=== PATIENT | female | born 1950 | race Caucasian/White ===

== ENCOUNTER → 2016-06-19 | Outpatient (CLI) | payer BC ==
[~2016-06-19] MED LIST: ERGO500037 PO; EYE DROPS OPB; IPRASOL4 INH; LDDP5 TD; MOME100A INH; MULT-506 PO; PARO1TAB27 PO; POLY335019 PO; PRED20TA PO; PRLSR20 PO; SUCR1TAB29 PO; TRAV0.00 OPB; ULT50X PO
[2016-06-19 12:51] LABS: BASO % 0.8 %; BASO ABS # 0.04 K/uL (0-0.2); COMPLETE YES; EOS % 1.9 %; HEMATOCRIT 41.7 % (37-47); IG% 0.2 %; LYMPH % 36.3 %; LYMPH ABS # 1.75 K/uL (1.2-3.4); MEAN CELL VOLUME 90.8 fL (80-100); MEAN CORPUSCULAR HEMOGLOBIN 30.7 pg (25-34); MEAN CORPUSCULAR HGB CONC 33.8 g/dl (32-36); MEAN PLATELET VOLUME 10.4 fL (7.4-10.4); MONO % 7.3 %; NEUT % 53.5 %; PLATELET COUNT 263 K/uL (130-400); RED BLOOD COUNT 4.59 M/uL (4.2-5.4); WHITE BLOOD COUNT 4.82 K/uL (4.8-10.8)
[2016-06-19 12:52] LABS: URINE APPEARANCE CLEAR (CLEAR); URINE BILIRUBIN NEG (NEG); URINE COLOR DK YELLOW; URINE EPITHELIAL CELL AUTO >30 /lpf (0-5); URINE NITRITE NEG (NEG); URINE SPECIFIC GRAVITY 1.027 (1.000-1.030); UROBILINOGEN NEG (NEG); ZZUR CULT IF INDIC CLEAN CATCH NO
[2016-06-19 12:55] LABS: MANUAL MICROSCOPIC REQUIRED? NO; REVIEW REQ? NO
[2016-06-19 13:18] LABS: ALT/SGPT 22 U/L (12-78); AST/SGOT 26 U/L (15-37); BLOOD UREA NITROGEN 19 mg/dl (7-18); BUN/CREATININE RATIO 27.9 (10-20); CALCIUM 9.1 mg/dl (8.5-10.1); CARBON DIOXIDE 26 mmol/L (21-32); CHLORIDE 106 mmol/L (98-107); CHOLESTEROL 226 mg/dl (0-200); CREATININE 0.69 mg/dl (0.60-1.20); GLUCOSE 88 mg/dl (70-99); POTASSIUM 4.2 mmol/L (3.5-5.1); SODIUM 140 mmol/L (136-145)
[2016-06-19 13:20] LABS: ALB/GLOB RATIO 1.3 (0.9-2); ALKALINE PHOSPHATASE 68 U/L (45-117); CHOLESTEROL/HDL RATIO 2.8; HDL CHOLESTEROL 80 mg/dl; LDL CHOLESTEROL CALCULATED 130 mg/dl; TRIGLYCERIDES 79 mg/dl (0-150); VERY LOW DENSITY LIPOPROT CALC 16 mg/dl
[2016-06-19 13:33] LABS: ESTIMATED AVERAGE GLUCOSE 111 mg/dl; HA1C FLAG Normal (Normal)
== END | disposition home or self-care (01) ==
LOC: C.LABBFT 09:39
PROVIDERS: ATTEND Internal Medicine
DX: R10.13 Epigastric pain (principal); E55.9 Vitamin D deficiency, unspecified; R73.01 Impaired fasting glucose; E53.8 Deficiency of other specified B group vitamins

== ENCOUNTER → 2016-07-23 | Day surgery (SDC) | payer BC ==
[2016-07-20 09:29] VITALS: Ht 160 cm; Wt 49.5 kg
[~2016-07-23] VITALS: Ht 160 cm; Wt 49.5 kg
[~2016-07-23] MED LIST changes: +ALBUTEROL HFA INHALER 8.5 GM INH ONE; +DEXAMETHASONE SOD INJ 4 MG/ML VIAL ONE; -EYE DROPS OPB; +HYDROCORTISONE SOD SUCCINATE 100 MG/2 ML VIAL ONE; +LIDOCAINE HCL 2% 2 ML VIAL (20MG/ML) ONE; +MIDAZOLAM HCL 1 MG/ML 2ML VIAL ONE; +ONDANSETRON INJ 2 MG/ML 2 ML VIAL ONE; -PRED20TA PO; +PROPOFOL IV EMULSION 10 MG/ML 20 ML VIAL IV ONE; +SODIUM CHLORIDE 0.9% 500ML 500 ML IV ONE; -TRAV0.00 OPB
[2016-07-23 10:31] VITALS: TEMP 36.5
--- NOTE | 2016-07-23 11:42 | Endo History and Physical ---
History & Physical Date of Service: Jul 23, 2016. Chief Complaint: EPIGASTRIC ABDOMINAL PAIN Referring Physician: DR. WAYNE History of Present Illness 65 yo CF who presents for EGD secondary to epigastric abdominal pain. Past Medical History Arthritis, Asthma, Pulmonary Emboli, Glaucoma, Cancer, Thrombophlebitis, COPD, Thyroid Disease, Liver Disease, Depression Past Surgical History Hx Cardiac Surgery: No Hx Internal Defibrillator: No Hx Pacemaker: No Hx Abdominal Surgery: Yes (BOWEL OBSTRUCTION) Hx of Implantable Prosthesis: No Hx Post-Op Nausea and Vomiting: No Hx Cancer Surgery: Yes (STOMACH REMOVAL, PORT-A-CATH INSERTION, FEEDING TUBE INSERTION AND REMOVAL) Hx Thoracic Surgery: No Hx Orthopedic: Yes (RT SHOULDER SURGERY X2, LT SHOULDER X1, LT KNEE SURGERY) Hx Urinary Tract Surgery: No Family History None Social History Smoking Status: Former Smoker Hx Substance Use: No Hx Alcohol Use: No Allergies Coded Allergies: Diltiazem (Verified Allergy, Mild, RASH, 07/23/16) Current Medications Reported Home Medications Medications Dose Route/Sig Max Daily Dose Days Date Category Vitamin D 66441 Unit (Ergocalciferol) 50,000 Unit Cap 50,000 Unit PO WK 07/20/16 Reported Paxil (Paroxetine HCl) 20 Mg Tab 20 Mg PO QAM 07/20/16 Reported Prilosec (Omeprazole) 20 Mg Capcr 20 Mg PO QAM 09/14/15 Reported Duoneb (Ipratropium-Albuterol) 3 Ml Nebu 1 Treatment INH Q4H PRN 08/31/15 Reported Miralax (Polyethylene Glycol 3350) 1 Pow Pow 17 Gm PO HS 08/31/15 Reported Multivitamin (Multivitamins) Tab 1 Tab PO HS 08/31/15 Reported Dulera 100/5 Mcg (Mometasone Furoate-Formoterol) 1 Aer Aer 2 Puffs INH BID 08/28/13 Reported Vital Signs Weight (Kilograms): 49.55 Height (Feet): 5 Height (Inches): 3 Date Time Temp Pulse Resp B/P Pulse Ox O2 Delivery O2 Flow Rate FiO2 07/23/16 10:31 36.5 78 24 159/81 95 Room Air Physical Exam General Appearance: WD/WN, no apparent distress Respiratory/Chest: Auscultation: breath sounds normal Cardiovascular: Heart Auscultation: RRR Abdomen: Bowel Sounds: normal Inspection & Palpation: soft, non-distended, no tenderness, guarding & rebound Assessment and Plan Assessment: 65 yo CF who presents for EGD secondary to epigastric abdominal pain. Plan: Proceed with EGD.
--- NOTE | 2016-07-23 12:02 | Discharge Instructions ---
Endoscopy Patient Instructions Date / Procedure(s) Performed Jul 23, 2016. EGD Allergy Information Coded Allergies: Diltiazem (Verified Allergy, Mild, RASH, 07/23/16) Discharge Date / Findings Jul 23, 2016. Inflammation and smith at site of prior anastomosis in stomach s/p biopsies Medication Instructions OK to resume all medications today as prescribed. Reported Home Medications Medications Dose Route/Sig Max Daily Dose Days Date Category Vitamin D 55341 Unit (Ergocalciferol) 50,000 Unit Cap 50,000 Unit PO WK 07/20/16 Reported Paxil (Paroxetine HCl) 20 Mg Tab 20 Mg PO QAM 07/20/16 Reported Prilosec (Omeprazole) 20 Mg Capcr 20 Mg PO QAM 09/14/15 Reported Duoneb (Ipratropium-Albuterol) 3 Ml Nebu 1 Treatment INH Q4H PRN 08/31/15 Reported Miralax (Polyethylene Glycol 3350) 1 Pow Pow 17 Gm PO HS 08/31/15 Reported Multivitamin (Multivitamins) Tab 1 Tab PO HS 08/31/15 Reported Dulera 100/5 Mcg (Mometasone Furoate-Formoterol) 1 Aer Aer 2 Puffs INH BID 08/28/13 Reported Provider Instructions Activity Restrictions - No exercising or heavy lifting for 24 hours. - Do not drink alcohol the day of the procedure. - Do not drive a car or operate machinery until the day after the procedure. - Do not make any important decisions or sign important papers in 24 hours after the procedure. Following Day: - Return to full activity which may include returning to work/school. Diet Start your diet with liquids and light foods (jello, soup, juice, toast). Then eat your usual diet if not nauseated. Treatment For Common After Affects For mild abdominal pain, bloating, or excessive gas: - Rest - Eat lightly - Lie on right side Follow-Up Information Follow-up with DR. WAYNE as scheduled Anesthesia Information What You Should Know You have had a procedure that required some medicine to reduce anxiety and discomfort. This treatment is called moderate sedation. After receiving the treatment, you may be sleepy, but you will be able to breathe on your own. The effects of the treatment may last for several hours. Follow these instructions along with Activity/Diet recommendations noted above: * Do NOT do anything where dizziness or clumsiness would be dangerous. * Rest quietly at home today, then you can be up and about tomorrow. * Have a responsible person stay with you the rest of today. * You may have had an I.V. today. If so, you may take the dressing off later today. Recommendations Call your doctor if: * Trouble breathing * Continuous vomiting for more than 24 hours * Temperature above 101 degrees * Severe abdominal pain or bloating * Pain not relieved by pain medicine ordered * There is increased drainage or redness from any incision * A large amount of rectal bleeding greater than 2-3 tablespoons. (If you had a polyp/s removed or have hemorrhoids, a small amount of blood - from the rectum is to be expected.) * You have any unanswered questions or concerns. IN THE EVENT OF A SERIOUS EMERGENCY, GO TO THE NEAREST EMERGENCY ROOM Your discharge instructions were prepared by provider Arash Kee. Patient Instructions Signature Page Odalis Castellanos Patient (or Guardian) Signature/Date: I have read and understand the instructions given to me by my caregivers. Caregiver/RN/Doctor Signature/Date: The above-named patient and/or guardian has received patient instructions on this date. + Original Patient Signature Page (only) stays with chart. Please make copy for patient.
--- NOTE | 2016-07-23 12:13 | GI REPORT ---
Procedure Date: 07/23/2016 11:35 AM Procedure: Upper GI endoscopy Indications: Epigastric abdominal pain Medicines: Monitored Anesthesia Care Complications: No immediate complications. Estimated Blood Loss: Estimated blood loss: none. Procedure: Pre-Anesthesia Assessment: - Prior to the procedure, a History and Physical was performed, and patient medications and allergies were reviewed. The patient's tolerance of previous anesthesia was also reviewed. The risks and benefits of the procedure and the sedation options and risks were discussed with the patient. All questions were answered, and informed consent was obtained. Prior Anticoagulants: The patient has taken no previous anticoagulant or antiplatelet agents. ASA Grade Assessment: III - A patient with severe systemic disease. After reviewing the risks and benefits, the patient was deemed in satisfactory condition to undergo the procedure. After obtaining informed consent, the endoscope was passed under direct vision. Throughout the procedure, the patient's blood pressure, pulse, and oxygen saturations were monitored continuously. The scope was introduced through the mouth, and advanced to the jejunum. The upper GI endoscopy was accomplished without difficulty. The patient tolerated the procedure well. Findings: The esophagus was normal. 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 The gastrojejunal anastomosis was characterized by an intact staple line. This was traversed. The ulzjt-mt-jmzphar limb was characterized by healthy appearing mucosa. The oomhuhvh-of-axxmxhw limb was not examined as it could not be found. Biopsies were taken with a cold forceps for histology with removal of 2 smith. The examined jejunum was normal. Impression: - Normal esophagus. - Joann-en-Y gastrojejunostomy with gastrojejunal anastomosis characterized by an intact staple line. Biopsied. - Normal examined jejunum. Recommendation: - Resume previous diet. - Continue present medications. - Await pathology results. - Return to primary care physician as previously scheduled. Arash Kee DO 07/23/2016 12:13:04 PM This report has been signed electronically. Note Initiated On: 07/23/2016 11:35 AM I attest to the content of the Intraoperative Record and orders documented therein, exceptions below
--- NOTE | 2016-07-23 12:15 | Anesthesiology Progress Note ---
Anesthesia Post Op Note Date & Time Jul 23, 2016 at 12:15 Vital Signs Vital Signs Past 12 Hours Date Time Temp Pulse Resp B/P Pulse Ox O2 Delivery O2 Flow Rate FiO2 07/23/16 12:02 74 18 93/50 97 Room Air 07/23/16 10:31 36.5 78 24 159/81 95 Room Air Notes Mental Status: alert / awake / arousable, participated in evaluation Pt Amnestic to Procedure: Yes Nausea / Vomiting: adequately controlled Pain: adequately controlled Airway Patency, RR, SpO2: stable & adequate BP & HR: stable & adequate Hydration State: stable & adequate Anesthetic Complications: no major complications apparent
[2016-07-23 12:38] VITALS: BP 129/66; PULSE 75; O2SAT 94
== END | disposition home or self-care (01) ==
LOC: C.GI 10:03
PROVIDERS: ATTEND Internal Medicine
DX: K29.50 Unspecified chronic gastritis without bleeding (principal); R10.13 Epigastric pain; Z85.028 Personal history of other malignant neoplasm of stomach; J44.9 Chronic obstructive pulmonary disease, unspecified; Z86.711 Personal history of pulmonary embolism; Z87.891 Personal history of nicotine dependence; E07.9 Disorder of thyroid, unspecified

== ENCOUNTER 2016-07-27 18:23 | Observation (INO) | payer BC ==
[~2016-07-27] VITALS: Ht 157.5 cm; Wt 51.6 kg
[~2016-07-27 18:23] MED LIST changes: -ALBUTEROL HFA INHALER 8.5 GM INH ONE; -DEXAMETHASONE SOD INJ 4 MG/ML VIAL ONE; -HYDROCORTISONE SOD SUCCINATE 100 MG/2 ML VIAL ONE; -LDDP5 TD; -LIDOCAINE HCL 2% 2 ML VIAL (20MG/ML) ONE; -MIDAZOLAM HCL 1 MG/ML 2ML VIAL ONE; -ONDANSETRON INJ 2 MG/ML 2 ML VIAL ONE; -PROPOFOL IV EMULSION 10 MG/ML 20 ML VIAL IV ONE; -SODIUM CHLORIDE 0.9% 500ML 500 ML IV ONE; -SUCR1TAB29 PO; -ULT50X PO
[2016-07-27] MEDS ORDERED: SODIUM CHLORIDE 0.9% 1000ML 1,000 ML IV STA (18:28)
[2016-07-27] MEDS ORDERED: ONDANSETRON INJ 2 MG/ML 2 ML VIAL IV STA (18:36)
[2016-07-27 18:48] LABS: BASO % 0.6 %; BASO ABS # 0.04 K/uL (0-0.2); COMPLETE YES; EOS % 2.5 %; HEMATOCRIT 43.3 % (37-47); IG% 0.1 %; LYMPH % 41.8 %; LYMPH ABS # 2.82 K/uL (1.2-3.4); MEAN CELL VOLUME 91.4 fL (80-100); MEAN CORPUSCULAR HEMOGLOBIN 30.6 pg (25-34); MEAN CORPUSCULAR HGB CONC 33.5 g/dl (32-36); MEAN PLATELET VOLUME 10.1 fL (7.4-10.4); MONO % 6.8 %; NEUT % 48.2 %; PLATELET COUNT 292 K/uL (130-400); RED BLOOD COUNT 4.74 M/uL (4.2-5.4); WHITE BLOOD COUNT 6.75 K/uL (4.8-10.8)
--- NOTE | 2016-07-27 18:58 | DIAGNOSTIC IMAGING REPORT ---
CHEST ONE VIEW PORTABLE CLINICAL HISTORY: EVALUATE WEAKNESS dyspnea COMPARISON STUDY: 01/30/2016 FINDINGS: Emphysematous change. No acute infiltrate. Central catheters. Vena cava. IMPRESSION: Emphysematous change. No acute process. Electronically signed by: Jose E Draper M.D. 07/27/2016 6:56 PM Dictated Date/Time: 07/27/2016 6:56 PM
[2016-07-27 18:59] LABS: INR 0.9 (0.9-1.1); PARTIAL THROMBOPLASTIN RATIO 0.9; PROTHROMBIN TIME (PATIENT) 9.8 SECONDS (9.0-12.0)
[2016-07-27] MEDS: FENTANYL CITRATE INJ 50 MCG/1 ML 2 ML VIAL IV PRN ×3 (19:04→23:06)
[2016-07-27 19:11] LABS: ALT/SGPT 31 U/L (12-78); BLOOD UREA NITROGEN 21 mg/dl (7-18); CARBON DIOXIDE 26 mmol/L (21-32); CHLORIDE 103 mmol/L (98-107); GLUCOSE 137 mg/dl (70-99); POTASSIUM 3.9 mmol/L (3.5-5.1); SODIUM 139 mmol/L (136-145)
[2016-07-27 19:21] LABS: URINE APPEARANCE CLEAR (CLEAR); URINE BILIRUBIN NEG (NEG); URINE COLOR DK YELLOW; URINE NITRITE NEG (NEG); URINE PH 5.5 (4.5-7.5); URINE SPECIFIC GRAVITY 1.029 (1.000-1.030); UROBILINOGEN NEG (NEG)
[2016-07-27 19:21] LABS: ALKALINE PHOSPHATASE 94 U/L (45-117); AST/SGOT 35 U/L (15-37)
[2016-07-27 19:22] LABS: MANUAL MICROSCOPIC REQUIRED? NO; REVIEW REQ? NO
[2016-07-27] MEDS ORDERED: OPTIRAY 320 IV PRN (20:15)
--- NOTE | 2016-07-27 20:32 | DIAGNOSTIC IMAGING REPORT ---
CHEST CTA for PULMONARY ARTERIES CT DOSE: 215.13 mGy.cm HISTORY: Chest pain dyspnea TECHNIQUE: Multiaxial CT images of the chest were performed following the intravenous administration of contrast to evaluate the pulmonary arteries. Maximal intensity projection images were also obtained. COMPARISON STUDY: None. FINDINGS: There is a normal caliber thoracic aorta with no evidence for dissection. There is no evidence for pulmonary embolus. No pleural effusions. No pneumothorax. The liver and spleen are unremarkable. No mediastinal or hilar lymphadenopathy. The central airways are patent. The lungs are clear. Moderate emphysematous change IMPRESSION: No evidence for pulmonary embolus. The lungs are clear. Moderate emphysematous change. Electronically signed by: Jose E Draper M.D. 07/27/2016 8:31 PM Dictated Date/Time: 07/27/2016 8:29 PM
--- NOTE | 2016-07-27 22:13 | History and Physical ---
History & Physical Date & Time of Service: Jul 27, 2016 at 22:12 Chief Complaint: Chest Pain Primary Care Physician: Haseeb Stout M.D. History of Present Illness Source: patient, spouse The patient is a 65-year-old female with a past medical history of gastric cancer, status post gastrectomy, with recent EGD by Dr. Kee with removal of smith. She has had persistent symptoms of epigastric area burning before and after the EGD, but during the afternoon today she developed the sudden sensation of an elephant sitting on her chest, which prompted her to come to the emergency department for assessment. She has not had this type of symptom before, and the symptoms occurred at rest. She does have baseline intermittent nausea, but no vomiting. Past Medical/Surgical History Medical Problems: (1) Asthma Status: Chronic (2) blood clot (knee, chest) Status: Resolved (3) Bronchitis Status: Resolved (4) emphysema Status: Chronic (5) History of gastrectomy Status: Resolved (6) Pneumonia Status: Resolved (7) Skin problems Status: Chronic (8) Stomach cancer Status: Resolved (9) Stomach problems Status: Chronic Surgical Problems: (1) Hx of hysterectomy Status: Resolved Family History FHx: cancer FHx: lung disease Social History Smoking Status: Former Smoker Smokeless Tobacco Use: No Alcohol Use: none Drug Use: none Marital Status: Housing status: lives with family Occupational Status: employed Immunizations History of Influenza Vaccine: Yes Influenza Vaccine Date: Jul 23, 2009 History of Tetanus Vaccine?: Yes History of Pneumococcal: Yes Pneumococcal Date: Jul 23, 2009 History of Hepatitis B Vaccine: No Multi-Drug Resistant Organisms History of MDRO: Yes Allergies Coded Allergies: Diltiazem (Verified Allergy, Mild, RASH, 07/27/16) Home Medications Scheduled Ergocalciferol (Vitamin D 33154 Unit), 50,000 UNIT PO WK Mometasone Furoate-Formoterol (Dulera 100/5 Mcg), 2 PUFFS INH BID Omeprazole (Prilosec), 20 MG PO QAM Paroxetine (Paxil), 20 MG PO QAM Polyethylene Glycol 3350 (Miralax), 17 GM PO HS Scheduled PRN Ipratropium-Albuterol (Duoneb), 1 TREATMENT INH Q4H PRN for SOB/Wheezing Review of Systems The patient denies palpitations, lower extremity swelling, vision change, hearing change, sore throat, fevers, chills, sweats, weight change, fatigue, vomiting, pelvic pain, blood in urine or stool, dysuria, urinary frequency or urgency, lightheadedness, dizziness, headache, memory loss, rash, abnormal bruising or bleeding, imbalance, focal or generalized weakness, numbness or tingling in arms or legs, arthralgias or myalgias, back or neck pain, night sweats, or allergy symptoms. The review of systems is otherwise negative other than for that already noted above, and at least 10 systems have been reviewed. Physical Exam Vital Signs Date Time Temp Pulse Resp B/P Pulse Ox O2 Delivery O2 Flow Rate FiO2 07/27/16 20:20 73 16 127/72 96 Room Air 07/27/16 19:35 70 07/27/16 18:23 98 Room Air 07/27/16 18:23 98 Room Air 07/27/16 18:23 36.6 86 17 124/91 98 Room Air 07/27/16 18:23 98 Room Air The patient is awake, well-developed and adequately nourished, alert and oriented 3, normocephalic and atraumatic, lying in bed and in no acute distress. HEENT--PERRL, EOMI, mucous membranes and oropharynx mildly dry. Neck--supple, no JVD or bruits, thyroid normal, trachea midline, no adenopathy. Heart--normal S1 and S2, no extra beats, no murmurs, rubs or gallops. Lungs--clear bilaterally, no respiratory distress, no accessory muscle use. Abdomen--normal bowel sounds and soft, mild reproducible epigastric pain, nondistended, no hernias or masses, no organomegaly. Extremities--no cyanosis, clubbing or edema. There are good distal pulses b/l. Dermatologic--normal skin turgor, normal color, warm and dry, no abnormal lymph nodes, no rash. Neurologic--cranial nerves II through XII grossly intact, motor and sensory examination normal. Rheumatologic--normal range of motion, nontender, muscles and joints. Psychiatric--normal affect. Diagnostics Laboratory Results Results Past 24 Hours Test 07/27/16 18:15 07/27/16 19:05 Range/Units White Blood Count 6.75 4.8-10.8 K/uL Red Blood Count 4.74 4.2-5.4 M/uL Hemoglobin 14.5 12.0-16.0 g/dL Hematocrit 43.3 37-47 % Mean Corpuscular Volume 91.4 80-100 fL Mean Corpuscular Hemoglobin 30.6 25-34 pg Mean Corpuscular Hemoglobin Concent 33.5 32-36 g/dl Platelet Count 292 130-400 K/uL Mean Platelet Volume 10.1 7.4-10.4 fL Neutrophils (%) (Auto) 48.2 % Lymphocytes (%) (Auto) 41.8 % Monocytes (%) (Auto) 6.8 % Eosinophils (%) (Auto) 2.5 % Basophils (%) (Auto) 0.6 % Neutrophils # (Auto) 3.25 1.4-6.5 K/uL Lymphocytes # (Auto) 2.82 1.2-3.4 K/uL Monocytes # (Auto) 0.46 0.11-0.59 K/uL Eosinophils # (Auto) 0.17 0-0.5 K/uL Basophils # (Auto) 0.04 0-0.2 K/uL RDW Standard Deviation 45.8 36.4-46.3 fL RDW Coefficient of Variation 13.6 11.5-14.5 % Immature Granulocyte % (Auto) 0.1 % Immature Granulocyte # (Auto) 0.01 0.00-0.02 K/uL Prothrombin Time 9.8 9.0-12.0 SECONDS Prothromb Time International Ratio 0.9 0.9-1.1 Activated Partial Thromboplast Time 23.3 21.0-31.0 SECONDS Partial Thromboplastin Ratio 0.9 Sodium Level 139 136-145 mmol/L Potassium Level 3.9 3.5-5.1 mmol/L Chloride Level 103 98-107 mmol/L Carbon Dioxide Level 26 21-32 mmol/L Anion Gap 10.0 3-11 mmol/L Blood Urea Nitrogen 21 7-18 mg/dl Creatinine 0.80 0.60-1.20 mg/dl Est Creatinine Clear Calc Drug Dose 56.9 ml/min Estimated GFR () 90.9 Estimated GFR (Non- 78.5 BUN/Creatinine Ratio 26.0 10-20 Random Glucose 137 70-99 mg/dl Calcium Level 9.0 8.5-10.1 mg/dl Magnesium Level 2.0 1.8-2.4 mg/dl Total Bilirubin 0.3 0.2-1 mg/dl Direct Bilirubin < 0.1 0-0.2 mg/dl Aspartate Amino Transf (AST/SGOT) 35 15-37 U/L Alanine Aminotransferase (ALT/SGPT) 31 12-78 U/L Alkaline Phosphatase 94 45-117 U/L Total Creatine Kinase 100 26-192 U/L Creatine Kinase MB < 0.5 0.5-3.6 ng/ml Creatine Kinase MB Ratio 0-3.0 Troponin I < 0.015 0-0.045 ng/ml Total Protein 7.5 6.4-8.2 gm/dl Albumin 4.1 3.4-5.0 gm/dl Thyroid Stimulating Hormone (TSH) 1.110 0.300-4.500 uIu/ml Urine Color DK YELLOW Urine Appearance CLEAR CLEAR Urine pH 5.5 4.5-7.5 Urine Specific [place] 1.029 1.000-1.030 Urine Protein NEG NEG Urine Glucose (UA) NEG NEG Urine Ketones NEG NEG Urine Occult Blood NEG NEG Urine Nitrite NEG NEG Urine Bilirubin NEG NEG Urine Urobilinogen NEG NEG Urine Leukocyte Esterase NEG NEG Diagnostic Radiology Patient Name: MO SHEETS Unit Number: [id number] Dictated: 07/27/161855 Transcribed: 07/27/161855 MS Printed Date/Time: [~ rep prt dt]/[~ rep prt tm] [~ rep ct labl] - [~ rep ct ivnm] [facility] Radiology Department [place] [id number] Dictated: 07/27/161855 Transcribed: 07/27/161855 MS Printed Date/Time: [~ rep prt dt]/[~ rep prt tm] [~ rep ct labl] - [~ rep ct ivnm] [~ rep ct add3]] CHEST ONE VIEW PORTABLE CLINICAL HISTORY: EVALUATE WEAKNESS dyspnea COMPARISON STUDY: 01/30/2016 FINDINGS: Emphysematous change. No acute infiltrate. Central catheters. Vena cava. IMPRESSION: Emphysematous change. No acute process. Electronically signed by: Jose E Draper M.D. 07/27/2016 6:56 PM Dictated Date/Time: 07/27/2016 6:56 PM The status of this report is Signed. Draft = Not yet reviewed or approved by Radiologist. Signed = Reviewed and approved by Radiologist. <AttendingPhy></AttendingPhy> <FamilyPhy>Haseeb Stout M.D.</FamilyPhy > <PrimaryPhy>Haseeb Stout M.D.</PrimaryPhy> <UnitNumber>[id number]</ UnitNumber> <VisitNumber>[id number]</VisitNumber> <PatientName>MO SHEETS</PatientName> <DateOfBirth>1950</DateOfBirth> <Location>[facility]</Location > <ServiceDate>07/27/16</ServiceDate> <MNE>ESINDI</MNE> <OrderingPhy>Christopher Fay MD</OrderingPhy> <OrderingPhyMNE>f rep ord dr wright</OrderingPhyMNE> < DictatingPhyMNE>f rep dict dr wright</DictatingPhyMNE> <CCListMNE>f rep ct mne</ CCListMNE> <AdmittingPhyMNE>f pt admit dr wright</AdmittingPhyMNE> <AttendingPhyMNE >f pt attend dr wright</AttendingPhyMNE> <ConsultingPhyMNE>f pt consult dr wright</ConsultingPhyMNE> <FamilyPhyMNE>f pt fam dr wright</FamilyPhyMNE> <OtherPhyMNE>f pt other dr wright</OtherPhyMNE> < PrimaryPhyMNE>f pt prim care dr wright</PrimaryPhyMNE> <ReferringPhyMNE>f pt referring dr wright</ReferringPhyMNE> Patient Name: MO SHEETS Unit Number: [id number] Dictated: 07/27/162028 Transcribed: 07/27/162028 MS Printed Date/Time: [~ rep prt dt]/[~ rep prt tm] [~ rep ct labl] - [~ rep ct ivnm] [facility] Radiology Department [place] [id number] Dictated: 07/27/162028 Transcribed: 07/27/162028 MS Printed Date/Time: [~ rep prt dt]/[~ rep prt tm] [~ rep ct labl] - [~ rep ct ivnm] [~ rep ct add3]] CHEST CTA for PULMONARY ARTERIES CT DOSE: 215.13 mGy.cm HISTORY: Chest pain dyspnea TECHNIQUE: Multiaxial CT images of the chest were performed following the intravenous administration of contrast to evaluate the pulmonary arteries. Maximal intensity projection images were also obtained. COMPARISON STUDY: None. FINDINGS: There is a normal caliber thoracic aorta with no evidence for dissection. There is no evidence for pulmonary embolus. No pleural effusions. No pneumothorax. The liver and spleen are unremarkable. No mediastinal or hilar lymphadenopathy. The central airways are patent. The lungs are clear. Moderate emphysematous change IMPRESSION: No evidence for pulmonary embolus. The lungs are clear. Moderate emphysematous change. Electronically signed by: Jose E Draper M.D. 07/27/2016 8:31 PM Dictated Date/Time: 07/27/2016 8:29 PM The status of this report is Signed. Draft = Not yet reviewed or approved by Radiologist. Signed = Reviewed and approved by Radiologist. <AttendingPhy></AttendingPhy> <FamilyPhy>Haseeb Stout M.D.</FamilyPhy > <PrimaryPhy>Haseeb Stout M.D.</PrimaryPhy> <UnitNumber>[id number]</ UnitNumber> <VisitNumber>[id number]</VisitNumber> <PatientName>MO SHEETS</PatientName> <DateOfBirth>1950</DateOfBirth> <Location>[facility]</Location > <ServiceDate>07/27/16</ServiceDate> <MNE>RIPI</MNE> <OrderingPhy>Christopher Fay MD</OrderingPhy> <OrderingPhyMNE>f rep ord dr wright</OrderingPhyMNE> < DictatingPhyMNE>f rep dict dr wright</DictatingPhyMNE> <CCListMNE>f rep ct mne</ CCListMNE> <AdmittingPhyMNE>f pt admit dr wright</AdmittingPhyMNE> <AttendingPhyMNE >f pt attend dr wright</AttendingPhyMNE> <ConsultingPhyMNE>f pt consult dr wright</ConsultingPhyMNE> <FamilyPhyMNE>f pt fam dr wright</FamilyPhyMNE> <OtherPhyMNE>f pt other dr wright</OtherPhyMNE> < PrimaryPhyMNE>f pt prim care dr wright</PrimaryPhyMNE> <ReferringPhyMNE>f pt referring dr wright</ReferringPhyMNE> EKG EKG shows normal sinus rhythm at 78 bpm, there are no acute ST-T changes. Impression Assessment and Plan Chest pressure/heaviness--the patient will be admitted to the telemetry unit for serial cardiac enzymes, cardiac rhythm monitoring and a 2-D echocardiogram with Dopplers. Stomach cancer/status post partial gastrectomy/status post recent EGD with staple removal--in the differential for the patient's symptoms includes that of esophageal spasm. We will change omeprazole 20 mg by mouth daily to pantoprazole 40 mg by mouth every morning. Add famotidine 20 mg by mouth at bedtime and Carafate 1 g by mouth before meals and at bedtime. Depression--continue fluoxetine 20 mg by mouth daily. COPD--[employer] for formulary interchange. Level of Care Telemetry Advanced Directives Existing Advance Directive: No Existing Living Will: No Existing Power of Projection Camera Operator: No Resuscitation Status FULL RESUSCITATION VTE Prophylaxis Risk Level: Low Given or contraindicated: SCD's Social Service Consult None Apply
[2016-07-27] MEDS ORDERED: NITROGLYCERIN 0.4 MG SL PER TAB CHARGE SL PRN (23:15)
[2016-07-27] MEDS ORDERED: ALBUT/IPRATROP 3MG/0.5MG NEB 3 ML VIAL INH PRN (23:15)
[2016-07-27] MEDS ORDERED: ACETAMINOPHEN 325 MG TAB PO PRN (23:15)
[2016-07-27] MEDS ORDERED: ZOLPIDEM TARTRATE 5 MG TAB PO PRN (23:15)
[2016-07-27] MEDS ORDERED: FAMOTIDINE 20 MG TAB PO STA (23:41)
[2016-07-27] MEDS ORDERED: POLYETHYLENE (MIRALAX) 17 GM PACK PO STA (23:42)
[2016-07-28] VITALS (10 sets, daily range): BP systolic 105–154; BP diastolic 67–87; PULSE 63–72; TEMP 36.5–36.9; O2SAT 90–96; Ht 157.5 cm; Wt 51.6 kg
--- NOTE | 2016-07-28 01:52 | EMERGENCY ROOM VISIT NOTE ---
History Report prepared by Sixto: Angy Jara Under the Supervision of: Dr. Christopher Fay M.D. 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 She had just eaten some shrimp for dinner and went into the other room to watch a movie with her . She was sitting in her recliner when she suddenly developed sharp chest pain and heaviness in her chest. She states, "It feels like an elephant is sitting on my chest." Her pain radiates into her left shoulder blade. Taking a deep breath exacerbates her pain. The patient rates her pain as a 10/10 in severity. She has never experienced pain like this before. The patient was brought to the ED by ambulance. She was given 5 baby aspirin and nitroglycerin en route, which she states has not helped to alleviate any of her pain. She is still experiencing chest heaviness. The patient has a history of stomach cancer and gastrectomy. She has chronic epigastric abdominal pain as a result. She states that recently she has been having increased epigastric pain. Dr. Kee performed an EGD 4 days ago. She states that he found some inflammation, removed a couple of smith, and performed a biopsy. Her abdominal pain seems to be worsening since then. Pt denies LOC, headache, fevers, chills, diaphoresis , visual changes, neck pain, personal history or family history of aneurysm or pulmonary embolism, uncontrolled hypertension, breathing difficulties, leg swelling, coagulation abnormalities, prolonged travel, recent surgery or immobilization, nausea, vomiting, melena, hematochezia, urinary symptoms, numbness, weakness, lymphadenopathy, rash, or other complaints. Source of History: patient Onset: 1 hour ASSESSMENT COUNSELOR Position: chest Symptom Intensity: 10/10 Quality: sharp Timing: constant Modifying Factors (Worsening): breathing Associated Symptoms: + abdominal pain Note: Her pain radiates into her shoulder. Review of Systems See HPI for pertinent positives and negatives. A total of ten systems were reviewed and were otherwise negative. Past Medical & Surgical Medical Problems: (1) Asthma (2) blood clot (knee, chest) (3) Bronchitis (4) Chest pressure (5) emphysema (6) Epigastric pain (7) History of gastrectomy (8) Pneumonia (9) Skin problems (10) Stomach cancer (11) Stomach problems Surgical Problems: (1) Hx of hysterectomy Family History FHx: cancer FHx: lung disease Social History Smoking Status: Former Smoker Alcohol Use: none Drug Use: none Marital Status: Housing Status: lives with significant other Occupation Status: employed Current/Historical Medications Scheduled Ergocalciferol (Vitamin D 43127 Unit), 50,000 UNIT PO WK Mometasone Furoate-Formoterol (Dulera 100/5 Mcg), 2 PUFFS INH BID Omeprazole (Prilosec), 20 MG PO QAM Paroxetine (Paxil), 20 MG PO QAM Polyethylene Glycol 3350 (Miralax), 17 GM PO HS Scheduled PRN Ipratropium-Albuterol (Duoneb), 1 TREATMENT INH Q4H PRN for SOB/Wheezing Allergies Coded Allergies: Diltiazem (Verified Allergy, Mild, RASH, 07/27/16) Physical Exam Vital Signs Date Time Temp Pulse Resp B/P Pulse Ox O2 Delivery O2 Flow Rate FiO2 07/27/16 23:16 67 07/27/16 22:27 80 16 133/80 97 Room Air 07/27/16 20:20 73 16 127/72 96 Room Air 07/27/16 19:35 70 07/27/16 18:23 98 Room Air 07/27/16 18:23 98 Room Air 07/27/16 18:23 36.6 86 17 124/91 98 Room Air 07/27/16 18:23 98 Room Air Physical Exam GENERAL: Awake, alert, uncomfortable-appearing, in no distress HENT: Normocephalic, atraumatic. Oropharynx unremarkable. EYES: Normal conjunctiva. Sclera non-icteric. NECK: Supple. No nuchal rigidity. FROM. No JVD. RESPIRATORY: Clear to auscultation. CARDIAC: Regular rate, normal rhythm. Extremities warm and well perfused. Pulses equal. ABDOMEN: Soft, non-distended. No tenderness to palpation. No rebound or guarding. No masses. RECTAL: Deferred. MUSCULOSKELETAL: Chest examination reveals no tenderness. The back is symmetrical on inspection without obvious abnormality. There is no CVA tenderness to palpation. No joint edema. LOWER EXTREMITIES: Calves are equal size bilaterally and non-tender. No edema. No discoloration. NEURO: Normal sensorium. No sensory or motor deficits noted. SKIN: No rash or jaundice noted. Medical Decision & Procedures ER Provider Diagnostic Interpretation: Radiology results as stated below per my review and radiologist interpretation: CHEST ONE VIEW PORTABLE CLINICAL HISTORY: EVALUATE WEAKNESS dyspnea COMPARISON STUDY: 01/30/2016 FINDINGS: Emphysematous change. No acute infiltrate. Central catheters. Vena cava. IMPRESSION: Emphysematous change. No acute process. Electronically signed by: Jose E Draper M.D. 07/27/2016 6:56 PM Dictated Date/Time: 07/27/2016 6:56 PM CHEST CTA for PULMONARY ARTERIES CT DOSE: 215.13 mGy.cm HISTORY: Chest pain dyspnea TECHNIQUE: Multiaxial CT images of the chest were performed following the intravenous administration of contrast to evaluate the pulmonary arteries. Maximal intensity projection images were also obtained. COMPARISON STUDY: None. FINDINGS: There is a normal caliber thoracic aorta with no evidence for dissection. There is no evidence for pulmonary embolus. No pleural effusions. No pneumothorax. The liver and spleen are unremarkable. No mediastinal or hilar lymphadenopathy. The central airways are patent. The lungs are clear. Moderate emphysematous change IMPRESSION: No evidence for pulmonary embolus. The lungs are clear. Moderate emphysematous change. Electronically signed by: Jose E Draper M.D. 07/27/2016 8:31 PM Dictated Date/Time: 07/27/2016 8:29 PM Laboratory Results 07/27/16 18:15 Red Blood Count 4.74, Mean Corpuscular Volume 91.4, Mean Corpuscular Hemoglobin 30.6, Mean Corpuscular Hemoglobin Concent 33.5, Mean Platelet Volume 10.1, Neutrophils (%) (Auto) 48.2, Lymphocytes (%) (Auto) 41.8, Monocytes (%) (Auto) 6.8, Eosinophils (%) (Auto) 2.5, Basophils (%) (Auto) 0.6, Neutrophils # (Auto) 3.25, Lymphocytes # (Auto) 2.82, Monocytes # (Auto) 0.46, Eosinophils # (Auto) 0.17, Basophils # (Auto) 0.04 07/27/16 18:15 Test 07/27/16 18:15 07/27/16 19:05 07/27/16 23:12 White Blood Count 6.75 K/uL (4.8-10.8) Red Blood Count 4.74 M/uL (4.2-5.4) Hemoglobin 14.5 g/dL (12.0-16.0) Hematocrit 43.3 % (37-47) Mean Corpuscular Volume 91.4 fL (80-100) Mean Corpuscular Hemoglobin 30.6 pg (25-34) Mean Corpuscular Hemoglobin Concent 33.5 g/dl (32-36) Platelet Count 292 K/uL (130-400) Mean Platelet Volume 10.1 fL (7.4-10.4) Neutrophils (%) (Auto) 48.2 % Lymphocytes (%) (Auto) 41.8 % Monocytes (%) (Auto) 6.8 % Eosinophils (%) (Auto) 2.5 % Basophils (%) (Auto) 0.6 % Neutrophils # (Auto) 3.25 K/uL (1.4-6.5) Lymphocytes # (Auto) 2.82 K/uL (1.2-3.4) Monocytes # (Auto) 0.46 K/uL (0.11-0.59) Eosinophils # (Auto) 0.17 K/uL (0-0.5) Basophils # (Auto) 0.04 K/uL (0-0.2) RDW Standard Deviation 45.8 fL (36.4-46.3) RDW Coefficient of Variation 13.6 % (11.5-14.5) Immature Granulocyte % (Auto) 0.1 % Immature Granulocyte # (Auto) 0.01 K/uL (0.00-0.02) Prothrombin Time 9.8 SECONDS (9.0-12.0) Prothromb Time International Ratio 0.9 (0.9-1.1) Activated Partial Thromboplast Time 23.3 SECONDS (21.0-31.0) Partial Thromboplastin Ratio 0.9 Anion Gap 10.0 mmol/L (3-11) Est Creatinine Clear Calc Drug Dose 56.9 ml/min Estimated GFR () 90.9 Estimated GFR (Non- 78.5 BUN/Creatinine Ratio 26.0 (10-20) Calcium Level 9.0 mg/dl (8.5-10.1) Magnesium Level 2.0 mg/dl (1.8-2.4) Total Bilirubin 0.3 mg/dl (0.2-1) Direct Bilirubin < 0.1 mg/dl (0-0.2) Aspartate Amino Transf (AST/SGOT) 35 U/L (15-37) Alanine Aminotransferase (ALT/SGPT) 31 U/L (12-78) Alkaline Phosphatase 94 U/L (45-117) Total Creatine Kinase 100 U/L (26-192) Creatine Kinase MB < 0.5 ng/ml (0.5-3.6) Troponin I < 0.015 ng/ml (0-0.045) Total Protein 7.5 gm/dl (6.4-8.2) Albumin 4.1 gm/dl (3.4-5.0) Thyroid Stimulating Hormone (TSH) 1.110 uIu/ml (0.300-4.500) Urine Color DK YELLOW Urine Appearance CLEAR (CLEAR) Urine pH 5.5 (4.5-7.5) Urine Specific [place] 1.029 (1.000-1.030) Urine Protein NEG (NEG) Urine Glucose (UA) NEG (NEG) Urine Ketones NEG (NEG) Urine Occult Blood NEG (NEG) Urine Nitrite NEG (NEG) Urine Bilirubin NEG (NEG) Urine Urobilinogen NEG (NEG) Urine Leukocyte Esterase NEG (NEG) Creatine Kinase MB Ratio (0-3.0) Laboratory results reviewed by me Medications Administered Medications (Trade) Dose Ordered Sig/Brandi Route Start Time Stop Time Status Last Admin Dose Admin Sodium Chloride (Nss 1000ml) 1,000 ml @ 125 mls/hr Q8H STAT IV 07/27/16 18:28 07/28/16 01:41 DC 07/27/16 19:03 125 MLS/HR Fentanyl Citrate (Fentanyl Inj) 50 mcg Q15M PRN IV 07/27/16 18:45 07/28/16 01:29 DC 07/27/16 23:06 50 MCG Ondansetron HCl (Zofran Inj) 4 mg NOW STAT IV 07/27/16 18:36 07/27/16 18:37 DC 07/27/16 19:01 4 MG ECG Indication: chest pain Rate (beats per minute): 70 Rhythm: normal sinus Findings: no acute ischemic change, no ectopy Comparison ECG Date: prehospital ECG 07/27/16 Change: no significant change ED Course 1826: The patient was evaluated in room B10. A complete history and physical exam was performed. 1827: NSS 1000 ml @ 125 mls/hr IV 193: Zofran 4 mg IV 1844: Fentanyl Citrate 50 mcg IV - PRN 2006: I reassessed the patient at this time. She is feeling a little better. 2207: I spoke with Dr. Plunkett. We discussed the patients case. The patient will be evaluated by the [facility] for further management. 2209: I reassessed the patient at this time. She is resting comfortably. I discussed the results and treatment plan with the patient. I answered all pertaining questions that she had. She expressed understanding and verbalized agreement. Medical Decision Triage Nursing notes reviewed. The patient's presentation and history were concerning for chest pain. Etiologies such as gastrointestinal, cardiac ischemia, aortic dissection, pulmonary embolism, pneumonia, pneumothorax, musculoskeletal, infections, as well as others were entertained. The patient has had no relief with nitro and ASA by EMS. The patient was given Zofran and fentanyl. Chest x-ray was unremarkable. ECG was nonischemic. Prehospital ECG was nonischemic. The patient had a normal CBC, chemistry panel , LFTs and lipase. Troponin was negative. D-dimer was performed. D-dimer was mildly elevated. The patient had any chest CT performed and this was negative. She was feeling better but the pain started to recur. She was given a second dose of IV fentanyl. Consultation was made with internal medicine for further evaluation and management of her substernal chest pain. The chart was completed utilizing [employer] Speech voice recognition software. Grammatical errors, random word insertions, pronoun errors, and incomplete sentences are an occasional consequence of this system due to software limitations, ambient noise, and hardware issues. Any formal questions or concerns about the content, text, or information contained within the body of this dictation should be directly addressed to the physician for clarification. Consults Time Called: 2203 Consulting Physician: Dr. Plunkett Returned Call: [address] Plunkett. We discussed the patients case. The patient will be evaluated by the [facility] for further management. Impression Primary Impression: Substernal chest pain Scribe Attestation The scribe's documentation has been prepared under my direction and personally reviewed by me in its entirety. I confirm that the note above accurately reflects all work, treatment, procedures, and medical decision making performed by me. Departure Information Dispostion Being Evaluated By Hospitalist Referrals Haseeb Stout M.D. (PCP)
[2016-07-28] MEDS ORDERED: IV FLUIDS COMPLETED PRN (02:15)
[2016-07-28] MEDS: MoRPHine SULFATE 2 MG/ML CARP IV PRN ×6 (02:17→21:58)
[2016-07-28] MEDS: NSS + 20MEQ KCL 1000ML 1,000 ML IV SCH ×2 (02:17→14:25)
[2016-07-28 07:42] LABS: BASO % 0.6 %; BASO ABS # 0.03 K/uL (0-0.2); COMPLETE YES; EOS % 2.9 %; HEMATOCRIT 37.6 % (37-47); IG% 0.2 %; LYMPH % 47.9 %; MEAN CELL VOLUME 91.9 fL (80-100); MEAN CORPUSCULAR HEMOGLOBIN 30.1 pg (25-34); MEAN CORPUSCULAR HGB CONC 32.7 g/dl (32-36); MEAN PLATELET VOLUME 9.9 fL (7.4-10.4); MONO % 7.2 %; NEUT % 41.2 %; PLATELET COUNT 228 K/uL (130-400); RED BLOOD COUNT 4.09 M/uL (4.2-5.4); WHITE BLOOD COUNT 5.43 K/uL (4.8-10.8)
[2016-07-28] MEDS: DULERA~ORDER AWAITING ACTION SCH ×2 (08:00→16:00)
[2016-07-28] MEDS: PAROXETINE 20 MG TAB PO SCH (08:07)
[2016-07-28] MEDS: PANTOprazole SOD 40 MG TAB PO SCH (08:07)
[2016-07-28] MEDS: SUCRALFATE 1 GM/10 ML UDC PO SCH ×4 (08:07→21:17)
[2016-07-28] MEDS: POLYETHYLENE (MIRALAX) 17 GM PACK PO SCH (08:12)
[2016-07-28 08:39] LABS: BLOOD UREA NITROGEN 12 mg/dl (7-18); BUN/CREATININE RATIO 18.3 (10-20); CALCIUM 8.6 mg/dl (8.5-10.1); CARBON DIOXIDE 30 mmol/L (21-32); CHLORIDE 109 mmol/L (98-107); CKMB/CK RATIO 0.6 (0-3.0); CREATININE 0.64 mg/dl (0.60-1.20); GLUCOSE 80 mg/dl (70-99); MAGNESIUM 2.1 mg/dl (1.8-2.4); POTASSIUM 4.5 mmol/L (3.5-5.1); SODIUM 143 mmol/L (136-145)
[2016-07-28] MEDS: MoRPHine SULFATE 4 MG/ML 1 ML CARP\\VIAL IV PRN ×2 (14:29→16:56)
--- NOTE | 2016-07-28 15:30 | ECHOCARDIOGRAM REPORT ---
*NOTICE TO RECEIVING [employer] This information is strictly Confidential and protected under [place] law. [place] law prohibits you from making any further disclosure of this information unless further disclosure is expressly permitted by the written consent of the person to whom it pertains or is authorized by law. A general authorization for the release of medical or other information is not sufficient for this purpose. Hospital accepts no responsibility if the information is made available to any other person, INCLUDING THE PATIENT. Interpretation Summary * Name: MO SHEETS Study Date: 07/28/2016 01:53 PM BP: 105/67 mmHg * Patient Location: [facility]\S\[id number]\1 HR: 66 * : 1950 (M/d/yyyy) Gender: Female Height: 62 in * Age: 65 yrs Ethnicity: CA Weight: 114 lb * Ordering Physician: Kaushik Plunkett * Performed By: Gauri Rosario RDCS * * Reason For Study: Chest pain * BSA: 1.5 m2 * -- Conclusions -- * The left ventricle is normal in size. * There is normal left ventricular wall thickness. * Ejection Fraction = 60-65%. * Left ventricular systolic function is normal. * The right ventricle is normal in size and function. * The right ventricular systolic function is normal as assessed by tricuspid annular plane systolic excursion (TAPSE) (normal >1.5 cm). * Normal size IVC with abnormal collapse * Grade I diastolic dysfunction, (abnormal relaxation pattern). Procedure Details * A complete two-dimensional transthoracic echocardiogram was performed (2D, M-mode, Doppler and color flow Doppler). Left Ventricle * The left ventricle is normal in size. * There is normal left ventricular wall thickness. * Ejection Fraction = 60-65%. * Left ventricular systolic function is normal. * The left ventricular wall motion is normal. Right Ventricle * The right ventricle is normal in size and function. * The right ventricular systolic function is normal as assessed by tricuspid annular plane systolic excursion (TAPSE) (normal >1.5 cm). Atria * The left atrial size is normal. * Right atrial size is normal. Mitral Valve * The mitral valve is grossly normal. * There is trace mitral regurgitation. Tricuspid Valve * The tricuspid valve is not well visualized, but is grossly normal. * There is trace tricuspid regurgitation. Aortic Valve * The aortic valve is trileaflet. Pulmonic Valve * The pulmonic valve is not well seen, but is grossly normal. * Trace pulmonic valvular regurgitation. Great Vessels * The aortic root is normal size. Pericardium/Pleural * There is no pericardial effusion. Great Vessels * Normal size IVC with abnormal collapse Left Ventricular Diastolic Function * Grade I diastolic dysfunction, (abnormal relaxation pattern). * Normal E to e' ratio MMode 2D Measurements and Calculations IVSd 1.0 cm LVIDd 4.1 cm LVIDs 2.7 cm LVPWd 0.80 cm IVS/LVPW 1.3 FS 33.4 % EDV(Teich) 74.7 ml ESV(Teich) 28.0 ml EF(Teich) 62.6 % EDV(cubed) 69.5 ml ESV(cubed) 20.5 ml EF(cubed) 70.5 % LV mass(C)d 114.3 grams LV mass(C)dI 75.9 grams/m\S\2 CO(Teich) 2.9 l/min CI(Teich) 1.9 l/min/m\S\2 SV(Teich) 46.8 ml SI(Teich) 31.1 ml/m\S\2 CO(cubed) 3.0 l/min CI(cubed) 2.0 l/min/m\S\2 SV(cubed) 49.0 ml SI(cubed) 32.5 ml/m\S\2 Ao root diam 3.3 cm Ao root area 8.3 cm\S\2 ACS 2.1 cm LA dimension 3.1 cm LA/Ao 0.95 LVOT diam 2.0 cm LVOT area 3.0 cm\S\2 LVAd ap4 20.7 cm\S\2 LVLd ap4 7.2 cm EDV(MOD-sp4) 52.1 ml LVAs ap4 10.9 cm\S\2 LVLs ap4 5.7 cm ESV(MOD-sp4) 18.3 ml EF(MOD-sp4) 64.9 % LVAd ap2 21.4 cm\S\2 LVLd ap2 7.3 cm EDV(MOD-sp2) 52.4 ml LVAs ap2 11.3 cm\S\2 LVLs ap2 5.8 cm ESV(MOD-sp2) 18.7 ml EF(MOD-sp2) 64.3 % CO(MOD-sp4) 2.1 l/min CI(MOD-sp4) 1.4 l/min/m\S\2 SV(MOD-sp4) 33.8 ml SI(MOD-sp4) 22.5 ml/m\S\2 CO(MOD-sp2) 2.1 l/min CI(MOD-sp2) 1.4 l/min/m\S\2 SV(MOD-sp2) 33.7 ml SI(MOD-sp2) 22.4 ml/m\S\2 Doppler Measurements and Calculations MV E max catarino 62.1 cm/sec MV A max catarino 76.2 cm/sec MV E/A 0.82 MV dec time 0.24 sec Ao V2 max 91.5 cm/sec Ao max PG 3.4 mmHg Ao max PG (full) 1.4 mmHg SRAVANTHI(V,A) 2.3 cm\S\2 SRAVANTHI(V,D) 2.3 cm\S\2 LV V1 max PG 1.9 mmHg LV V1 max 69.4 cm/sec PA V2 max 86.9 cm/sec PA max PG 3.0 mmHg PA acc slope 1209.2 cm/sec\S\2 PA acc time 0.06 sec PI max catarino 205.0 cm/sec PI max PG 16.8 mmHg PI dec slope 120.3 cm/sec\S\2 PI P1/2t 499.1 msec TR max catarino 286.4 cm/sec PA pr(Accel) 50.5 mmHg
[2016-07-28 15:58] LABS: CKMB/CK RATIO 0.9 (0-3.0)
--- NOTE | 2016-07-28 17:12 | CARDIOLOGY CONSULTATION ---
DATE OF CONSULTATION: 07/28/2016 REQUESTING: Dr. Plunkett. BUSINESS INTELLIGENCE DEVELOPER: Efrain Mata D.O, [facility] Cardiology. REASON FOR CONSULTATION: Chest discomfort. Dear Dr. Plunkett: Thank you for requesting cardiology consultation on Odalis with regards to her chest discomfort. As you know, she is a pleasant 65-year-old female with a history of gastric cancer status post gastrectomy. She underwent EGD by Dr. Kee on Saturday of this week with removal of smith. She notes she has chronic epigastric discomfort and burning. It has been worse over the last couple of weeks and seems to be worse after the EGD. Yesterday afternoon, she had sudden onset of chest pressure, it was worse with a deep breath. She was not diaphoretic. It did radiate to her left shoulder, not down her arm. She had no palpitations with it. It improved but did not completely resolve and because of the pressure, she called 911. She was given nitroglycerin with improvement in her symptoms. She again notes last night while in the hospital, she had some recurrence of this discomfort, again relieved by nitroglycerin. This morning she still has significant epigastric discomfort. She has significant belching. The chest pressure has gone and resolved. All of her EKGs were reviewed with them. She appears to be in sinus rhythm with a normal EKG. Her troponins are negative at this point. She notes even with the epigastric discomfort as an outpatient, she is able to walk a block and a half to the mailbox without any issues. She denies any chest pain or chest pressure with activity before this episode. She denies any PND, orthopnea, although she sleeps in a recliner due to her COPD, noting she just cannot lay flat with her emphysema. She denies any bleeding, bruising, dark stools, black stools, cough, productive sputum. She has some joint aches. The rest of complete review of systems is otherwise negative. PAST MEDICAL HISTORY: 1. Stomach cancer, status post gastrectomy. 2. Recent EGD, status post removal of smith. 3. Emphysema. 4. History of pneumonia. 5. History of tobacco abuse, abstaining since 2006. FAMILY HISTORY: Positive for cancer and lung disease. SOCIAL HISTORY: She stopped smoking in 2006. She denies any alcohol. She is . She lives with her family. ALLERGIES: DILTIAZEM. OUTPATIENT MEDICATIONS: Reviewed in detail. PHYSICAL EXAMINATION: GENERAL: She is awake, alert, oriented x3. She does have epigastric discomfort, but she seems comfortable. She has no further chest discomfort. VITAL SIGNS: Heart rate is 66, respirations 18, blood pressure 134/77, sats 92% on room air. HEENT: 2+ carotid upstrokes, no evidence of carotid bruits. Jugular venous pressure appeared normal. Sclera is anicteric. Her hearing is normal. LUNGS: Markedly decreased breath sounds bilaterally. No rales, rhonchi or wheezing. HEART: Regular rate and rhythm. No appreciable murmurs, rubs or gallops. ABDOMEN: Soft. She has epigastric tenderness which is rather significant. She has increased bowel sounds and she has significant amount of belching, just pressing on her belly. LOWER EXTREMITIES. No clubbing, cyanosis or edema. PSYCHIATRIC: Affect appeared appropriate. DIAGNOSTIC STUDIES: EKG is as discussed above. CT of her chest, no evidence of pulmonary embolism. Her lungs are clear, moderate emphysematous changes, no evidence of acute air in her chest. LABORATORY STUDIES: Hemoglobin 12.3, platelet count of 228. BMP is normal. Her troponins are negative. TSH is normal. IMPRESSION: Likely noncardiac chest pain, possibly related to esophageal spasm, given her significant epigastric discomfort, acid reflux and significant belching. As I discussed with her, her EKG is normal. Her troponins are negative, which would suggest she has not had an event within the last 10-14 days. Her troponin drawn this morning is more than 6 hours from her initial episode yesterday afternoon. At this point, I would recommend aggressively treating her GI symptoms. Her CAT scan does not reveal pulmonary embolism or any thoracic abnormality. We will see her on an as needed basis. LAINA
[2016-07-28] MEDS: ONDANSETRON INJ 2 MG/ML 2 ML VIAL IV PRN ×2 (17:47→21:59)
--- NOTE | 2016-07-28 18:37 | Hospitalist Progress Note ---
Hospitalist Progress Note Date of Service Jul 28, 2016. Subjective patient with atypical chest pain with epigastic pain Medications Medications (Trade) Dose Ordered Sig/Brandi Route Start Time Stop Time Status Last Admin Dose Admin Fentanyl Citrate (Fentanyl Inj) 50 mcg Q15M PRN IV 07/27/16 18:45 07/28/16 01:29 DC 07/27/16 23:06 50 MCG Ondansetron HCl 4 mg 4 mg NOW STAT IV 07/27/16 18:36 07/27/16 18:37 DC 07/27/16 19:01 4 MG Potassium Chloride/Sodium Chloride (Nss + 20meq KCl 1000ml) 1,000 ml @ 75 mls/hr [id number] IV 07/28/16 01:45 08/27/16 01:44 07/28/16 14:25 75 MLS/HR Nitroglycerin (Nitrostat Tab) 0.4 mg UD PRN SL 07/27/16 23:15 08/26/16 23:14 07/28/16 03:09 0.4 MG Ondansetron HCl (Zofran Inj) 4 mg Q6H PRN IV 07/27/16 23:15 08/26/16 23:14 07/28/16 17:47 4 MG Pantoprazole Sodium (Protonix Tab) 40 mg QAM PO 07/28/16 09:00 08/27/16 08:59 07/28/16 08:07 40 MG Sucralfate (Carafate Susp) 1 gm QID PO 07/28/16 09:00 08/27/16 08:59 07/28/16 17:03 1 GM Famotidine (Pepcid Tab) 20 mg NOW STAT PO 07/27/16 23:41 07/27/16 23:42 DC 07/27/16 23:41 20 MG Polyethylene (Miralax Powder Packet) 17 gm NOW STAT PO 07/27/16 23:42 07/27/16 23:43 DC 07/27/16 23:42 17 GM Paroxetine HCl (pAXil TAB) 20 mg QAM PO 07/28/16 09:00 08/27/16 08:59 07/28/16 08:07 20 MG Morphine Sulfate (MoRPHine SULFATE INJ) 2 mg Q2H PRN IV 07/27/16 23:30 08/10/16 23:29 07/28/16 12:18 2 MG Morphine Sulfate (MoRPHine SULFATE INJ) 4 mg Q2H PRN IV 07/27/16 23:30 08/10/16 23:29 07/28/16 16:56 4 MG Objective Vital Signs Date Time Temp Pulse Resp B/P Pulse Ox O2 Delivery O2 Flow Rate FiO2 07/28/16 16:00 96 Room Air 07/28/16 15:10 36.8 72 18 154/87 95 Room Air 07/28/16 12:00 96 Room Air 07/28/16 11:44 36.5 66 18 134/77 92 Room Air 07/28/16 08:00 96 Room Air 07/28/16 07:56 36.5 63 16 126/78 96 Room Air 07/28/16 03:43 36.7 66 18 105/67 91 Room Air 07/28/16 00:25 69 16 121/76 99 Room Air 07/28/16 00:10 36.7 18 105/67 Room Air 07/27/16 23:16 67 07/27/16 22:27 80 16 133/80 97 Room Air 07/27/16 20:20 73 16 127/72 96 Room Air 07/27/16 19:35 70 Physical Exam General Appearance: no apparent distress ENT: hearing grossly normal Neck: supple, trachea midline Respiratory/Chest: lungs clear Cardiovascular: regular rate, rhythm, no edema Abdomen: normal bowel sounds, soft Extremities: non-tender, no pedal edema Neurologic/Psychiatric: alert Laboratory Results Last 24 Hours Test 07/27/16 19:05 07/27/16 23:12 07/28/16 07:18 07/28/16 15:27 Urine Color DK YELLOW Urine Appearance CLEAR Urine pH 5.5 Urine Specific [place] 1.029 Urine Protein NEG Urine Glucose (UA) NEG Urine Ketones NEG Urine Occult Blood NEG Urine Nitrite NEG Urine Bilirubin NEG Urine Urobilinogen NEG Urine Leukocyte Esterase NEG Creatine Kinase MB Ratio 0.6 0.9 White Blood Count 5.43 K/uL Red Blood Count 4.09 M/uL Hemoglobin 12.3 g/dL Hematocrit 37.6 % Mean Corpuscular Volume 91.9 fL Mean Corpuscular Hemoglobin 30.1 pg Mean Corpuscular Hemoglobin Concent 32.7 g/dl Platelet Count 228 K/uL Mean Platelet Volume 9.9 fL Neutrophils (%) (Auto) 41.2 % Lymphocytes (%) (Auto) 47.9 % Monocytes (%) (Auto) 7.2 % Eosinophils (%) (Auto) 2.9 % Basophils (%) (Auto) 0.6 % Neutrophils # (Auto) 2.24 K/uL Lymphocytes # (Auto) 2.60 K/uL Monocytes # (Auto) 0.39 K/uL Eosinophils # (Auto) 0.16 K/uL Basophils # (Auto) 0.03 K/uL RDW Standard Deviation 46.6 fL RDW Coefficient of Variation 13.8 % Immature Granulocyte % (Auto) 0.2 % Immature Granulocyte # (Auto) 0.01 K/uL Sodium Level 143 mmol/L Potassium Level 4.5 mmol/L Chloride Level 109 mmol/L Carbon Dioxide Level 30 mmol/L Anion Gap 4.0 mmol/L Blood Urea Nitrogen 12 mg/dl Creatinine 0.64 mg/dl Est Creatinine Clear Calc Drug Dose 71.2 ml/min Estimated GFR () 110.1 Estimated GFR (Non- 95.0 BUN/Creatinine Ratio 18.3 Random Glucose 80 mg/dl Calcium Level 8.6 mg/dl Magnesium Level 2.1 mg/dl Total Creatine Kinase 95 U/L 111 U/L Creatine Kinase MB 0.6 ng/ml 1.0 ng/ml Troponin I < 0.015 ng/ml < 0.015 ng/ml Chemistry Specimen Hemolysis Assessment and Plan (1) Substernal chest pain Assessment & Plan: Will ask Cardiolgy to see because of risk factors of age, prior smoking. (2) History of gastrectomy Assessment & Plan: patient's symptoms are mostly epigastic, will use symptomatic meds. S/p edg last week.
[2016-07-28] MEDS ORDERED: FAMOTIDINE 20 MG TAB PO SCH (21:00)
[2016-07-29] MEDS: MoRPHine SULFATE 2 MG/ML CARP IV PRN ×5 (01:04→11:47)
[2016-07-29 04:00] VITALS: BP 107/69; PULSE 69; TEMP 36.9; O2SAT 93
[2016-07-29] MEDS: NSS + 20MEQ KCL 1000ML 1,000 ML IV SCH ×2 (04:05→18:23)
[2016-07-29 07:04] LABS: BASO % 0.6 %; BASO ABS # 0.03 K/uL (0-0.2); COMPLETE YES; EOS % 4.2 %; HEMATOCRIT 36.1 % (37-47); IG% 0.2 %; LYMPH % 35.5 %; LYMPH ABS # 1.87 K/uL (1.2-3.4); MEAN CELL VOLUME 92.1 fL (80-100); MEAN CORPUSCULAR HEMOGLOBIN 29.6 pg (25-34); MEAN CORPUSCULAR HGB CONC 32.1 g/dl (32-36); MEAN PLATELET VOLUME 9.5 fL (7.4-10.4); MONO % 6.6 %; NEUT % 52.9 %; PLATELET COUNT 217 K/uL (130-400); RED BLOOD COUNT 3.92 M/uL (4.2-5.4); WHITE BLOOD COUNT 5.27 K/uL (4.8-10.8)
[2016-07-29 07:23] VITALS: BP 99/53; PULSE 72; TEMP 36.6; O2SAT 94
[2016-07-29 07:43] LABS: BUN/CREATININE RATIO 9.8 (10-20); CALCIUM 8.5 mg/dl (8.5-10.1); CREATININE 0.65 mg/dl (0.60-1.20); MAGNESIUM 1.9 mg/dl (1.8-2.4); POTASSIUM 4.1 mmol/L (3.5-5.1)
[2016-07-29 08:00] VITALS: O2SAT 96
[2016-07-29] MEDS: DULERA~ORDER AWAITING ACTION SCH ×3 (08:00→16:00)
[2016-07-29] MEDS: SUCRALFATE 1 GM/10 ML UDC PO SCH ×2 (09:00→12:24)
[2016-07-29] MEDS: POLYETHYLENE (MIRALAX) 17 GM PACK PO SCH (09:01)
[2016-07-29] MEDS: PANTOprazole SOD 40 MG TAB PO SCH (09:01)
[2016-07-29] MEDS: PAROXETINE 20 MG TAB PO SCH (09:02)
[2016-07-29 11:50] VITALS: BP 108/64; PULSE 80; TEMP 36.8; O2SAT 91
[2016-07-29] MEDS ORDERED: ALUM HYDROX/MAG TRISILICATE CHEW PO PRN (14:45)
[2016-07-29 15:29] VITALS: BP 112/70; PULSE 71; TEMP 36.9; O2SAT 90
--- NOTE | 2016-07-29 16:44 | Gastrointestinal Consultation ---
Gastrointestinal Consultation Date of Consultation: Jul 29, 2016 Attending Physician: Bhavna Consulting Physician: mariza Reason for Consultation: epigastric pain History of Present Illness Patient is a 65 year old female who presented with a chest pressure + pain. This pain has been worked out from a cardiac stand point. In addition she has an epigastric pain that is chronic and now constant ache in the epigastrium. Unrelated eating or drinking. No burning character. Patient has little to no stomach, s/p surgery for gastric cancer per patient. I do not have the operative report. No effect with PPI therapy or carafate. Patient is on small multiple meals and still experiences reflux. All prior workup is negative including multiple EGD. Last one showed some smith that were removed. No ulcers described. Prior esoph swallow normal. Recent LFTs normal. Past Medical/Surgical History Medical Problems: (1) Substernal chest pain Status: Acute (1) Asthma Status: Chronic (2) blood clot (knee, chest) Status: Resolved (3) Bronchitis Status: Resolved (4) emphysema Status: Chronic (5) History of gastrectomy Status: Resolved (6) Pneumonia Status: Resolved (7) Skin problems Status: Chronic (8) Stomach cancer Status: Resolved (9) Stomach problems Status: Chronic Surgical Problems: (1) Hx of hysterectomy Status: Resolved Family History FHx: cancer FHx: lung disease Social History Smoking Status: Former Smoker Alcohol Use: none Drug Use: none Marital Status: Housing Status: lives with significant other Occupation Status: employed Allergies Coded Allergies: Diltiazem (Verified Allergy, Mild, RASH, 07/27/16) Current Medications Home Meds and Scripts Medications Dose Route/Sig Max Daily Dose Days Date Category Vitamin D 34751 Unit (Ergocalciferol) 50,000 Unit Cap 50,000 Unit PO WK 07/20/16 Reported Paxil (Paroxetine HCl) 20 Mg Tab 20 Mg PO QAM 07/20/16 Reported Prilosec (Omeprazole) 20 Mg Capcr 20 Mg PO QAM 09/14/15 Reported Duoneb (Ipratropium-Albuterol) 3 Ml Nebu 1 Treatment INH Q4H PRN 08/31/15 Reported Miralax (Polyethylene Glycol 3350) 1 Pow Pow 17 Gm PO HS 08/31/15 Reported Dulera 100/5 Mcg (Mometasone Furoate-Formoterol) 1 Aer Aer 2 Puffs INH BID 08/28/13 Reported Review of Systems Respiratory: + shortness of breath Cardiac: No edema Abdomen: + pain, No GI bleeding, No diarrhea, No dysphagia, No odynophagia, No vomiting Skin: No rash Physical Exam Date Time Temp Pulse Resp B/P Pulse Ox O2 Delivery O2 Flow Rate FiO2 07/29/16 15:29 36.9 71 20 112/70 90 07/29/16 12:00 Room Air 07/29/16 11:50 36.8 80 20 108/64 91 Room Air 07/29/16 08:00 96 Room Air 07/29/16 07:23 36.6 72 18 99/53 94 Room Air 07/29/16 04:10 Room Air 07/29/16 04:00 36.9 69 18 107/69 93 Nasal Cannula 07/29/16 00:05 Room Air 07/28/16 23:14 36.8 67 18 125/78 90 Room Air 07/28/16 20:05 Room Air 07/28/16 19:32 36.9 71 20 135/83 90 Room Air General Appearance: no apparent distress, + mild distress ENT: pharynx normal Neck: no adenopathy Abdomen: soft, no organomegaly, no pulsatile mass, + tenderness (Very superficial tenderness, highly localized to the top end of the scar, not better with a [place] test.) Extremities: normal inspection, no pedal edema Neurologic/Psych: alert ( Mildy anxious) Some distress from her COPD. Laboratory Results Last 24 Hours Test 07/29/16 06:43 White Blood Count 5.27 K/uL Red Blood Count 3.92 M/uL Hemoglobin 11.6 g/dL Hematocrit 36.1 % Mean Corpuscular Volume 92.1 fL Mean Corpuscular Hemoglobin 29.6 pg Mean Corpuscular Hemoglobin Concent 32.1 g/dl Platelet Count 217 K/uL Mean Platelet Volume 9.5 fL Neutrophils (%) (Auto) 52.9 % Lymphocytes (%) (Auto) 35.5 % Monocytes (%) (Auto) 6.6 % Eosinophils (%) (Auto) 4.2 % Basophils (%) (Auto) 0.6 % Neutrophils # (Auto) 2.79 K/uL Lymphocytes # (Auto) 1.87 K/uL Monocytes # (Auto) 0.35 K/uL Eosinophils # (Auto) 0.22 K/uL Basophils # (Auto) 0.03 K/uL RDW Standard Deviation 45.7 fL RDW Coefficient of Variation 13.6 % Immature Granulocyte % (Auto) 0.2 % Immature Granulocyte # (Auto) 0.01 K/uL Sodium Level 141 mmol/L Potassium Level 4.1 mmol/L Chloride Level 106 mmol/L Carbon Dioxide Level 30 mmol/L Anion Gap 5.0 mmol/L Blood Urea Nitrogen 6 mg/dl Creatinine 0.65 mg/dl Est Creatinine Clear Calc Drug Dose 70.1 ml/min Estimated GFR () 109.5 Estimated GFR (Non- 94.5 BUN/Creatinine Ratio 9.8 Random Glucose 101 mg/dl Calcium Level 8.5 mg/dl Magnesium Level 1.9 mg/dl Impression Patient is a 65 year old female with epigastric pain, constant in nature at present. It is very localized and superficial. This is likely scar pain. Plan Recc: No additional work up now. local application of lidoderm patch. Ultram for rosenthal control Pain clinic consult. Ok for out pt care from my stand point. If spastic pain recurs esophageal manometry may be considered. Treatment aimed at control of acid is futile if she had a total gastrectomy. Stop prilosec to verify if it is doing anything at all. Discussed with Dr. Huggins
[2016-07-29] MEDS ORDERED: LIDODERM (LIDOCAINE) PATCH 5% TD ONE (16:46)
[2016-07-29] MEDS ORDERED: TRAMADOL HCL 50 MG TAB PO PRN (17:00)
[2016-07-29] MEDS ORDERED: LDDP5 TD (17:32)
[2016-07-29] MEDS ORDERED: ULT50X PO (17:32)
--- NOTE | 2016-07-29 17:37 | Discharge Instructions ---
Discharge Instructions Date of Service Jul 29, 2016. Admission Reason for Admission: Chest Pressure, Epigastric Pain Discharge Discharge Diagnosis / Problem: Atypical chest pain Discharge Goals Goal(s): Decrease discomfort Activity Recommendations Activity Limitations: resume your previous activity . Instructions / Follow-Up Instructions / Follow-Up Primary care physician 1 week Recommend Stress testing for atypical chest pain. Gastroenterology 1-2 weeks Pain management Current Hospital Diet Patient's current hospital diet: AHA Diet (Heart Healthy) Discharge Diet Recommended Diet: Regular Diet Pending Studies Studies pending at discharge: no Laboratory Results Hemoglobin A1c Test 06/19/16 09:42 Range/Units Estimated Average Glucose 111 mg/dl Hemoglobin A1c 5.5 4.5-5.6 % Lipid Panel Test 06/19/16 09:42 Range/Units Triglycerides Level 79 0-150 mg/dl Cholesterol Level 226 H 0-200 mg/dl HDL Cholesterol 80 mg/dl Cholesterol/HDL Ratio 2.8 LDL Cholesterol, Calculated 130 mg/dl Medical Emergencies . Who to Call and When: Medical Emergencies: If at any time you feel your situation is an emergency, please call 911 immediately. . Non-Emergent Contact Non-Emergency issues call your: Primary Care Provider . Past History Medical & Surgical History: (1) Epigastric pain (2) Chest pressure (3) History of gastrectomy . "Provider Documentation" section prepared by Joseph Huggins. VTE Core Measure Inpt VTE Proph given/why not?: SCD's
[2016-07-29 17:58] VITALS: BP 112/70; PULSE 71; TEMP 36.9; O2SAT 90
[2016-07-30] MEDS ORDERED: LIDODERM (LIDOCAINE) PATCH 5% TD SCH (09:00)
[2016-08-04] MEDS ORDERED: ERGOCALCIFEROL 50,000 INTER.UNIT CAP PO SCH (09:00)
--- NOTE | 2016-08-06 15:10 | DISCHARGE SUMMARY ---
Please see dictated H\T\P for full details of presentation. The patient is a 65-year-old with history of gastric cancer, status post gastrectomy who presented with some epigastric burning and then on the date of presentation, felt like an elephant was sitting on her chest, which prompted her to come to the Emergency Room. Cardiac markers were within normal limits. Echocardiogram was performed, showed an EF of 60-65%. She was seen in consultation by Dr. Mata for cardiology, Dr. Weaver for gastroenterology. Dr. Mata felt her symptoms were atypical for heart disease. Based upon her significant GI symptoms, recommended aggressively treating her GI symptoms. He recommended cardiac followup on an as needed basis. Dr. Weaver saw her and recommended stopping Prilosec and Ultram for pain control, Lidoderm patch. No additional workup and pain clinic consult. [place] that the epigastric pain was very localized and superficial, likely scar pain and recommended that patient follow up with her primary care doctor and gastroenterology and pain clinic as discussed and pursue outpatient cardiac stress testing. Please note she does have risk factors for heart disease. Time spent in review of the chart, discussion with the patient on the date of discharge was 35 minutes.
== END 2016-07-29 18:45 | disposition home or self-care (01) ==
LOC: ENRESERVTM → ENRESERVDT → EDBD 18:23 → C.EDB 18:24 → C.MED 23:21
PROVIDERS: ADMIT Hospitalist; ATTEND Hospitalist
DX: R07.89 Other chest pain (principal); R10.13 Epigastric pain; Z90.3 Acquired absence of stomach [part of]; Z87.01 Personal history of pneumonia (recurrent); Z85.028 Personal history of other malignant neoplasm of stomach; Z90.710 Acquired absence of both cervix and uterus; Z83.6 Family history of other diseases of the respiratory system; Z87.891 Personal history of nicotine dependence; F32.9 Major depressive disorder, single episode, unspecified; J43.9 Emphysema, unspecified

== ENCOUNTER 2016-08-22 09:31 | Emergency (ER) | payer BC ==
[~2016-08-22] VITALS: Ht 157.5 cm; Wt 51.2 kg
[~2016-08-22 09:31] MED LIST changes: +LDDP5 TD; -MULT-506 PO; -PRLSR20 PO; +ULT50X PO
[2016-08-22 09:47] VITALS: TEMP 36.4; Ht 157.5 cm; Wt 51.2 kg
[2016-08-22] MEDS ORDERED: MoRPHine SULFATE 4 MG/ML 1 ML CARP\\VIAL IV STA (10:16)
[2016-08-22] MEDS ORDERED: SODIUM CHLORIDE 0.9% 1000ML 1,000 ML IV STA (10:16)
[2016-08-22] MEDS ORDERED: SODIUM CHLORIDE 0.9% 1000ML 250 ML IV STA (10:16)
[2016-08-22] MEDS ORDERED: ONDANSETRON INJ 2 MG/ML 2 ML VIAL IV STA ×2 (10:16→11:10)
--- NOTE | 2016-08-22 10:25 | EMERGENCY ROOM VISIT NOTE ---
History Report prepared by Sixto: Crista Fernandez Under the Supervision of: Dr. Joseph Palacios M.D. First contact with patient: 10:07 Chief Complaint: ABDOMINAL PAIN Stated Complaint: SEVERE ABD. PAIN Nursing Triage Summary: Abdominal pain, hard/dry cough. Pt states she had stomach cancer and had her stomach removed, her esophagus is attached to small intestine (this was 9 [address] ago). [address] Kee's nurse and was told to come to the ER. History of Present Illness The patient is a 65 year old female who presents to the Emergency Room with complaints of persistent epigastric abdominal pain that began yesterday. She currently rates her discomfort as a 10/10 in severity. The patient states that she has a history of a gastrectomy nine years ago. She states that she additionally has a history of a cholecystectomy and appendectomy. The patient states that she had an endoscopy in June and had the last remaining smith removed. She notes that there was some irritation, but her doctor did not see anything else. The patient states that a couple weeks ago she was evaluated in the hospital after developing chest pain. She states that everything came back normal so she has been being worked up for problems with her esophagus. The patient states that her pain began last evening and additionally associates nausea with her symptoms. She states that the pain radiates into her back. The patient states that she tried taking Tylenol for her symptoms without relief. She states that her pain worsened this morning. The patient states that her pain is worsened with deep breathing. She additionally notes a persistent cough. The patient reports normal bowel movements. Source of History: patient Onset: yesterday Position: abdomen (epigastric) Symptom Intensity: 10/10 Timing: worsening, other (persistent) Modifying Factors (Worsening): breathing (deep) Associated Symptoms: + cough, + nausea Review of Systems See HPI for pertinent positives & negatives. A total of 10 systems reviewed and were otherwise negative. Past Medical & Surgical Medical Problems: (1) Asthma (2) blood clot (knee, chest) (3) Bronchitis (4) Chest pressure (5) emphysema (6) Epigastric pain (7) History of gastrectomy (8) Pneumonia (9) Skin problems (10) Stomach cancer (11) Stomach problems Surgical Problems: (1) Hx of hysterectomy Old medical records were reviewed. Nurse's notes were reviewed and I agree with. Family History FHx: cancer FHx: lung disease Social History Smoking Status: Former Smoker Alcohol Use: none Drug Use: none Marital Status: Housing Status: lives with significant other Occupation Status: employed Current/Historical Medications Scheduled Ergocalciferol (Vitamin D 06489 Unit), 50,000 UNIT PO WK Mometasone Furoate-Formoterol (Dulera 100/5 Mcg), 2 PUFFS INH BID Paroxetine (Paxil), 20 MG PO QAM Sucralfate (Carafate), 1 TAB PO QID Scheduled PRN Ipratropium-Albuterol (Duoneb), 1 TREATMENT INH Q4H PRN for SOB/Wheezing Allergies Coded Allergies: Diltiazem (Verified Allergy, Mild, RASH, 07/27/16) Physical Exam Vital Signs Date Time Temp Pulse Resp B/P Pulse Ox O2 Delivery O2 Flow Rate FiO2 08/22/16 13:17 81 18 136/75 94 Room Air 08/22/16 11:00 74 16 154/84 96 Room Air 08/22/16 09:47 36.4 87 18 142/86 94 Room Air Physical Exam General: Well developed well nourished non-ill appearing older female in no acute distress, breathing comfortably on room air. Normal speech HEENT: Normal cephalic atraumatic. Pupils are equal round and reactive to light. Extraocular movements are intact. Oropharynx is pink with moist mucous membranes. No swelling of the mouth lips or tongue. Neck: Supple with a midline trachea. No meningeal signs or stiffness, no JVD or bruits. No Stridor. Chest: Clear to auscultation bilaterally. No wheezes or rhonchi. No increased work of breathing. Heart: regular rate and rhythm. Abdomen: Scar in epigastric area, no redness or warmth, mildly tender. Soft, nondistended without rebound guarding or rigidity. Extremities: No cyanosis clubbing or edema. No calf tenderness or assymetry Spine/Back. Non tender to palpation. No CVA tenderness Skin: Good turgor without rashes. Neurologic exam: Cranial nerves two through 12 are intact. Motor and sensation are intact and symmetrical throughout. Medical Decision & Procedures ER Provider Diagnostic Interpretation: X-ray results as stated below per interpretation by me and the radiologist: CHEST ONE VIEW PORTABLE CLINICAL HISTORY: Chest and abdominal pain COMPARISON STUDY: 07/27/2016 FINDINGS: The chest is emphysematous configuration. No pneumothorax is visualized. There is no focal pulmonary consolidation. There is no failure. There are no pleural effusions. There is a right subclavian A-Port catheter present.[ IMPRESSION: Emphysema. No acute findings. Electronically signed by: Zack Nayak M.D. 08/22/2016 10:45 AM Dictated Date/Time: 08/22/2016 10:44 AM Laboratory Results 08/22/16 10:35 Red Blood Count 4.53, Mean Corpuscular Volume 92.5, Mean Corpuscular Hemoglobin 30.7, Mean Corpuscular Hemoglobin Concent 33.2, Mean Platelet Volume 10.0, Neutrophils (%) (Auto) 50.5, Lymphocytes (%) (Auto) 41.4, Monocytes (%) (Auto) 6.0, Eosinophils (%) (Auto) 1.4, Basophils (%) (Auto) 0.7, Neutrophils # (Auto) 2.87, Lymphocytes # (Auto) 2.35, Monocytes # (Auto) 0.34, Eosinophils # (Auto) 0.08, Basophils # (Auto) 0.04 08/22/16 10:35 Test 08/22/16 10:35 08/22/16 10:43 White Blood Count 5.68 K/uL (4.8-10.8) Red Blood Count 4.53 M/uL (4.2-5.4) Hemoglobin 13.9 g/dL (12.0-16.0) Hematocrit 41.9 % (37-47) Mean Corpuscular Volume 92.5 fL (80-100) Mean Corpuscular Hemoglobin 30.7 pg (25-34) Mean Corpuscular Hemoglobin Concent 33.2 g/dl (32-36) Platelet Count 273 K/uL (130-400) Mean Platelet Volume 10.0 fL (7.4-10.4) Neutrophils (%) (Auto) 50.5 % Lymphocytes (%) (Auto) 41.4 % Monocytes (%) (Auto) 6.0 % Eosinophils (%) (Auto) 1.4 % Basophils (%) (Auto) 0.7 % Neutrophils # (Auto) 2.87 K/uL (1.4-6.5) Lymphocytes # (Auto) 2.35 K/uL (1.2-3.4) Monocytes # (Auto) 0.34 K/uL (0.11-0.59) Eosinophils # (Auto) 0.08 K/uL (0-0.5) Basophils # (Auto) 0.04 K/uL (0-0.2) RDW Standard Deviation 46.0 fL (36.4-46.3) RDW Coefficient of Variation 13.5 % (11.5-14.5) Immature Granulocyte % (Auto) 0.0 % Immature Granulocyte # (Auto) 0.00 K/uL (0.00-0.02) Anion Gap 6.0 mmol/L (3-11) Est Creatinine Clear Calc Drug Dose 66.0 ml/min Estimated GFR () 107.4 Estimated GFR (Non- 92.6 BUN/Creatinine Ratio 21.4 (10-20) Calcium Level 9.1 mg/dl (8.5-10.1) Total Bilirubin 0.5 mg/dl (0.2-1) Direct Bilirubin 0.1 mg/dl (0-0.2) Aspartate Amino Transf (AST/SGOT) 23 U/L (15-37) Alanine Aminotransferase (ALT/SGPT) 22 U/L (12-78) Alkaline Phosphatase 78 U/L (45-117) Total Protein 7.2 gm/dl (6.4-8.2) Albumin 4.1 gm/dl (3.4-5.0) Lipase 114 U/L (73-393) Bedside D-Dimer 398 ng/mlFEU (0-450) Bedside Troponin I 0.020 ng/ml (0-0.045) Laboratory studies as stated above per my review. Medications Administered Medications (Trade) Dose Ordered Sig/Brandi Route Start Time Stop Time Status Last Admin Dose Admin Morphine Sulfate (MoRPHine SULFATE INJ) 4 mg NOW STAT IV 08/22/16 10:08/22/16 10:18 DC 08/22/16 10:52 4 MG Ondansetron HCl 4 mg 4 mg NOW STAT IV 08/22/16 10:16 08/22/16 10:18 DC 08/22/16 10:52 4 MG Sodium Chloride 250 ml @ 999 mls/hr Q16M STAT IV 08/22/16 10:16 08/22/16 10:31 DC 08/22/16 10:53 999 MLS/HR Sodium Chloride (Nss 1000ml) 1,000 ml @ 100 mls/hr Q10H STAT IV 08/22/16 10:16 08/22/16 13:52 DC 08/22/16 10:16 100 MLS/HR Al Hydroxide/Mg Hydroxide (Maalox Susp) 30 ml NOW STAT PO 08/22/16 12:07 08/22/16 12:08 DC 08/22/16 12:07 30 ML Lidocaine HCl (Viscous Lidocaine 2% Soln) 10 ml NOW STAT MT 08/22/16 12:07 08/22/16 12:08 DC 08/22/16 12:07 10 ML ECG Indication: abdominal pain Rate (beats per minute): 72 Rhythm: normal sinus Findings: no acute ischemic change, no ectopy Comparison ECG Date: 07/29/16 Change: no significant change ED Course 1009: Past medical records reviewed. The patient was evaluated in room B4B, and a complete history and physical examination were performed. 1016: Ordered Sodium Chloride 1000 ml @ 100 mls/hr IV, Sodium Chloride 250 ml @ 999 mls/hr IV, Zofran Inj 4 mg IV, Morphine Sulfate 4 mg IV. 1110: Ordered Zofran Inj 4 mg IV. 1207: I reevaluated the patient and she is resting comfortably. I discussed the exam findings with her. We are going to consult GI. Ordered Lidocaine HCl 10 ml MT, Maalox Susp 30 ml PO. 1223: I discussed the patients case with Honey Castellanos, Gastroenterology PUBLIC HEALTH INSPECTOR. She said that the patient can be followed up as an outpatient and that she should be placed on Carafate. 1253: I reevaluated the patient and she is feeling better. I discussed the exam findings with her and I discussed the treatment plan. She verbalized complete understanding and agreement. She is ready to go home. Medical Decision Differentials include, but are not limited to; hernia, infection, electrolyte or metabolic abnormality, cardic disease, PE. This patient comes in as described above she's had some chronic epigastric pain after having stomach surgery got worse after coughing on exam she has mild tenderness but no peritonitis is no redness or warmth or hernia felt. Multiple blood testing was obtained she was given IV morphine and IV Zofran seem comfortable. Chest x-ray does not show any acute findings. There is nothing to suggest congestive heart failure, pneumonia, or pneumothorax. EKG was unremarkable. She has nothing to suggest an acute cardiac event. There is nothing to suggest PE and her d-dimer is within normal limits. She has no acute electrolyte or metabolic abnormalities and nothing to suggest pancreatitis. She was given a GI cocktail. She does feel well and would like to go home. I discussed the possibility of doing a CT. she's had multiple CAT scans and would like to avoid this. At this point I do not think it would likely changeover operator. I did discuss the case with Dr. Kee's PA, who recommended starting her on Carafate. They will follow-up with her in the office next 1-2 days. The patient was encouraged to return to ER if : increasing pain, worsening of symptoms, any new problems or concerns. Consults Time Called: 1213 Consulting Physician: Natali Latham Returned Call: 1223 I discussed the patients case with Natali Latham. She said that the patient can be followed up as an outpatient and that she should be placed on Carafate. Impression Primary Impression: Epigastric pain Scribe Attestation The scribe's documentation has been prepared under my direction and personally reviewed by me in its entirety. I confirm that the note above accurately reflects all work, treatment, procedures, and medical decision making performed by me. Departure Information Dispostion Home / Self-Care Prescriptions Sucralfate (CARAFATE) 1 Gm Tab 1 TAB PO QID for 15 Days, #60 TAB 1 Refill Prov: Joseph Palacios M.D. 08/22/16 Referrals No Doctor, Assigned (PCP) Forms HOME CARE DOCUMENTATION FORM, IMPORTANT VISIT INFORMATION Patient Instructions My [facility] Additional Instructions Rest. Mild diet. Drink plenty of fluids. Use Carafate 4 times a day. Return if: Increasing pain, fever chills, shortness of breath, worsening symptoms, any new problems or concerns. Follow-up with your doctor/GI specialist the next 1-2 days.
--- NOTE | 2016-08-22 10:47 | DIAGNOSTIC IMAGING REPORT ---
CHEST ONE VIEW PORTABLE CLINICAL HISTORY: Chest and abdominal pain COMPARISON STUDY: 07/27/2016 FINDINGS: The chest is emphysematous configuration. No pneumothorax is visualized. There is no focal pulmonary consolidation. There is no failure. There are no pleural effusions. There is a right subclavian A-Port catheter present.[ IMPRESSION: Emphysema. No acute findings. Electronically signed by: Zack Nayak M.D. 08/22/2016 10:45 AM Dictated Date/Time: 08/22/2016 10:44 AM
[2016-08-22 10:57] LABS: BASO % 0.7 %; BASO ABS # 0.04 K/uL (0-0.2); COMPLETE YES; EOS % 1.4 %; HEMATOCRIT 41.9 % (37-47); LYMPH % 41.4 %; LYMPH ABS # 2.35 K/uL (1.2-3.4); MEAN CELL VOLUME 92.5 fL (80-100); MEAN CORPUSCULAR HEMOGLOBIN 30.7 pg (25-34); MEAN CORPUSCULAR HGB CONC 33.2 g/dl (32-36); NEUT % 50.5 %; PLATELET COUNT 273 K/uL (130-400); RED BLOOD COUNT 4.53 M/uL (4.2-5.4); WHITE BLOOD COUNT 5.68 K/uL (4.8-10.8)
[2016-08-22 11:03] LABS: POINT OF CARE TROPONIN I 0.02 ng/ml (0-0.045)
[2016-08-22 11:17] LABS: BUN/CREATININE RATIO 21.4 (10-20); CALCIUM 9.1 mg/dl (8.5-10.1); CREATININE 0.69 mg/dl (0.60-1.20)
[2016-08-22] MEDS ORDERED: ALUMINUM/MAGNESIUM SUSP 30 ML UDC PO STA (12:07)
[2016-08-22] MEDS ORDERED: LIDOCAINE HCL 2% VISC SOLN 20 ML UDC MT STA (12:07)
[2016-08-22] MEDS ORDERED: SUCR1TAB29 PO (13:04)
[2016-08-22 13:17] VITALS: BP 136/75; PULSE 81; O2SAT 94
== END 2016-08-22 13:18 | disposition home or self-care (01) ==
LOC: C.EDB 09:32
DX: R10.13 Epigastric pain (principal); G89.29 Other chronic pain; Z90.3 Acquired absence of stomach [part of]; Z90.49 Acquired absence of other specified parts of digestive tract; J45.909 Unspecified asthma, uncomplicated; Z87.01 Personal history of pneumonia (recurrent); Z85.028 Personal history of other malignant neoplasm of stomach; Z90.710 Acquired absence of both cervix and uterus; Z80.9 Family history of malignant neoplasm, unspecified; Z79.899 Other long term (current) drug therapy

== ENCOUNTER → 2016-12-31 | Outpatient (CLI) | payer BC ==
[~2016-12-31] MED LIST changes: -LDDP5 TD; -POLY335019 PO; +SUCR1TAB29 PO; -ULT50X PO
[2016-12-31 17:50] LABS: BASO % 0.6 %; BASO ABS # 0.04 K/uL (0-0.2); COMPLETE YES; EOS % 0.9 %; HEMATOCRIT 44.6 % (37-47); IG% 0.5 %; LYMPH % 37.4 %; MEAN CELL VOLUME 93.1 fL (80-100); MEAN CORPUSCULAR HEMOGLOBIN 29.4 pg (25-34); MEAN CORPUSCULAR HGB CONC 31.6 g/dl (32-36); MEAN PLATELET VOLUME 10.4 fL (7.4-10.4); MONO % 6.2 %; NEUT % 54.4 %; PLATELET COUNT 303 K/uL (130-400); RED BLOOD COUNT 4.79 M/uL (4.2-5.4); WHITE BLOOD COUNT 6.42 K/uL (4.8-10.8)
[2016-12-31 18:01] LABS: AMYLASE 57 U/L (25-115); AST/SGOT 25 U/L (15-37); BLOOD UREA NITROGEN 21 mg/dl (7-18); BUN/CREATININE RATIO 26.9 (10-20); CALCIUM 9.5 mg/dl (8.5-10.1); CARBON DIOXIDE 29 mmol/L (21-32); CHLORIDE 104 mmol/L (98-107); CREATININE 0.78 mg/dl (0.60-1.20); GLUCOSE 93 mg/dl (70-99); POTASSIUM 4.2 mmol/L (3.5-5.1); SODIUM 137 mmol/L (136-145)
[2016-12-31 18:12] LABS: ALB/GLOB RATIO 1.2 (0.9-2); ALKALINE PHOSPHATASE 89 U/L (45-117); ALT/SGPT 20 U/L (12-78); THYROID STIMULATING HORMONE 0.909 uIu/ml (0.300-4.500)
== END | disposition home or self-care (01) ==
LOC: C.LABBFT 13:56
PROVIDERS: ATTEND Internal Medicine
DX: R10.13 Epigastric pain (principal); E53.8 Deficiency of other specified B group vitamins; E55.9 Vitamin D deficiency, unspecified; R63.4 Abnormal weight loss

== ENCOUNTER → 2017-01-09 | Outpatient (CLI) | payer BC ==
[~2017-01-09] MED LIST changes: +OPTIRAY 320 IV PRN
--- NOTE | 2017-01-09 15:44 | DIAGNOSTIC IMAGING REPORT ---
ABDOMEN AND PELVIS CT WITH IV AND ORAL CONTRAST CT DOSE: 307.30 mGycm HISTORY: Mid abdominal pain. Stomach cancer. TECHNIQUE: Multiaxial CT images of the abdomen and pelvis were performed following the use of intravenous and oral contrast. A dose lowering technique was utilized adhering to the principles of ALARA. COMPARISON STUDY: Abdomen and pelvis CT 08/30/2015. FINDINGS: Stable 3 mm nodule within the right middle lobe this demonstrates greater than 2 year stability and is considered to be benign. The left lung base is clear. No pneumoperitoneum. No pneumatosis. No suspicious lytic or blastic osseous lesions. Dextroscoliosis of the lumbar spine. Cholecystectomy, hysterectomy, and appendectomy. The liver, spleen, pancreas, and adrenal glands are unremarkable. No retroperitoneal lymphadenopathy. Moderate calcified plaque within the normal caliber abdominal aorta. The kidneys enhance normally. Mild fullness within the bilateral renal collecting systems without yordan hydronephrosis. This is similar to the prior study. The bladder is unremarkable. No bowel wall thickening or obstruction. The stomach is surgically absent. IMPRESSION: 1. Status post gastrectomy. 2. No bowel wall thickening or obstruction. 3. Additional postoperative changes as described above. Electronically signed by: Yared Dukes M.D. 01/09/2017 3:43 PM Dictated Date/Time: 01/09/2017 3:35 PM
== END | disposition home or self-care (01) ==
LOC: C.CTS 14:44
PROVIDERS: ATTEND Internal Medicine
DX: R10.13 Epigastric pain (principal)

== ENCOUNTER 2017-04-19 07:50 | Emergency (ER) | payer BC ==
[~2017-04-19] VITALS: Ht 154.9 cm; Wt 49.4 kg
[~2017-04-19 07:50] MED LIST changes: -OPTIRAY 320 IV PRN
[2017-04-19 07:57] VITALS: Ht 154.9 cm; Wt 49.4 kg
[2017-04-19] MEDS ORDERED: SODIUM CHLORIDE 0.9% 1000ML 1,000 ML IV STA (08:20)
[2017-04-19] MEDS ORDERED: ALBUT/IPRATROP 3MG/0.5MG NEB 3 ML VIAL ONE (08:21)
--- NOTE | 2017-04-19 08:26 | EMERGENCY ROOM VISIT NOTE ---
History Report prepared by Sixto: Vicky Parham Under the Supervision of: Dr. Eric Mancini M.D. First contact with patient: 08:02 Chief Complaint: RESPIRATORY PROBLEMS Stated Complaint: BRONCHITIS Nursing Triage Summary: pt reports noted increased cough and sob since Sat. has neb tx at home and this is helping some but not clearing up completely. today started with sore throat. reports mucus is yellow to green in color History of Present Illness The patient is a 66 year old female who presents to the Emergency Room with complaints of worsening respiratory problems for the past 2 days. She admits to a history of asthma and COPD and is a former smoker. 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 On Saturday, she developed a productive cough with thick, green colored sputum. She began using her nebulizer treatments regularly with minimal relief. Last night, she experienced "burning" pain in her chest and this morning she developed a sore throat. Her chest pain has since resolved. She has not had a BM in 3 days, which is unusual for her as she usually moves her bowels every day. The patient denies any recent fevers, nausea or vomiting. She did receive a flu shot this year. 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 A total of ten systems were reviewed and were otherwise negative. Past Medical & Surgical Medical Problems: (1) Asthma (2) blood clot (knee, chest) (3) Bronchitis (4) Chest pressure (5) emphysema (6) Epigastric pain (7) History of gastrectomy (8) Pneumonia (9) Skin problems (10) Stomach cancer (11) Stomach problems Surgical Problems: (1) Hx of hysterectomy Family History FHx: cancer FHx: lung disease Social History Smoking Status: Never Smoker Alcohol Use: none Drug Use: none Marital Status: Housing Status: lives with significant other Occupation Status: employed Current/Historical Medications Scheduled Azithromycin (Zithromax), 250 MG PO DAILY Ipratropium-Albuterol (Duoneb), 1 TREATMENT INH Q4H Prednisone (Prednisone), 3 TAB PO DAILY Scheduled PRN Ipratropium-Albuterol (Duoneb), 1 TREATMENT INH Q6 PRN for SOB/Wheezing Allergies Coded Allergies: Diltiazem (Verified Allergy, Mild, RASH, 04/19/17) Physical Exam Vital Signs Date Time Temp Pulse Resp B/P (MAP) Pulse Ox O2 Delivery O2 Flow Rate FiO2 04/19/17 14:10 37.1 126 24 107/57 90 04/19/17 13:36 131 25 93 04/19/17 13:31 117/58 04/19/17 13:06 115 22 99 04/19/17 13:03 116 04/19/17 13:01 116/81 04/19/17 12:55 110 18 94 Room Air 04/19/17 12:36 116 93 04/19/17 12:31 112/73 04/19/17 12:06 119 25 91 04/19/17 12:01 130/61 04/19/17 11:50 113 25 92 04/19/17 11:31 98/85 04/19/17 11:20 111 26 91 04/19/17 11:01 123/68 04/19/17 11:00 113 20 123/68 93 Room Air 04/19/17 10:50 111 25 91 04/19/17 10:31 120/58 04/19/17 10:20 110 22 91 04/19/17 10:19 109 04/19/17 10:08 110 18 122/60 94 Room Air 04/19/17 10:01 122/60 04/19/17 09:55 137/53 04/19/17 09:33 94 Room Air 04/19/17 09:20 89 24 100 04/19/17 09:07 84 04/19/17 08:30 90 18 93 Room Air 04/19/17 07:57 37.1 89 18 149/81 95 Room Air Physical Exam GENERAL: Awake, alert, uncomfortable-appearing, in no acute distress HENT: Normocephalic, atraumatic. Oropharynx unremarkable. Dry mucous membranes. EYES: Normal conjunctiva. Sclera non-icteric. NECK: Supple. No nuchal rigidity. FROM. No JVD. RESPIRATORY: Scattered rhonchi and wheezing throughout. CARDIAC: Regular rate, normal rhythm. Extremities warm and well perfused. Pulses equal. ABDOMEN: Soft, non-distended. No tenderness to palpation. No rebound or guarding. No masses. RECTAL: Deferred. MUSCULOSKELETAL: Chest examination reveals no tenderness. The back is symmetrical on inspection without obvious abnormality. There is no CVA tenderness to palpation. No joint edema. LOWER EXTREMITIES: Calves are equal size bilaterally and non-tender. No edema. No discoloration. NEURO: Normal sensorium. No sensory or motor deficits noted. SKIN: No rash or jaundice noted. Medical Decision & Procedures ER Provider Diagnostic Interpretation: Radiology results as stated below per my review and radiologist interpretation: CHEST ONE VIEW PORTABLE CLINICAL HISTORY: Congestion. COMPARISON STUDY: Chest CT July 27, 2016 and chest radiograph August 22, 2016. FINDINGS: A right subclavian [id number] is unchanged in position. There is no pneumothorax or pleural effusion. There is no consolidation. Pulmonary vascularity is normal. Cardiomediastinal silhouette is normal. The appearance of the chest is unchanged. IMPRESSION: No acute cardiopulmonary findings. Electronically signed by: Bolivar Faustin M.D. 04/19/2017 8:35 AM Laboratory Results 04/19/17 08:40 Red Blood Count 4.04, Mean Corpuscular Volume 92.3, Mean Corpuscular Hemoglobin 30.0, Mean Corpuscular Hemoglobin Concent 32.4, Mean Platelet Volume 9.6, Neutrophils (%) (Auto) 73.3, Lymphocytes (%) (Auto) 18.4, Monocytes (%) (Auto) 7.1, Eosinophils (%) (Auto) 0.8, Basophils (%) (Auto) 0.3, Neutrophils # (Auto) 6.99, Lymphocytes # (Auto) 1.76, Monocytes # (Auto) 0.68, Eosinophils # (Auto) 0.08, Basophils # (Auto) 0.03 04/19/17 08:40 Test 04/19/17 08:40 White Blood Count 9.55 K/uL (4.8-10.8) Red Blood Count 4.04 M/uL (4.2-5.4) Hemoglobin 12.1 g/dL (12.0-16.0) Hematocrit 37.3 % (37-47) Mean Corpuscular Volume 92.3 fL (80-100) Mean Corpuscular Hemoglobin 30.0 pg (25-34) Mean Corpuscular Hemoglobin Concent 32.4 g/dl (32-36) Platelet Count 240 K/uL (130-400) Mean Platelet Volume 9.6 fL (7.4-10.4) Neutrophils (%) (Auto) 73.3 % Lymphocytes (%) (Auto) 18.4 % Monocytes (%) (Auto) 7.1 % Eosinophils (%) (Auto) 0.8 % Basophils (%) (Auto) 0.3 % Neutrophils # (Auto) 6.99 K/uL (1.4-6.5) Lymphocytes # (Auto) 1.76 K/uL (1.2-3.4) Monocytes # (Auto) 0.68 K/uL (0.11-0.59) Eosinophils # (Auto) 0.08 K/uL (0-0.5) Basophils # (Auto) 0.03 K/uL (0-0.2) RDW Standard Deviation 44.9 fL (36.4-46.3) RDW Coefficient of Variation 13.4 % (11.5-14.5) Immature Granulocyte % (Auto) 0.1 % Immature Granulocyte # (Auto) 0.01 K/uL (0.00-0.02) Anion Gap 6.0 mmol/L (3-11) Est Creatinine Clear Calc Drug Dose 69.1 ml/min Estimated GFR () 110.4 Estimated GFR (Non- 95.3 BUN/Creatinine Ratio 18.2 (10-20) Calcium Level 8.6 mg/dl (8.5-10.1) Total Bilirubin 0.5 mg/dl (0.2-1) Direct Bilirubin 0.1 mg/dl (0-0.2) Aspartate Amino Transf (AST/SGOT) 16 U/L (15-37) Alanine Aminotransferase (ALT/SGPT) 17 U/L (12-78) Alkaline Phosphatase 69 U/L (45-117) Troponin I < 0.015 ng/ml (0-0.045) Total Protein 6.8 gm/dl (6.4-8.2) Albumin 3.5 gm/dl (3.4-5.0) Lipase 60 U/L (73-393) Laboratory results reviewed by me Medications Administered Medications (Trade) Dose Ordered Sig/Brandi Route Start Time Stop Time Status Last Admin Dose Admin Sodium Chloride 1,000 ml @ 999 mls/hr Q1H1M STAT IV 12/15/17 08:20 04/19/17 09:20 DC 04/19/17 08:20 999 MLS/HR Albuterol/ Ipratropium (Duoneb) 12 ml ONE ONCE INH 04/19/17 08:30 04/19/17 08:31 DC 04/19/17 08:30 12 ML Prednisone (PredniSONE TAB) 60 mg NOW STAT PO 04/19/17 08:20 04/19/17 08:24 DC 04/19/17 08:36 60 MG Azithromycin (Zithromax Tab) 500 mg NOW ONCE PO 04/19/17 08:30 04/19/17 08:31 DC 04/19/17 08:36 500 MG Albuterol/ Ipratropium (Duoneb) 12 ml ONE ONCE INH 04/19/17 12:30 04/19/17 12:31 DC 04/19/17 12:30 12 ML Miscellaneous Medication (Gi Cocktail) 24 ml NOW STAT PO 04/19/17 12:26 04/19/17 12:27 DC 04/19/17 12:26 24 ML Al Hydroxide/Mg Hydroxide (Maalox Susp) 30 ml STK-MED ONCE .ROUTE 04/19/17 12:34 04/19/17 12:35 DC 04/19/17 12:34 30 ML Lidocaine HCl (Viscous Lidocaine 2% Soln) 20 ml STK-MED ONCE .ROUTE 04/19/17 12:35 04/19/17 12:36 DC 04/19/17 12:35 20 ML ECG Indication: SOB/dyspnea Rate (beats per minute): 79 Rhythm: normal sinus Findings: no acute ischemic change, other (normal axis) ED Course 0818: The patient was evaluated in room A4. A complete history and physical exam was performed. 1335: I reevaluated the patient. She is feeling well and resting comfortably. I discussed her results and discharge instructions and she verbalized complete understanding and agreement. Medical Decision I reviewed the patient's past medical history, medications, and the nursing notes as described above. Differential Diagnoses: pneumonia, bronchitis, COPD exacerbation, ACS, CHF and PE. The patient is a 66 y/o woman with a pmhx of asthma/COPD who presents to the ED with cough, congestion, sob with yellow-green sputum production x 2 days per HPI. On arrival the patient is uncomfortable but in NAD, AFVSS. Scattered wheezes and rhonchi on Exam. CXR negative for PNA. Labs unremarkable including wbc and trop wnl. Patient with slight improved after prednisone and hour continuous neb. However, still with tight with wheezes so given 2nd hour of continuous with good effect. Sating > 93% on RA. Patient feeling improved for discharge. Findings and plan for follow-up reviewed with patient. Patient agreeable and d/c'd per discharge instructions. Medication Reconcilliation Current Medication List: was personally reviewed by me Blood Pressure Screening Patient's blood pressure: Normal blood pressure Blood pressure disposition: Did not require urgent referral Impression Primary Impression: COPD exacerbation Scribe Attestation The scribe's documentation has been prepared under my direction and personally reviewed by me in its entirety. I confirm that the note above accurately reflects all work, treatment, procedures, and medical decision making performed by me. Departure Information Dispostion Home / Self-Care Prescriptions Azithromycin (Zithromax) 250 Mg Tab 250 MG PO DAILY, #4 TAB Prov: Eric Mancini M.D. 04/19/17 Ipratropium-Albuterol (DUONEB) 3 Ml Nebu 1 TREATMENT INH Q4H, #30 INHA Prov: Eric Mancini M.D. 04/19/17 Prednisone (Prednisone) 20 Mg Tab 3 TAB PO DAILY for 4 Days, #12 TAB FOR 4 DAYS Prov: Eric Macnini M.D. 04/19/17 Referrals No Doctor, Assigned (PCP) Patient Instructions ED COPD Flare, My [facility] Additional Instructions Please follow up with your primary care physician in the next 1-3 days for re- evaluation. You likely have a COPD exacerbation. Otherwise, your exam, EKG, chest xray, and lab results did not show signs of an emergent condition at this time. Prednisone and albuterol as directed. Your nebulizer every 4 hours for the next 48 hours and thereafter as needed. Return to the emergency department for worsening symptoms as described in the accompanying instructions.
[2017-04-19 08:30] VITALS: PULSE 90; O2SAT 93
[2017-04-19] MEDS ORDERED: AZITHROMYCIN 250 MG TAB PO ONE (08:30)
[2017-04-19] MEDS ORDERED: ALBUT/IPRATROP 3MG/0.5MG NEB 3 ML VIAL INH ONE ×2 (08:30→12:30)
--- NOTE | 2017-04-19 08:36 | DIAGNOSTIC IMAGING REPORT ---
CHEST ONE VIEW PORTABLE CLINICAL HISTORY: Congestion. COMPARISON STUDY: Chest CT July 27, 2016 and chest radiograph August 22, 2016. FINDINGS: A right subclavian [id number] is unchanged in position. There is no pneumothorax or pleural effusion. There is no consolidation. Pulmonary vascularity is normal. Cardiomediastinal silhouette is normal. The appearance of the chest is unchanged. IMPRESSION: No acute cardiopulmonary findings. Electronically signed by: Bolivar Faustin M.D. 04/19/2017 8:35 AM Dictated Date/Time: 04/19/2017 8:33 AM
[2017-04-19 08:58] LABS: BASO % 0.3 %; BASO ABS # 0.03 K/uL (0-0.2); COMPLETE YES; EOS % 0.8 %; HEMATOCRIT 37.3 % (37-47); IG% 0.1 %; LYMPH % 18.4 %; LYMPH ABS # 1.76 K/uL (1.2-3.4); MEAN CELL VOLUME 92.3 fL (80-100); MEAN CORPUSCULAR HGB CONC 32.4 g/dl (32-36); MEAN PLATELET VOLUME 9.6 fL (7.4-10.4); MONO % 7.1 %; NEUT % 73.3 %; PLATELET COUNT 240 K/uL (130-400); RED BLOOD COUNT 4.04 M/uL (4.2-5.4); WHITE BLOOD COUNT 9.55 K/uL (4.8-10.8)
[2017-04-19 09:16] LABS: ALT/SGPT 17 U/L (12-78); AST/SGOT 16 U/L (15-37); BLOOD UREA NITROGEN 11 mg/dl (7-18); BUN/CREATININE RATIO 18.2 (10-20); CALCIUM 8.6 mg/dl (8.5-10.1); CARBON DIOXIDE 28 mmol/L (21-32); CHLORIDE 104 mmol/L (98-107); CREATININE 0.62 mg/dl (0.60-1.20); GLUCOSE 87 mg/dl (70-99); POTASSIUM 3.9 mmol/L (3.5-5.1); SODIUM 137 mmol/L (136-145)
[2017-04-19 09:21] LABS: ALKALINE PHOSPHATASE 69 U/L (45-117)
[2017-04-19 09:33] VITALS: O2SAT 94
[2017-04-19] MEDS ORDERED: GI COCKTAIL PO STA (12:26)
[2017-04-19] MEDS ORDERED: ALUMINUM/MAGNESIUM SUSP 30 ML UDC ONE (12:34)
[2017-04-19] MEDS ORDERED: LIDOCAINE HCL 2% VISC SOLN 20 ML UDC ONE (12:35)
[2017-04-19 12:55] VITALS: PULSE 110; O2SAT 94
[2017-04-19] MEDS ORDERED: IPRASOL4 INH (12:56)
[2017-04-19] MEDS ORDERED: PRED20TA PO (12:56)
[2017-04-19] MEDS ORDERED: AZIT250T PO (12:56)
[2017-04-19 14:10] VITALS: BP 107/57; PULSE 126; TEMP 37.1; O2SAT 90
== END 2017-04-19 14:11 | disposition home or self-care (01) ==
LOC: C.EDB 07:52 → C.EDA 14:11
DX: J44.1 Chronic obstructive pulmonary disease with (acute) exacerbation (principal); Z86.718 Personal history of other venous thrombosis and embolism; Z87.01 Personal history of pneumonia (recurrent); Z85.028 Personal history of other malignant neoplasm of stomach; Z80.9 Family history of malignant neoplasm, unspecified; Z83.6 Family history of other diseases of the respiratory system

== ENCOUNTER → 2017-08-02 | Outpatient (CLI) | payer BC ==
[~2017-08-02] MED LIST changes: +ADVIN50/60 INH; +ALBU18002 INH; -ERGO500037 PO; -MOME100A INH; -PARO1TAB27 PO; -SUCR1TAB29 PO
--- NOTE | 2017-08-05 07:34 | MAMMOGRAPHY REPORT ---
BILATERAL DIGITAL SCREENING MAMMOGRAM TOMOSYNTHESIS WITH CAD: 08/02/2017 CLINICAL HISTORY: Routine screening. Patient has no complaints. TECHNIQUE: Breast tomosynthesis in addition to standard 2D mammography was performed. Current study was also evaluated with a Computer Aided Detection (CAD) system. Note that the right MLO is somewhat suboptimal due to difficulties with positioning due to a right port catheter; the pectoralis muscle is not visualized down to the posterior nipple line. COMPARISON: Comparison is made to exams dated: 07/06/2013 mammogram, 07/03/2012 mammogram, 06/29/2011 ma mmogram, 12/04/2010 mammogram, 06/06/2010 mammogram, and 06/06/2010 ultrasound - [facility] er. BREAST COMPOSITION: The tissue of both breasts is heterogeneously dense, which may obscure small mas ses. FINDINGS: No suspicious masses, calcifications, or areas of architectural distortion are noted in ei ther breast. There has been no significant interval change compared to prior exams. Scattered bilater al benign-appearing calcifications are not significantly changed. IMPRESSION: ACR BI-RADS CATEGORY 2: BENIGN There is no mammographic evidence of malignancy. A 1 year screening mammogram is recommended. The pa tient will receive written notification of the results. Approximately 10% of breast cancers are not detected with mammography. A negative mammographic report should not delay biopsy if a clinically suggestive mass is present. Krysten Jordan M.D. /:08/02/2017 16:19:58 E Learning Coordinator: Belen VARGAS,R, M, [facility] letter sent: Normal 1/2 BI-RADS Code: ACR BI-RADS Category 2: Benign
== END | disposition home or self-care (01) ==
LOC: C.MAMM 12:48
PROVIDERS: ATTEND Internal Medicine
DX: Z12.31 Encounter for screening mammogram for malignant neoplasm of breast (principal)

== ENCOUNTER → 2017-08-06 | Day surgery (SDC) | payer BC ==
[2017-07-22 08:47] VITALS: BMI 18.0
[~2017-08-06] VITALS: Ht 157.5 cm; Wt 46.8 kg
[~2017-08-06] MED LIST changes: +LIDOCAINE HCL 2% 2 ML VIAL (20MG/ML) ONE; +PROPOFOL IV EMULSION 10 MG/ML 20 ML VIAL IV ONE; +SODIUM CHLORIDE 0.9% 500ML 500 ML IV ONE
[2017-08-06 10:12] VITALS: Ht 157.5 cm; Wt 46.8 kg
--- NOTE | 2017-08-06 10:23 | Endo History and Physical ---
History & Physical Date of Service: Aug 06, 2017. Chief Complaint: Abdominal pain, History of gastric cancer Referring Physician: Dr. Stout History of Present Illness 66 yo CF who presents for EGD secondary to abdominal pain and history of gastric cancer. Past Medical History Arthritis, Asthma, Pulmonary Emboli, Glaucoma, Cancer, Thrombophlebitis, COPD, Thyroid Disease, Liver Disease, Depression Past Surgical History Hx Cardiac Surgery: No Hx Internal Defibrillator: No Hx Pacemaker: No Hx Abdominal Surgery: Yes (BOWEL OBSTRUCTION REPAIR) Hx Post-Op Nausea and Vomiting: No Hx Cancer Surgery: Yes (STOMACH REMOVAL, PORT-A-CATH INSERTION, FEEDING TUBE INSERTION AND REMOVAL) Hx Thoracic Surgery: No Hx Orthopedic: Yes (RT SHOULDER SURGERY X2, LT SHOULDER X1, LT KNEE SURGERY) Hx Urinary Tract Surgery: No Family History None Social History Smoking Status: Former Smoker Hx Substance Use: No Hx Alcohol Use: No Allergies Coded Allergies: Diltiazem (Verified Allergy, Mild, RASH, 07/22/17) Current Medications Reported Home Medications Medications Dose Route/Sig Max Daily Dose Days Date Category Proair Respiclick (Albuterol Sulfate) 108 Mcg/Act Aer 1-2 Puff INH QID PRN 07/22/17 Reported Advair Diskus 500/50 60 Dose (Fluticasone Prop/Salmeterol) 1 Ea Aerp 1 Puff INH BID 07/22/17 Reported Duoneb (Ipratropium-Albuterol) 3 Ml Nebu 1 Treatment INH Q6 PRN 08/31/15 Reported Vital Signs Weight (Kilograms): 46.82 Height (Feet): 5 Height (Inches): 2 Date Time Temp Pulse Resp B/P (MAP) Pulse Ox O2 Delivery O2 Flow Rate FiO2 08/06/17 10:18 36.7 66 18 161/87 (111) 93 Room Air Physical Exam General Appearance: WD/WN, no apparent distress Respiratory/Chest: Auscultation: breath sounds normal Cardiovascular: Heart Auscultation: RRR Abdomen: Bowel Sounds: normal Inspection & Palpation: soft, non-distended, no tenderness, guarding & rebound Assessment and Plan Assessment: 66 yo CF who presents for EGD secondary to abdominal pain and history of gastric cancer. Plan: Proceed with EGD.
--- NOTE | 2017-08-06 12:08 | Discharge Instructions ---
Endoscopy Patient Instructions Date / Procedure(s) Performed Aug 06, 2017. EGD Allergy Information Coded Allergies: Diltiazem (Verified Allergy, Mild, RASH, 08/06/17) Discharge Date / Findings Aug 06, 2017. Normal Upper endoscopy Medication Instructions 1) Start Zantac (ranitidine) 75 mg by mouth twice daily. 2) OK to resume all other medications today as prescribed Reported Home Medications Medications Dose Route/Sig Max Daily Dose Days Date Category Proair Respiclick (Albuterol Sulfate) 108 Mcg/Act Aer 1-2 Puff INH QID PRN 07/22/17 Reported Advair Diskus 500/50 60 Dose (Fluticasone Prop/Salmeterol) 1 Ea Aerp 1 Puff INH BID 07/22/17 Reported Duoneb (Ipratropium-Albuterol) 3 Ml Nebu 1 Treatment INH Q6 PRN 08/31/15 Reported Provider Instructions Activity Restrictions - No exercising or heavy lifting for 24 hours. - Do not drink alcohol the day of the procedure. - Do not drive a car or operate machinery until the day after the procedure. - Do not make any important decisions or sign important papers in 24 hours after the procedure. Following Day: - Return to full activity which may include returning to work/school. Diet Start your diet with liquids and light foods (jello, soup, juice, toast). Then eat your usual diet if not nauseated. Treatment For Common After Affects For mild abdominal pain, bloating, or excessive gas: - Rest - Eat lightly - Lie on right side Follow-Up Information Follow-up with DR. WAYNE as scheduled Anesthesia Information What You Should Know You have had a procedure that required some medicine to reduce anxiety and discomfort. This treatment is called moderate sedation. After receiving the treatment, you may be sleepy, but you will be able to breathe on your own. The effects of the treatment may last for several hours. Follow these instructions along with Activity/Diet recommendations noted above: * Do NOT do anything where dizziness or clumsiness would be dangerous. * Rest quietly at home today, then you can be up and about tomorrow. * Have a responsible person stay with you the rest of today. * You may have had an I.V. today. If so, you may take the dressing off later today. Recommendations Call your doctor if: * Trouble breathing * Continuous vomiting for more than 24 hours * Temperature above 101 degrees * Severe abdominal pain or bloating * Pain not relieved by pain medicine ordered * There is increased drainage or redness from any incision * A large amount of rectal bleeding greater than 2-3 tablespoons. (If you had a polyp/s removed or have hemorrhoids, a small amount of blood - from the rectum is to be expected.) * You have any unanswered questions or concerns. IN THE EVENT OF A SERIOUS EMERGENCY, GO TO THE NEAREST EMERGENCY ROOM Your discharge instructions were prepared by provider Arash Kee. Patient Instructions Signature Page Odalis Castellanos Patient (or Guardian) Signature/Date: I have read and understand the instructions given to me by my caregivers. Caregiver/RN/Doctor Signature/Date: The above-named patient and/or guardian has received patient instructions on this date. + Original Patient Signature Page (only) stays with chart. Please make copy for patient.
--- NOTE | 2017-08-06 12:16 | Anesthesiology Progress Note ---
Anesthesia Post Op Note Date & Time Aug 06, 2017 at 12:16 Vital Signs Pain Intensity: 5 Vital Signs Past 12 Hours Date Time Temp Pulse Resp B/P (MAP) Pulse Ox O2 Delivery O2 Flow Rate FiO2 08/06/17 12:06 36.5 86 16 116/70 (85) 95 Room Air 08/06/17 10:18 36.7 66 18 161/87 (111) 93 Room Air Notes Mental Status: alert / awake / arousable, participated in evaluation Pt Amnestic to Procedure: Yes Nausea / Vomiting: adequately controlled Pain: adequately controlled Airway Patency, RR, SpO2: stable & adequate BP & HR: stable & adequate Hydration State: stable & adequate Anesthetic Complications: no major complications apparent
--- NOTE | 2017-08-06 12:20 | GI REPORT ---
Procedure Date: 08/06/2017 11:19 AM Procedure: Upper GI endoscopy Indications: Generalized abdominal pain Medicines: Monitored Anesthesia Care Complications: No immediate complications. Estimated Blood Loss: Estimated blood loss: none. Procedure: Pre-Anesthesia Assessment: - Prior to the procedure, a History and Physical was performed, and patient medications and allergies were reviewed. The patient's tolerance of previous anesthesia was also reviewed. The risks and benefits of the procedure and the sedation options and risks were discussed with the patient. All questions were answered, and informed consent was obtained. Prior Anticoagulants: The patient has taken no previous anticoagulant or antiplatelet agents. ASA Grade Assessment: II - A patient with mild systemic disease. After reviewing the risks and benefits, the patient was deemed in satisfactory condition to undergo the procedure. After obtaining informed consent, the endoscope was passed under direct vision. Throughout the procedure, the patient's blood pressure, pulse, and oxygen saturations were monitored continuously. The scope was introduced through the mouth, and advanced to the second part of duodenum. The upper GI endoscopy was accomplished without difficulty. The patient tolerated the procedure well. Findings: The esophagus was normal. 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 The gastrojejunal anastomosis was characterized by healthy appearing mucosa. This was traversed. The [id number]-yq-[id number] limb was characterized by healthy appearing mucosa. The examined jejunum was normal. Impression: - Normal esophagus. - Joann-en-Y gastrojejunostomy with gastrojejunal anastomosis characterized by healthy appearing mucosa. - Normal examined jejunum. - No specimens collected. Recommendation: - Resume previous diet. - Continue present medications. - Return to primary care physician as previously scheduled. Arash Kee DO 08/06/2017 12:20:02 PM This report has been signed electronically. Note Initiated On: 08/06/2017 11:19 AM I attest to the content of the Intraoperative Record and orders documented therein, exceptions below
[2017-08-06 12:36] VITALS: BP 138/85; PULSE 69; O2SAT 95
== END | disposition home or self-care (01) ==
LOC: C.GI 09:52
PROVIDERS: ATTEND Internal Medicine
DX: R10.84 Generalized abdominal pain (principal); J45.909 Unspecified asthma, uncomplicated; J44.9 Chronic obstructive pulmonary disease, unspecified; Z85.028 Personal history of other malignant neoplasm of stomach; Z86.711 Personal history of pulmonary embolism; Z87.891 Personal history of nicotine dependence

== ENCOUNTER → 2017-09-17 | Outpatient (CLI) | payer BC ==
[~2017-09-17] MED LIST changes: -LIDOCAINE HCL 2% 2 ML VIAL (20MG/ML) ONE; -PROPOFOL IV EMULSION 10 MG/ML 20 ML VIAL IV ONE; -SODIUM CHLORIDE 0.9% 500ML 500 ML IV ONE
[2017-09-17 16:55] LABS: BASO % 0.5 %; BASO ABS # 0.03 K/uL (0-0.2); EOS % 0.3 %; EOS ABS # 0.02 K/uL (0-0.5); HEMATOCRIT 40.1 % (37-47); HEMOGLOBIN 12.8 g/dL (12.0-16.0); LYMPH % 22.8 %; LYMPH ABS # 1.38 K/uL (1.2-3.4); MEAN CELL VOLUME 92.6 fL (80-100); MEAN CORPUSCULAR HEMOGLOBIN 29.6 pg (25-34); MEAN CORPUSCULAR HGB CONC 31.9 g/dl (32-36); MEAN PLATELET VOLUME 9.8 fL (7.4-10.4); MONO % 5.6 %; MONO ABS # 0.34 K/uL (0.11-0.59); NEUT % 70.8 %; NEUT ABS # 4.28 K/uL (1.4-6.5); PLATELET COUNT 313 K/uL (130-400); RED CELL DISTRIBUTION WIDTH SD 44.3 fL (36.4-46.3); WHITE BLOOD COUNT 6.05 K/uL (4.8-10.8)
[2017-09-17 17:59] LABS: ALBUMIN 3.9 gm/dl (3.4-5.0); ALT/SGPT 20 U/L (12-78); AST/SGOT 25 U/L (15-37); BLOOD UREA NITROGEN 20 mg/dl (7-18); CALCIUM 9.1 mg/dl (8.5-10.1); CARBON DIOXIDE 28 mmol/L (21-32); GLUCOSE 95 mg/dl (70-99); POTASSIUM 4.3 mmol/L (3.5-5.1); SODIUM 138 mmol/L (136-145)
[2017-09-17 18:02] LABS: ALKALINE PHOSPHATASE 74 U/L (45-117); TOTAL PROTEIN 7.2 gm/dl (6.4-8.2)
== END | disposition home or self-care (01) ==
LOC: C.LABBFT 12:15
PROVIDERS: ATTEND Nurse Practitioner Family
DX: C16.9 Malignant neoplasm of stomach, unspecified (principal)

== ENCOUNTER 2017-09-23 17:31 | Emergency (ER) | payer BC ==
[~2017-09-23] VITALS: Ht 154.9 cm; Wt 49.3 kg
[2017-09-23 17:41] VITALS: TEMP 36.9; Ht 154.9 cm; Wt 49.3 kg
[2017-09-23] MEDS ORDERED: METHYLPREDNISOLONE 125 MG VIAL IV STA (17:55)
[2017-09-23] MEDS ORDERED: ALBUT/IPRATROP 3MG/0.5MG NEB 3 ML VIAL INH ONE (18:00)
--- NOTE | 2017-09-23 18:10 | EMERGENCY ROOM VISIT NOTE ---
History Report prepared by Sixto: Albina De La Cruz Under the Supervision of: Dr. Pravin Raymond M.D. First contact with patient: 17:44 Chief Complaint: RESPIRATORY PROBLEMS Stated Complaint: WHEEZING,BRONCHITIS,COUGHING History of Present Illness The patient is a 66 year old female who presents to the Emergency Room with complaints of worsening respiratory problems beginning 6 days ago. The patient reports that she has been taking Doxycycline and Prednisone since her symptoms began, and that she was referred here by Dr. Stout. She states that she has not been coughing up phlegm, but is still wheezing and has had tightness in her chest. The patient reports that she did 2 albuterol treatments today but that they did not help her symptoms. She states that exertion exacerbates her pain, and that nothing helps to alleviate it. The patient denies having fevers, nausea , vomiting, rashes, and swelling in her legs. The patient also denies recent falls and also denies more frequent headaches. The patient does reports having intermittent spasms in the abdominal area. She states that she has a history of stomach cancer, and that she has had her stomach removed. She reports that she is not on chemotherapy anymore. The patient states that she has emphysema and COPD. Source of History: patient Onset: 6 days ago Position: other (generalized ) Quality: other (respiratory problems ) Timing: worsening Modifying Factors (Worsening): exertion Associated Symptoms: + SOB (wheezing, tightness in chest), + abdominal pain (intermittent spasms), No fevers, No nausea, No vomiting, No rash Note: denies: swelling in legs Review of Systems See HPI for pertinent positives & negatives. A total of 10 systems reviewed and were otherwise negative. Past Medical & Surgical Medical Problems: (1) Asthma (2) blood clot (knee, chest) (3) Bronchitis (4) Chest pressure (5) emphysema (6) Epigastric pain (7) History of gastrectomy (8) Pneumonia (9) Skin problems (10) Stomach cancer (11) Stomach problems Surgical Problems: (1) Hx of hysterectomy Family History FHx: cancer FHx: lung disease Social History Smoking Status: Never Smoker Alcohol Use: none Drug Use: none Marital Status: Housing Status: lives with significant other Occupation Status: employed Current/Historical Medications Scheduled Cholecalciferol (Vitamin D), 5,000 UNITS DAILY Doxycycline Monohydrate (Monodox), 100 MG PO BID Fluticasone Prop/Salmeterol (Advair Diskus 500/50 60 Dose), 1 PUFF INH BID Prednisone Tab (Prednisone), 10 MG PO TAPER UD Zoledronic Acid (Reclast), 5 MG IV UD Scheduled PRN Acetaminophen (Tylenol), 1,000 MG PO Q8 PRN for Pain Ipratropium-Albuterol (Duoneb), 1 TREATMENT INH Q4 PRN for SOB/Wheezing [Proair Hfa 108], 2 PUFFS INH Q4 PRN for SOB/Wheezing Allergies Coded Allergies: Diltiazem (Verified Allergy, Mild, RASH, 08/06/17) Physical Exam Vital Signs Date Time Temp Pulse Resp B/P (MAP) Pulse Ox O2 Delivery O2 Flow Rate FiO2 09/23/17 21:18 97 18 145/75 96 Room Air 09/23/17 20:16 97 19 148/65 95 Room Air 09/23/17 19:03 85 18 146/83 100 Nebulizer 7.0 09/23/17 18:27 68 09/23/17 18:23 81 18 97 Room Air 09/23/17 17:41 36.9 94 24 160/81 95 Room Air Physical Exam GENERAL: Patient is mildly anxious appearing and in no acute distress. EYES: No scleral icterus, unremarkable pupils. ENT: Mucous membranes moist, no nasal congestion. NECK: No masses appreciated, no meningismus, trachea is midline. RESPIRATORY: Moderately dyspneic with prolonged expiratory wheezes. Equal bilaterally. No rhonchi. CHEST: Port in right upper chest. Equal chest rise. CARDIOVASCULAR: Regular rate and rhythm. No murmurs, rubs, gallops appreciated. GASTROINTESTINAL: Abdomen soft, nontender, no peritonitis. Bowel sounds positive. No masses appreciated. BACK: No midline tenderness, no CVA tenderness EXTREMITIES: Normal motion all extremities, no cyanosis, no edema. NEUROLOGIC: Alert and oriented, no acute motor or sensory deficits, no focal weakness, cranial nerves grossly intact. SKIN: No rash, no jaundice, no diaphoresis. Medical Decision & Procedures ER Provider Diagnostic Interpretation: Radiology results and stated below per my review and radiologist interpretation: CHEST ONE VIEW PORTABLE CLINICAL HISTORY: Shortness of breath. COMPARISON STUDY: Chest radiograph April 19, 2017. FINDINGS: A right subclavian [id number] is in place. There is no pneumothorax or pleural effusion. No consolidation is present. Pulmonary vascularity is normal. Cardiomediastinal silhouette is normal. IMPRESSION: No acute cardiopulmonary findings. Electronically signed by: Bolivar Faustin M.D. 09/23/2017 6:12 PM Dictated Date/Time: 09/23/2017 6:11 PM Laboratory Results 09/23/17 18:10 Red Blood Count 4.09, Mean Corpuscular Volume 91.2, Mean Corpuscular Hemoglobin 29.6, Mean Corpuscular Hemoglobin Concent 32.4, Mean Platelet Volume 9.4, Neutrophils (%) (Auto) 75.3, Lymphocytes (%) (Auto) 17.5, Monocytes (%) (Auto) 6.8, Eosinophils (%) (Auto) 0.0, Basophils (%) (Auto) 0.2, Neutrophils # (Auto) 4.73, Lymphocytes # (Auto) 1.10, Monocytes # (Auto) 0.43, Eosinophils # (Auto) 0.00, Basophils # (Auto) 0.01 09/23/17 18:10 Test 09/23/17 18:10 09/23/17 19:00 White Blood Count 6.28 K/uL (4.8-10.8) Red Blood Count 4.09 M/uL (4.2-5.4) Hemoglobin 12.1 g/dL (12.0-16.0) Hematocrit 37.3 % (37-47) Mean Corpuscular Volume 91.2 fL (80-100) Mean Corpuscular Hemoglobin 29.6 pg (25-34) Mean Corpuscular Hemoglobin Concent 32.4 g/dl (32-36) Platelet Count 310 K/uL (130-400) Mean Platelet Volume 9.4 fL (7.4-10.4) Neutrophils (%) (Auto) 75.3 % Lymphocytes (%) (Auto) 17.5 % Monocytes (%) (Auto) 6.8 % Eosinophils (%) (Auto) 0.0 % Basophils (%) (Auto) 0.2 % Neutrophils # (Auto) 4.73 K/uL (1.4-6.5) Lymphocytes # (Auto) 1.10 K/uL (1.2-3.4) Monocytes # (Auto) 0.43 K/uL (0.11-0.59) Eosinophils # (Auto) 0.00 K/uL (0-0.5) Basophils # (Auto) 0.01 K/uL (0-0.2) RDW Standard Deviation 42.6 fL (36.4-46.3) RDW Coefficient of Variation 12.8 % (11.5-14.5) Immature Granulocyte % (Auto) 0.2 % Immature Granulocyte # (Auto) 0.01 K/uL (0.00-0.02) Anion Gap 5.0 mmol/L (3-11) Est Creatinine Clear Calc Drug Dose 53.6 ml/min Estimated GFR () 90.3 Estimated GFR (Non- 77.9 BUN/Creatinine Ratio 31.5 (10-20) Calcium Level 8.8 mg/dl (8.5-10.1) Troponin I < 0.015 ng/ml (0-0.045) Venous Blood pH 7.37 (7.36-7.41) Venous Blood Partial Pressure CO2 50 mmHg (38.0-50.0) Venous Blood Partial Pressure O2 33 mmHg Venous Blood HCO3 28 mmol/L Venous Blood Oxygen Saturation < 60.0 % Venous Blood Base Excess 2.0 mEq/L Laboratory results as reviewed by me. Medications Administered Medications (Trade) Dose Ordered Sig/Brandi Route Start Time Stop Time Status Last Admin Dose Admin Methylprednisolone Sodium Succinate (Solu-Medrol IV) 125 mg NOW STAT IV 09/23/17 17:55 09/23/17 17:57 DC 09/23/17 18:13 125 MG Albuterol/ Ipratropium (Duoneb) 12 ml ONE ONCE INH 09/23/17 18:00 09/23/17 18:04 DC 09/23/17 18:00 12 ML Levofloxacin (Levaquin / D5W) 500 mg NOW ONCE IV 09/23/17 20:00 09/23/17 20:01 DC 09/23/17 20:15 500 MG Hydrocodone Bit/ Homatropine Methylb (Hycodan Elix Homepack 5/1.5MG/ 5ML) 1 homepack UD ONCE PO 09/23/17 21:30 09/23/17 21:31 DC 09/23/17 21:30 1 HOMEPACK ECG Per My Interpretation Indication: SOB/dyspnea Rate (beats per minute): 82 Rhythm: normal sinus Findings: no acute ischemic change, no ectopy, other (poor baseline laterally, QTC of 394) ED Course 1747: The patient was evaluated in room A10. A complete history and physical exam was performed. 1914: I checked on the patient who notes only mild improvement with 45 minutes of a nebulizer treatment. 1954: I checked on the patient. She is still having minimal improvement and she would like to be brought into the hospital. She notes that she has a history of pre diabetes. 2011: Upon reevaluation, the patient is resting. Discussed results and treatment plan with the patient. She verbalized understanding and agreement with the treatment plan. The patient will be evaluated for further management by Dr. Brooks. 2099: Dr. Brooks saw the patient. After discussing with her, he advised discharge which she agrees with. 2109: I spoke to the patient. She is okay with leaving. I advised her to follow up with her PCP. Medical Decision Differential: Infectious, Pneumonia, Pneumothorax, COPD, CHF, ACS, Pulmonary Embolism, amongst other etiologies entertained. 66 yr old female with 1 week COPD excarnation already on Pred/Doxy that has improved sputum but still with cough. Hour neb and IV steroids given. CXR clear, EKG OK, labs look OK. No evidence of pneumonia nor sepsis. Initially noting she didn't feel well enough to go home and hospitalist consulted. Patient seen and evaluated but is now doing better and comfortable with discharge. Finish out Pred/Doxy at home. Will given hycodan for cough, especially at night with restrictions reviewed. She does not have evidence of PE, CHF, ACS a this time. Reviewed symptoms requiring RTED and patient/ comfortable with this plan. Mild Hyperglycemia, patient notes previous Pre- Diabetic which goes with current stress response/steroids. Not DKA. Medication Reconcilliation Current Medication List: was personally reviewed by me Blood Pressure Screening Patient's blood pressure: Elevated blood pressure Blood pressure disposition: Elevated BP felt to be situational Consults Time Called: 1956 Consulting Physician: Dr. Brooks- [place] Returned Call: 2011 Discussed the patient's case. The patient will be evaluated for further treatment and disposition. Impression Primary Impression: COPD exacerbation Additional Impression: Hyperglycemia Scribe Attestation The scribe's documentation has been prepared under my direction and personally reviewed by me in its entirety. I confirm that the note above accurately reflects all work, treatment, procedures, and medical decision making performed by me. Departure Information Dispostion Home / Self-Care Referrals Haseeb Stout M.D. (PCP) Patient Instructions My [facility] Additional Instructions Your blood sugar was mildly elevated today. Please discuss this with your primary care provider. You have received a narcotic cough medication. These medications may cause drowsiness and should not be used with other sedative medications. Do not drive , drink alcohol, perform dangerous activities, nor make important decisions after taking these medications. senior living use or inappropriate use may lead to addiction. Use Nebulizer as prescribed. Rest and keep well hydrated. Return if worsening breathing, passing out, fevers, chest pains or other concerns. We are always here to help. Problem Qualifiers
--- NOTE | 2017-09-23 18:14 | DIAGNOSTIC IMAGING REPORT ---
CHEST ONE VIEW PORTABLE CLINICAL HISTORY: Shortness of breath. COMPARISON STUDY: Chest radiograph April 19, 2017. FINDINGS: A right subclavian [id number] is in place. There is no pneumothorax or pleural effusion. No consolidation is present. Pulmonary vascularity is normal. Cardiomediastinal silhouette is normal. IMPRESSION: No acute cardiopulmonary findings. Electronically signed by: Bolivar Faustin M.D. 09/23/2017 6:12 PM Dictated Date/Time: 09/23/2017 6:11 PM
[2017-09-23 18:23] VITALS: PULSE 81; O2SAT 97
[2017-09-23 18:28] LABS: BASO % 0.2 %; BASO ABS # 0.01 K/uL (0-0.2); HEMATOCRIT 37.3 % (37-47); HEMOGLOBIN 12.1 g/dL (12.0-16.0); IG# 0.01 K/uL (0.00-0.02); LYMPH % 17.5 %; MEAN CELL VOLUME 91.2 fL (80-100); MEAN CORPUSCULAR HEMOGLOBIN 29.6 pg (25-34); MEAN CORPUSCULAR HGB CONC 32.4 g/dl (32-36); MEAN PLATELET VOLUME 9.4 fL (7.4-10.4); MONO % 6.8 %; MONO ABS # 0.43 K/uL (0.11-0.59); NEUT % 75.3 %; NEUT ABS # 4.73 K/uL (1.4-6.5); PLATELET COUNT 310 K/uL (130-400); RED CELL DISTRIBUTION WIDTH CV 12.8 % (11.5-14.5); RED CELL DISTRIBUTION WIDTH SD 42.6 fL (36.4-46.3); WHITE BLOOD COUNT 6.28 K/uL (4.8-10.8)
[2017-09-23 18:51] LABS: BLOOD UREA NITROGEN 25 mg/dl (7-18); CALCIUM 8.8 mg/dl (8.5-10.1); CARBON DIOXIDE 29 mmol/L (21-32); GLUCOSE 169 mg/dl (70-99); SODIUM 140 mmol/L (136-145)
[2017-09-23] MEDS ORDERED: DOXY100C76 PO (18:51)
[2017-09-23] MEDS ORDERED: PROAIR HFA 108 INH (18:51)
[2017-09-23] MEDS ORDERED: PRED10TA PO (18:54)
[2017-09-23] MEDS ORDERED: ACET-1256 PO (18:54)
[2017-09-23] MEDS ORDERED: ZOLE5INJ IV (18:54)
[2017-09-23] MEDS ORDERED: CHOL1TAB42 (19:28)
[2017-09-23] MEDS ORDERED: LEVAQUIN 500MG / 100ML D5W IV ONE (20:00)
--- NOTE | 2017-09-23 21:16 | Medical Consult ---
Consultation Date of Consultation: September 23, 2017. Attending Physician: History of Present Illness 66 y/o F Hx COPD, gastric CA in remission, depression. Presents primarily with an intractable cough and wheezing. She was being treated as an outpatient for an exacerbation with a steroid taper and Doxycycline. She states that her symptoms have not improved. She denies any CP, a productive cough or fevers. She has not required any oxygen. Past Medical/Surgical History Medical Problems: (1) COPD exacerbation Status: Acute (2) Failure of outpatient treatment Status: Acute (3) Hyperglycemia Status: Acute (4) Substernal chest pain Status: Acute Family History FHx: cancer FHx: lung disease Social History Smoking Status: Never Smoker Drug Use: none Marital Status: Housing Status: lives with significant other Occupation Status: employed Allergies Coded Allergies: Diltiazem (Verified Allergy, Mild, RASH, 08/06/17) Review of Systems Constitutional: No fever, No chills, No sweats Eyes: No worsening of vision ENT: No hearing loss, No unusual epistaxis, No nasal symptoms Respiratory: + cough, + wheezing, + shortness of breath, No sputum Cardiovascular: No chest pain, No orthopnea, No PND Abdomen: No pain, No nausea, No vomiting Musculoskeletal: No joint pain Genitourinary - Female: No dysuria, No urinary frequency, No urinary urgency Neurologic: No memory loss, No paralysis, No weakness Psychiatric: No depression symptoms Endocrine: No fatigue Hematologic / Lymphatic: No abnormal bleeding/bruising Integumentary: No rash Allergic / Immunologic: No environmental allergies Physical Exam Date Time Temp Pulse Resp B/P (MAP) Pulse Ox O2 Delivery O2 Flow Rate FiO2 09/23/17 20:16 97 19 148/65 95 Room Air 09/23/17 19:03 85 18 146/83 100 Nebulizer 7.0 09/23/17 18:27 68 09/23/17 18:23 81 18 97 Room Air 09/23/17 17:41 36.9 94 24 160/81 95 Room Air General Appearance: WD/WN, no apparent distress Head: normocephalic Eyes: normal inspection ENT: normal ENT inspection, pharynx normal Neck: supple, no JVD Respiratory/Chest: chest non-tender, + pertinent finding (Reduced air movement without wheezing or crackles) Cardiovascular: regular rate, rhythm, no edema, no gallop, no JVD, no murmur Abdomen/GI: normal bowel sounds, non tender, soft Back: normal inspection, no CVA tenderness Extremities/Musculoskelatal: normal inspection, no calf tenderness, normal capillary refill 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, no motor/sensory deficits, alert Skin: normal color Laboratory Results Last 24 Hours Test 09/23/17 18:10 09/23/17 19:00 White Blood Count 6.28 K/uL Red Blood Count 4.09 M/uL Hemoglobin 12.1 g/dL Hematocrit 37.3 % Mean Corpuscular Volume 91.2 fL Mean Corpuscular Hemoglobin 29.6 pg Mean Corpuscular Hemoglobin Concent 32.4 g/dl Platelet Count 310 K/uL Mean Platelet Volume 9.4 fL Neutrophils (%) (Auto) 75.3 % Lymphocytes (%) (Auto) 17.5 % Monocytes (%) (Auto) 6.8 % Eosinophils (%) (Auto) 0.0 % Basophils (%) (Auto) 0.2 % Neutrophils # (Auto) 4.73 K/uL Lymphocytes # (Auto) 1.10 K/uL Monocytes # (Auto) 0.43 K/uL Eosinophils # (Auto) 0.00 K/uL Basophils # (Auto) 0.01 K/uL RDW Standard Deviation 42.6 fL RDW Coefficient of Variation 12.8 % Immature Granulocyte % (Auto) 0.2 % Immature Granulocyte # (Auto) 0.01 K/uL Sodium Level 140 mmol/L Potassium Level 4.0 mmol/L Chloride Level 106 mmol/L Carbon Dioxide Level 29 mmol/L Anion Gap 5.0 mmol/L Blood Urea Nitrogen 25 mg/dl Creatinine 0.80 mg/dl Est Creatinine Clear Calc Drug Dose 53.6 ml/min Estimated GFR () 90.3 Estimated GFR (Non- 77.9 BUN/Creatinine Ratio 31.5 Random Glucose 169 mg/dl Calcium Level 8.8 mg/dl Troponin I < 0.015 ng/ml Venous Blood pH 7.37 Venous Blood Partial Pressure CO2 50 mmHg Venous Blood Partial Pressure O2 33 mmHg Venous Blood HCO3 28 mmol/L Venous Blood Oxygen Saturation < 60.0 % Venous Blood Base Excess 2.0 mEq/L Assessment & Plan 66 y/o F Hx COPD, gastric CA in remission, depression. Presents primarily with an intractable cough and wheezing. She was being treated as an outpatient for an exacerbation with a steroid taper and Doxycycline. She states that her symptoms have not improved. She denies any CP, a productive cough or fevers. She has not required any oxygen. The pt does not display hypoxia. Her CXR and labs are within normal limits and her lung exam is largely normal at present. We believe therefore that she can complete her treatment as an outpt. Her primary complaint currently appears to be a persistent cough. We would recommend that in addition to her steroid taper and inhalers. An additional dose course of antibiotics may not be useful as there is no evidence of infection. The above has been discussed in detail with the pt, her and the ER attending Total time for this consult including review labs, meds, imaging, records - 32 min
[2017-09-23 21:18] VITALS: BP 145/75; PULSE 97; O2SAT 96
[2017-09-23] MEDS ORDERED: HYCODAN 60ML BOTTLE HOMEPACK PO ONE (21:30)
== END 2017-09-23 21:41 | disposition home or self-care (01) ==
LOC: C.EDB 17:32 → C.EDA 21:41
DX: J44.1 Chronic obstructive pulmonary disease with (acute) exacerbation (principal); R73.9 Hyperglycemia, unspecified; Z87.01 Personal history of pneumonia (recurrent); Z85.028 Personal history of other malignant neoplasm of stomach; Z86.718 Personal history of other venous thrombosis and embolism; Z90.49 Acquired absence of other specified parts of digestive tract; Z90.710 Acquired absence of both cervix and uterus; Z88.8 Allergy status to other drugs, medicaments and biological substances

== ENCOUNTER → 2017-12-30 | Outpatient (CLI) | payer BC ==
[~2017-12-30] MED LIST changes: +ACET-1256 PO; -ALBU18002 INH; +CHOL1TAB42; +DOXY100C76 PO; +IPRA-64 INH; -IPRASOL4 INH; +PRED10TA PO; +PROAIR HFA 108 INH; +ZOLE5INJ IV
== END | disposition home or self-care (01) ==
LOC: C.LABBFT 14:09
PROVIDERS: ATTEND Internal Medicine
DX: E53.8 Deficiency of other specified B group vitamins (principal); E55.9 Vitamin D deficiency, unspecified; E78.5 Hyperlipidemia, unspecified

== ENCOUNTER 2022-01-28 23:48 | Inpatient (IN) ==
[2022-01-29] MEDS ORDERED: ONDANSETRON INJ 2 MG/ML 2 ML VIAL IV STA ×2 (00:08→03:45)
[2022-01-29] MEDS ORDERED: SODIUM CHLORIDE 0.9% 500 ML IV STA (00:08)
[2022-01-29] MEDS ORDERED: HYDROmorphone INJ 0.5 MG/0.5 ML SYR IV STA ×2 (00:08→03:30)
[2022-01-29 00:33] LABS: Basophils # (auto) 0.04 K/uL (0-0.2); Basophils % (auto) 0.3 %; Eosinophils # (auto) 0.04 K/uL (0-0.50); Eosinophils % (auto) 0.3 %; Hematocrit (blood only) 44.2 % (34.1-44.9); Hemoglobin 14.5 g/dl (12.0-16.0); Immature Granulocytes # (auto) 0.04 K/uL (0.00-0.02); Immature Granulocytes % (auto) 0.3 %; Lymphocytes # (auto) 1.53 K/uL (1.2-3.4); Lymphocytes % (auto) 12.8 %; Mean Corpuscular Hemoglobin 30.2 pg (25.0-34.0); Mean Corpuscular Hgb Conc 32.8 g/dL (32.0-36.0); Mean Corpuscular Volume 92.1 fL (80.0-100.0); Mean Platelet Volume 9.3 fL (9.4-12.3); Monocytes # (auto) 0.59 K/uL (0.24-0.82); Monocytes % (auto) 4.9 %; Neutrophils # (auto) 9.71 K/uL (1.4-6.5); Neutrophils % (auto) 81.4 %; Platelet Count 311 K/uL (130-400); RDW Standard Deviation 44.5 fL (36.4-46.3); White Blood Count 11.95 K/ul (4.8-10.8)
[2022-01-29 00:42] LABS: iSTAT Creatinine 0.6 mg/dl (0.6-1.3); iSTAT Hemoglobin 15.6 g/dl (12.0-16.0); iSTAT Ionized Calcium 1.27 mmol/l (1.12-1.32); iSTAT Potassium 4.3 mmol/L (3.3-5.0)
--- NOTE | 2022-01-29 00:45 | Emergency Department Note ---
Impression & Plan Small bowel obstruction due to adhesions Admit to the [facility] ED Provider Note NAME: MO SHEETS AGE: 71 SEX: F ARRIVES VIA: Walk-In INFORMANT: Patient and her ED PROVIDER(S): Charlene Escobedo DO CHIEF COMPLAINT: Upper abdominal pain PLAN: Disposition: Admit to the [facility] Condition: Fair MEDICAL DECISION MAKING: This is a 71-year-old female patient with history of stomach cancer with previous gastrectomy who presents to the emergency department with severe upper abdominal pain. Patient has had previous bowel obstructions and feels this is the same thing. She was given IV analgesia and IV antiemetics and started on normal saline drip and kept n.p.o. CT scan of the abdomen/pelvis confirms a high-grade small bowel obstruction. I discussed the case with the [facility] and they will evaluate for further management. We opted not to place an NG tube as the patient has no stomach. She had no significant vomiting while in the emergency department. Triage Nursing notes reviewed and agree with them. Additional history obtained from her who presents at the bedside Prior medical records reviewed Vital Signs: reviewed and remarkable for hypertension and tachycardia Differential diagnosis: Small bowel obstruction; perforated viscus; gastritis ER treatment provided: IV Dilaudid IV Zofran IV normal saline Diagnostics interpreted by me: Cardiac Monitoring: Sinus tachycardia at 105 Laboratory studies: See below Imaging studies: As per stat rad CT abdomen pelvis with contrast: High-grade small bowel obstruction noted with dilated loops of small bowel demonstrating air-fluid levels measuring up to 3.3 cm and with a collapsed appearance of distal small bowel loops. Consider adhesions as a likely etiolog y. HPI: 71/F arrives for evaluation of severe abdominal pain. The patient has sudden onset of epigastric abdominal pain around 8 PM. The pain comes in waves. She then developed dry heaves. She has history of stomach cancer with previous gastrectomy. ROS: See above HPI for pertinent positives & negatives. A total of 10 systems reviewed and were otherwise negative. PAST MEDICAL HISTORY:See Below PAST SURGICAL HISTORY:See Below FAMILY HISTORY:See Below SOCIAL HISTORY: See list HOME MEDICATIONS:See Below ALLERGIES: See list VITALS:See Below PHYSICAL EXAMINATION: HEENT: Head - normocephalic and atraumatic Pupils are equal, round, and reactive to light. Extraocular eye muscles are intact, and sclera are anicteric. Nose - moist nasal mucosa without discharge. Mouth - moist buccal mucosa. Oropharynx is nonerythematous and there is no tonsillar exudate or edema noted. Neck: Supple; no cervical lymphadenopathy. Heart: Regular rate and rhythm. There is a normal S1 and S2 with no murmurs, clicks, or gallops appreciated. Lungs: Clear to auscultation bilaterally with no wheezes, rales, or rhonchi. Abdomen: The patient has significant guarding. There is exquisite tenderness to palpation in the epigastrium. Her exam is consistent with an acute abdomen. Extremities: No evidence of cyanosis, clubbing, or edema. There are easily palpable peripheral pulses. Skin: warm and dry with good turgor and no rashes. ED COURSE: Times/Reassessments: 2355: The patient was evaluated in room C7. A complete history and physical was performed. An IV lock was initiated and labs were drawn as above. An order was placed for continuous cardiac monitoring. The patient is in a sinus tachycardia at 105. The patient was started on a normal saline drip. She was given IV Dilaudid and IV Zofran. She will go for CT scan of the abdomen and pelvis. Upon returning from radiology, I reviewed the results of the scan with the patient. I discussed the case with [facility] Hospitalist and they will evaluate for further management. Charlene Escobedo DO Past Med/Surg History Medical History COPD (chronic obstructive pulmonary disease) History of gastrectomy Stomach cancer Surgical History Hx of hysterectomy Family History Grandmother (Paternal) Breast cancer Grandfather (Maternal) Coronary heart disease Mother Ovarian cancer Father Cancer Denies family history of Colorectal cancer Pulmonary embolism Social History Smoking Status: Former smoker Tobacco Type: Cigarettes Cigarettes Per Day: 2 Packs a day; Second Hand Exposure: No; Hx Alcohol Use: Yes Alcohol type: beer Hx Substance Use: No Preferred Language: Grenadian Communication Ability: Effective Visual Impairment: No Limitations Hearing Ability: Normal Office Services Representative Required: No Beliefs That Will Affect Care: None marital status: Current Living Situation: Spouse current occupational status: retired Feels Safe at Home: Yes Childhood Exposure to Second-Hand Smoke: Yes caffeine: Yes during the past year weight has: remained stable Dental Care, Regularly: Yes Physical Activity Frequency: 3-4 Times per Week Physical Activity Frequency Comment: walk Seatbelt Use: always Sunscreen Use: No Assistive Devices: Glasses Allergies Allergies Allergy/AdvReac Type Severity Reaction Status Date / Time diltiazem Allergy Mild RASH Verified 01/29/22 00:35 NSAIDS (Non-Steroidal AdvReac DR. CHOU Verified 01/29/22 00:35 Anti-Inflamma NOT TO TAKE BECAUSE OF BLEEDING TENDANCY Home Meds Home Medications Medication Instructions Recorded Confirmed No Known Home Medications 01/11/22 01/29/22 Results & Data (ED) Vital Signs Vital Signs - 24 hr 01/28/22 23:58 01/29/22 01:01 Temperature 36.7 C Temperature Source Oral Pulse Rate 105 H Pulse Rate [Apical] 95 H Respiratory Rate 24 20 Respiratory Effort / Characteristics Non-Labored Spontaneous Non-Labored Spontaneous Respiratory Depth Normal Normal Blood Pressure 188/117 H Blood Pressure [Right Arm] 156/98 H Blood Pressure Mean 140 Blood Pressure Mean [Right Arm] 117 Pulse Oximetry 95 91 Oxygen Delivery Method Room Air Room Air Sepsis New/Unexplained Change in Mental Status N/A Sepsis Action Taken by Nursing No Action Required Laboratory Data Result diagrams: 01/29/22 00:22 01/29/22 00:22 Lab Results 01/29/22 01/29/22 01/29/22 Range/Units 00:22 00:22 00:30 WBC 11.95 H (4.8-10.8) K/ul RBC 4.80 (3.93-5.22) M/uL Hgb 14.5 (12.0-16.0) g/dl POC Hgb 15.6 (12.0-16.0) g/dl Hct 44.2 (34.1-44.9) % POC Hct 46 (37-47) % MCV 92.1 (80.0-100.0) fL MCH 30.2 (25.0-34.0) pg MCHC 32.8 (32.0-36.0) g/dL RDW Std Deviation 44.5 (36.4-46.3) fL RDW Coeff of Erwin 13.0 (11.5-14.5) % Plt Count 311 (130-400) K/uL MPV 9.3 L (9.4-12.3) fL Immature Gran % (Auto) 0.3 % Neut % (Auto) 81.4 % Lymph % (Auto) 12.8 % Kidder % (Auto) 4.9 % Eos % (Auto) 0.3 % Baso % (Auto) 0.3 % Neut # (Auto) 9.71 H (1.4-6.5) K/uL Lymph # (Auto) 1.53 (1.2-3.4) K/uL Kidder # (Auto) 0.59 (0.24-0.82) K/uL Eos # (Auto) 0.04 (0-0.50) K/uL Baso # (Auto) 0.04 (0-0.2) K/uL Immature Gran # (Auto) 0.04 H (0.00-0.02) K/uL POC Sodium 140 (135-144) mmol/L Sodium 139 (136-145) mmol/L POC Potassium 4.3 (3.3-5.0) mmol/L Potassium 4.4 (3.5-5.1) mmol/L POC Chloride 103 (101-112) mmol/L Chloride 103 (98-107) mmol/L Carbon Dioxide 28 (21-32) mmol/L POC Total CO2 26 (24-31) mmol/L Anion Gap 8 (3-11) POC Anion Gap 17.0 (16-25) mmol/L POC BUN 34 H (7-18) mg/dl BUN 34 H (6-23) mg/dl Creatinine 0.62 (0.6-1.2) mg/dl POC Creatinine 0.6 (0.6-1.3) mg/dl Est Cr Clr Drug Dosing 55.0 ml/min Est GFR ( Amer) 106.6 ml/min Est GFR (Non-Af Amer) 92.0 ml/min BUN/Creatinine Ratio 54.8 H (10-20) Glucose 134 H (70-99(Fasting)) mg/dl POC Glucose (other) 141 H (70-99) mg/dl Calcium 10.1 (8.5-10.1) mg/dl POC Ioniz Calcium Iron 1.27 (1.12-1.32) mmol/l Total Bilirubin 0.4 (0.2-1.0) mg/dl AST 23 (13-39) U/L ALT 17 (7-52) U/L Alkaline Phosphatase 70 (34-104) U/L Total Protein 7.6 (6.0-8.3) gm/dl Albumin 4.5 (3.4-5.0) gm/dl Globulin 3.1 (2.5-4.0) gm/dl Albumin/Globulin Ratio 1.5 (0.9-2) Lipase 16 (11-82) U/L Urine Color Urine Appearance (Clear) Urine pH (4.5-7.5) Ur Specific [place] (1.000-1.030) Urine Protein (Negative) Urine Glucose (UA) (Negative) Urine Ketones (Negative) Urine Blood (Negative) Urine Nitrite (Negative) Urine Bilirubin (Negative) Urine Urobilinogen (Negative) Ur Leukocyte Esterase (Negative) Urine WBC (Auto) (0-5) /hpf Urine RBC (Auto) (0-4) /hpf U Hyaline Cast (Auto) (0-5) /lpf U Epithel Cells (Auto) (0-5) /lpf Urine Bacteria (Auto) (Negative) Urine Crystals Calcium Oxalate Crystal (None Prsent) Urine Mucus (None Prsent) 01/29/22 Range/Units 00:57 WBC (4.8-10.8) K/ul RBC (3.93-5.22) M/uL Hgb (12.0-16.0) g/dl POC Hgb (12.0-16.0) g/dl Hct (34.1-44.9) % POC Hct (37-47) % MCV (80.0-100.0) fL MCH (25.0-34.0) pg MCHC (32.0-36.0) g/dL RDW Std Deviation (36.4-46.3) fL RDW Coeff of Erwin (11.5-14.5) % Plt Count (130-400) K/uL MPV (9.4-12.3) fL Immature Gran % (Auto) % Neut % (Auto) % Lymph % (Auto) % Kidder % (Auto) % Eos % (Auto) % Baso % (Auto) % Neut # (Auto) (1.4-6.5) K/uL Lymph # (Auto) (1.2-3.4) K/uL Kidder # (Auto) (0.24-0.82) K/uL Eos # (Auto) (0-0.50) K/uL Baso # (Auto) (0-0.2) K/uL Immature Gran # (Auto) (0.00-0.02) K/uL POC Sodium (135-144) mmol/L Sodium (136-145) mmol/L POC Potassium (3.3-5.0) mmol/L Potassium (3.5-5.1) mmol/L POC Chloride (101-112) mmol/L Chloride (98-107) mmol/L Carbon Dioxide (21-32) mmol/L POC Total CO2 (24-31) mmol/L Anion Gap (3-11) POC Anion Gap (16-25) mmol/L POC BUN (7-18) mg/dl BUN (6-23) mg/dl Creatinine (0.6-1.2) mg/dl POC Creatinine (0.6-1.3) mg/dl Est Cr Clr Drug Dosing ml/min Est GFR ( Amer) ml/min Est GFR (Non-Af Amer) ml/min BUN/Creatinine Ratio (10-20) Glucose (70-99(Fasting)) mg/dl POC Glucose (other) (70-99) mg/dl Calcium (8.5-10.1) mg/dl POC Ioniz Calcium Iron (1.12-1.32) mmol/l Total Bilirubin (0.2-1.0) mg/dl AST (13-39) U/L ALT (7-52) U/L Alkaline Phosphatase (34-104) U/L Total Protein (6.0-8.3) gm/dl Albumin (3.4-5.0) gm/dl Globulin (2.5-4.0) gm/dl Albumin/Globulin Ratio (0.9-2) Lipase (11-82) U/L Urine Color Yellow Urine Appearance Clear (Clear) Urine pH 5.5 (4.5-7.5) Ur Specific [place] > 1.045 H (1.000-1.030) Urine Protein 1+ H (Negative) Urine Glucose (UA) Negative (Negative) Urine Ketones Negative (Negative) Urine Blood Negative (Negative) Urine Nitrite Negative (Negative) Urine Bilirubin Negative (Negative) Urine Urobilinogen Negative (Negative) Ur Leukocyte Esterase Negative (Negative) Urine WBC (Auto) 1-5 (0-5) /hpf Urine RBC (Auto) 5-10 H (0-4) /hpf U Hyaline Cast (Auto) 0 (0-5) /lpf U Epithel Cells (Auto) >30 H (0-5) /lpf Urine Bacteria (Auto) Negative (Negative) Urine Crystals Not Reportable Calcium Oxalate Crystal Present A (None Prsent) Urine Mucus Present A (None Prsent) Administered Medications Heparin Sodium (Porcine) (Heparin Sod 5,000 Unit/0.5 Ml Vial) 5,000 units SQ Q12 SHAILESH Stop: 02/28/22 08:59 Last Admin: 01/29/22 09:39 Dose: 5,000 units Documented By: DEBORAH Lactated Ringer's (Lr) 1,000 mls @ 100 mls/hr IV .Q10H SHAILESH Stop: 01/30/22 01:12 Last Admin: 01/29/22 14:49 Dose: 100 mls/hr Documented By: Infusion: 01/29/22 14:49 Dose: 100 mls/hr Documented By: Admin: 01/29/22 05:19 Dose: 100 mls/hr Documented By: BLAYNE Prochlorperazine 5 mg/ Syringe 5 mls @ 5 mls/min IV Q6H PRN PRN Reason: Nausea & Vomiting (Use second) Stop: 02/28/22 07:42 Last Admin: 01/29/22 16:26 Dose: 5 mls/min Documented By: DEBORAH Acetaminophen (Ofirmev) 69 mls @ 260 mls/hr IV Q4H PRN PRN Reason: PAIN 1-5 Stop: 02/01/22 08:35 Last Infusion: 01/29/22 16:42 Dose: 0 mls/hr Documented By: Admin: 01/29/22 16:26 Dose: 260 mls/hr Documented By: Infusion: 01/29/22 09:54 Dose: 0 mls/hr Documented By: Admin: 01/29/22 09:38 Dose: 260 mls/hr Documented By: DEBORAH Ondansetron HCl (Ondansetron Inj 2 Mg/Ml 2 Ml Vial) 4 mg IV Q6H PRN PRN Reason: Nausea (Use First) Stop: 02/28/22 02:05 Last Admin: 01/29/22 09:38 Dose: 4 mg Documented By: DEBORAH Discontinued Medications Acetaminophen (Acetaminophen 1000 Mg/100 Ml Iv) Confirm Administered Dose 1,000 mg IV .STK-MED ONE Stop: 01/29/22 02:49 Last Admin: 01/29/22 02:49 Dose: 1,000 mg Documented By: CHACHO Hydromorphone HCl (Hydromorphone Inj 0.5 Mg/0.5 Ml Syr) 0.5 mg IV NOW STA Stop: 01/29/22 00:09 Last Admin: 01/29/22 00:27 Dose: 0.5 mg Documented By: CHACHO Hydromorphone HCl (Hydromorphone Inj 0.5 Mg/0.5 Ml Syr) 0.5 mg IV NOW STA Stop: 01/29/22 03:31 Last Admin: 01/29/22 03:49 Dose: 0.5 mg Documented By: TONNY Co-signed By: CHACHO Sodium Chloride (Nss) 500 mls @ 999 mls/hr IV .Q31M STA Stop: 01/29/22 00:38 Last Infusion: 01/29/22 01:03 Dose: 0 mls/hr Documented By: Admin: 01/29/22 00:26 Dose: 999 mls/hr Documented By: CHACHO Sodium Chloride (Nss) 500 mls @ 999 mls/hr IV .Q31M ONE Stop: 01/29/22 01:43 Last Infusion: 01/29/22 02:49 Dose: 0 mls/hr Documented By: Admin: 01/29/22 02:18 Dose: 999 mls/hr Documented By: CHACHO Ioversol (Optiray 350 100ml) 94 ml IV ONCE ONE Stop: 01/29/22 00:53 Last Admin: 01/29/22 00:52 Dose: 94 ml Documented By: KELSEY Ondansetron HCl (Ondansetron Inj 2 Mg/Ml 2 Ml Vial) 4 mg IV NOW STA Stop: 01/29/22 00:09 Last Admin: 01/29/22 00:25 Dose: 4 mg Documented By: CHACHO Ondansetron HCl (Ondansetron Inj 2 Mg/Ml 2 Ml Vial) 4 mg IV NOW STA Stop: 01/29/22 03:46 Last Admin: 01/29/22 03:48 Dose: 4 mg Documented By: TONNY Co-signed By: CHACHO Imaging Data Radiologist's Impression: Abdomen/Pelvis CT 01/29/22 00:[address] WITH IV CONTRAST CT DOSE: 235.28 mGy.cm HISTORY: Acute generalized abdominal pain eval for SBO vs perf TECHNIQUE: Multiaxial CT images of the abdomen and pelvis were performed following the IV administration of 94 cc of Optiray, A dose lowering technique was utilized adhering to the principles of ALARA. COMPARISON STUDY: CT abdomen and pelvis 07/31/2020 FINDINGS: Extensive coronary artery calcifications. The heart is upper limits of normal in size. Mild right hemidiaphragmatic elevation. Pulmonary emphysema. There are a few low suspicion subcentimeter subpleural solid nodules noted right lung base measuring up to 6 mm. The study is degraded by respiratory motion artifact. No pneumatosis or pneumoperitoneum identified. The spleen, atrophic pancreas and adrenal glands are unremarkable. Cholecystectomy with likely postsurgical biliary ductal dilation. There is patency of the hepatic and portal veins. Unremarkable kidneys. No urolith or hydronephrosis. Decompressed or bladder with mild wall thickening. Atherosclerosis of the aorta without aneurysm identified. No lymphadenopathy. Distended fluid-filled distal esophagus. Postoperative changes of prior gastrectomy. High-grade small bowel obstruction with transition point in the left lower abdomen, image 166 series 3, likely secondary to small bowel adhesions. Upstream dilated air and fluid-filled small bowel loops with a stool- filled loop just proximal to the site of obstruction. The dilated loops measure up to approximately 3.7 cm. Decompressed distal loops. The appendix is not visualized. Mild interloop edema with trace abdominal pelvic ascites. Unremarkable soft tissues. No acute fracture identified. Lumbar levoscoliosis. Degenerative changes of the spine, pelvis and hips. IMPRESSION: 1. High-grade small bowel obstruction with transition point within the abdominal left lower quadrant, likely secondary to adhesions. 2. No pneumatosis or pneumoperitoneum. 3. Mild interloop edema with small volume of abdominopelvic ascites. 4. Prior gastrectomy, cholecystectomy and hysterectomy. 5. Pulmonary emphysema. ACT 112: Negative or not required by law. The above report was generated using voice recognition software. It may contain grammatical, syntax or spelling errors. Electronically signed by: Jozef Campbell M.D. 01/29/2022 8:00 AM Discharge Plan Visit Data Chief Complaint: Abdominal Pain Stated Complaint: STOMACH PAIN ED Provider: Charlene Escobedo Discharge Problem: Small bowel obstruction due to adhesions Patient Disposition: Admitted As Inpatient Discharge Instructions Interventions: ED Discharge Assessment Last Done: 01/29/22 04:37
[2022-01-29] MEDS ORDERED: OPTIRAY 350 100ml IV ONE (00:52)
[2022-01-29 00:58] LABS: Albumin Globulin Ratio 1.5 (0.9-2); Albumin Level 4.5 gm/dl (3.4-5.0); BUN Creatinine Ratio 54.8 (10-20); Bilirubin,Total 0.4 mg/dl (0.2-1.0); Calcium 10.1 mg/dl (8.5-10.1); Est GFR (African American) 106.6 ml/min; Globulin 3.1 gm/dl (2.5-4.0); Potassium 4.4 mmol/L (3.5-5.1); Total Protein 7.6 gm/dl (6.0-8.3)
[2022-01-29] MEDS ORDERED: SODIUM CHLORIDE 0.9% 500 ML IV ONE (01:13)
[2022-01-29 01:54] LABS: Appearance Urine Clear (Clear); Bacteria Urine Automated Negative (Negative); Bilirubin Urine Negative (Negative); Blood Urine Negative (Negative); Color Urine Yellow; Epithelial Cell Urine Auto >30 /lpf (0-5); Glucose Urine UA Negative (Negative); Ketones Urine Negative (Negative); Leukocyte Esterase Urine Negative (Negative); Nitrite Urine Negative (Negative); Protein Urine 1+ (Negative); Specific Gravity Urine > 1.045 (1.000-1.030); Urobilinogen Urine Negative (Negative); pH Urine 5.5 (4.5-7.5)
[2022-01-29] MEDS ORDERED: ONDANSETRON INJ 2 MG/ML 2 ML VIAL IV PRN ×2 (02:06→07:48)
--- NOTE | 2022-01-29 02:08 | History & Physical Report ---
Date of Service January 29, 2022 Assessment & Plan (1) SBO (small bowel obstruction): Plan: This is a 71-year-old female with a history of stomach cancer s/p gastrectomy, hysterectomy, cholecystectomy, appendectomy, previous SBO ~2009, COPD, hyperlipidemia, prediabetes, osteoporosis who presented to [facility] for evaluation of abdominal pain, subsequently found to have a high-grade SBO on abdominal imaging - likely secondary to adhesions. High Grade SBO - Likely secondary to adhesions from multiple intraabdominal surgeries - Patient is s/p gastrectomy -- will hold on placing NGT unless significant emesis - Will make NPO - LR @ 100cc/hr x 2L - Pain: Tylenol IV > Dilaudid; judicious use of NSAIDs - Appreciate surgical consult - Monitor daily labs HLD, Prediabetes, Osteoporosis - History noted. Continue outpatient PCP care, which was reviewed in our system. Code: Full Diet: NPO PPX: SCDs in case of need for procedure - initiate pharmacologic thereafter given elevated risk with cancer history, age Dispo: MS History of Present Illness Primary Care Provider: Haseeb Stout MD This is a 71-year-old female with a history of stomach cancer s/p gastrectomy, hysterectomy, cholecystectomy, appendectomy, previous SBO ~2009, COPD, hyperlipidemia, prediabetes, osteoporosis who presented to [facility] for evaluation of abdominal pain. Patient said she was in her normal state of health until earlier this evening, when she developed a sharp stabbing abdominal pain that radiated across her whole entire belly. She said it was the worst pain she ever experienced. It was associated with nausea and dry heaves. She did not take any medications at home to relieve the pain. Because it did not go away after several hours, she did decide to come to the emergency department for evaluation. She said over the last couple days, she has had some feelings of dyspepsia, but really has not bothered her too much. Otherwise, she denies any issues with her bowel movements or stomach lately. On review of systems, she does mention to me that she has had some urinary frequency and urgency. She denies any dysuria. She notes that she is only had 1 UTI her whole entire life. She does endorse a significant surgical history, inclusive of gastric cancer status post gastrectomy, hysterectomy, appendectomy, cholecystectomy. She also endorses history of a small bowel obstruction around 2009 after her gastrectomy. She denies any alcohol, tobacco, or recreational drug use. In the ED, patient was found to be hypertensive and borderline tachycardic. Afebrile. Admission labs demonstrated mild leukocytosis to 12 with left shift, BMP demonstrating BUN 34/creatinine 0.62, normal LFTs, normal lipase. Urine studies demonstrate high specific gravity with 1+ proteinuria. CT-A/P STAT-Rad: " High-grade small bowel obstruction noted with dilated loops of small bowel demonstrating air-fluid levels measuring up to 3.3 cm and with a collapsed appearance of distal bowel loops." She was given Zofran, Dilaudid, and started on IV fluids. ---- This documentation was created utilizing dictation software. As such, syntax, grammatical, and word-choice errors may be present. Notes are screened prior to submission in an attempt to reduce these errors. If there are any questions or concerns, please contact the author directly for clarification. Allergies Allergy/AdvReac Type Severity Reaction Status Date / Time diltiazem Allergy Mild RASH Verified 01/29/22 00:35 NSAIDS (Non-Steroidal AdvReac DR. CHOU Verified 01/29/22 00:35 Anti-Inflamma NOT TO TAKE BECAUSE OF BLEEDING TENDANCY Home Medications Medication Instructions Recorded Confirmed Type No Known Home Medications 01/11/22 01/29/22 History Past Med/Surg History Medical History COPD (chronic obstructive pulmonary disease) History of gastrectomy Stomach cancer Surgical History Hx of hysterectomy Family History Grandmother (Paternal) Breast cancer Grandfather (Maternal) Coronary heart disease Mother Ovarian cancer Father Cancer Denies family history of Colorectal cancer Pulmonary embolism Social History Smoking Status: Former smoker Tobacco Type: Cigarettes Second Hand Exposure: No; Hx Alcohol Use: No Hx Substance Use: No Preferred Language: Italian Communication Ability: Effective Visual Impairment: No Limitations Hearing Ability: Normal Confidential Secretary Required: No Beliefs That Will Affect Care: None marital status: Current Living Situation: Spouse current occupational status: retired Feels Safe at Home: Yes Childhood Exposure to Second-Hand Smoke: Yes caffeine: Yes during the past year weight has: remained stable Dental Care, Regularly: Yes Physical Activity Frequency: 3-4 Times per Week Physical Activity Frequency Comment: walk Seatbelt Use: always Sunscreen Use: No Assistive Devices: Glasses Review of Systems Review of Systems: as per HPI Physical Exam Physical Exam: General: 71-year old female who is alert, oriented, and appears in no acute distress. HEENT: NCAT. - Eyes - Sclera are white, anicteric, and without injection. - Mouth - MMM - Neck - supple, no appreciable JVD Cardiac: Normal rate and regular rhythm; S1 and S2 present with no murmurs, rubs, or gallops. Pulmonary: Good respiratory effort with symmetric expansion of the chest. No use of accessory muscles. Lungs were clear to auscultation bilaterally with no crackles or wheezes. Abdominal: Normoactive bowel sounds. Abdomen was soft, nondistended, and mildly TTP in the epigastrum radiating inferiorly towards the umbilicus. Surgical scar, midline, appreciated. Extremities: Upper and lower extremities are warm and well perfused. No peripheral edema in the lower extremities bilaterally Psych: Well-developed, well-nourished, appropriately dressed for occasion. Behavior is cooperative and appropriate. Affect is WNL. Insight is appropriate. Results & Data Results & Data ([facility]) Vital Signs (Past 12 Hours) Vital Signs Temp Pulse Pulse Resp BP BP Pulse Ox 01/29/22 01:01 95 H 20 156/98 H 91 01/28/22 23:58 36.7 C 105 H 24 188/117 H 95 O2 Del Method 01/29/22 01:01 Room Air 01/28/22 23:58 Room Air Supervising Physician Co-Signing Physician Notes Patient seen and examined, chart reviewed, case discussed with Dr. Huggins and I agree with the assessment and plan as documented above. In brief, patient is a 71yo female with history of stomach cancer s/p gastrectomy presenting with abdominal pain found to have high grade SBO. Abdominal tenderness, mild nausea. On exam she is afebrile, HD stable, nontoxic in appearance Skin intact HEENT - MMM, Neck supple, no JVD +S1/S2, regular, no m/r/g Lungs CTA Abd soft, mildly distended and tender, +BS Ext warm, well perfused Labs and images reviewed Assessment/Plan -NPO, NGT if symptoms worsen -Pain control, anti-emetics -General surgery consultation appreciated -Remainder as above Resident Activity Tracking Resident Involvement: Resident Care Provided Care Provided: [facility]
[2022-01-29 02:47] LABS: Calcium Oxalate Crystals Urine Present (None Prsent); Cast Urine Automated 0 /lpf (0-5)
[2022-01-29 02:48] LABS: Mucus Urine Present (None Prsent)
[2022-01-29] MEDS ORDERED: ACETAMINOPHEN 1000 MG/100 ML IV IV ONE (02:48)
--- NOTE | 2022-01-29 04:44 | Surgery Consultation ---
Date of Consultation January 29, 2022 Assessment & Plan (1) Small bowel obstruction due to adhesions: pt is a 71 year-old female who presents to Er with one day history abdominal pain, IMP: SBO, Plan, no emergent surgery indication now, conservative treatment, NPO, iv fluid, control pain, repeat labs in morning, I agree to hold NG tube now , may need surgery treatment if pt's symptoms are getting worse, pt agrees with the plan, i answered all questions, will F/U, History of Present Illness Reason for Consultation: SBO Requesting Physician: Haseeb Stout MD History of Present Illness History of Present Illness Primary Care Provider: Haseeb Stout MD This is a 71-year-old female with a history of stomach cancer s/p gastrectomy, hysterectomy, cholecystectomy, appendectomy, previous SBO ~2009, COPD, hyperlipidemia, prediabetes, osteoporosis who presented to [facility] for evaluation of abdominal pain. Patient said she was in her normal state of health until earlier this evening, when she developed a sharp stabbing abdominal pain that radiated across her whole entire belly. She said it was the worst pain she ever experienced. It was associated with nausea and dry heaves. She did not take any medications at home to relieve the pain. Because it did not go away after several hours, she did decide to come to the emergency department for evaluation. She said over the last couple days, she has had some feelings of dyspepsia, but really has not bothered her too much. Otherwise, she denies any issues with her bowel movements or stomach lately. On review of systems, she does mention to me that she has had some urinary frequency and urgency. She denies any dysuria. She notes that she is only had 1 UTI her whole entire life. She does endorse a significant surgical history, inclusive of gastric cancer status post gastrectomy, hysterectomy, appendectomy, cholecystectomy. She also endorses history of a small bowel obstruction around 2009 after her gastrectomy. She denies any alcohol, tobacco, or recreational drug use. In the ED, patient was found to be hypertensive and borderline tachycardic. Afebrile. Admission labs demonstrated mild leukocytosis to 12 with left shift, BMP demonstrating BUN 34/creatinine 0.62, normal LFTs, normal lipase. Urine s tudies demonstrate high specific gravity with 1+ proteinuria. CT-A/P STAT-Rad: " High-grade small bowel obstruction noted with dilated loops of small bowel demonstrating air-fluid levels measuring up to 3.3 cm and with a collapsed appearance of distal bowel loops." She was given Zofran, Dilaudid, and started on IV fluids. I ( Lexie Contreras MD ) got a call for consult SBO, I reviewed pt's H/P, labs, Ct scan with pt, ---- This documentation was created utilizing dictation software. As such, syntax, grammatical, and word-choice errors may be present. Notes are screened prior to submission in an attempt to reduce these errors. If there are any questions or concerns, please contact the author directly for clarification.Allergies Allergy/AdvReac Type Severity Reaction Status Date / Time diltiazem Allergy Mild RASH Verified 01/29/22 00:35 NSAIDS (Non-Steroidal AdvReac DR. CHOU Verified 01/29/22 00:35 Anti-Inflamma NOT TO TAKE BECAUSE OF BLEEDING TENDANCY Home Medications Medication Instructions Recorded Confirmed Type No Known Home Medications 01/11/22 01/29/22 History Past Med/Surg History Medical History COPD (chronic obstructive pulmonary disease) History of gastrectomy Stomach cancer Surgical History Hx of hysterectomy Family History Grandmother (Paternal) Breast cancerGrandfather (Maternal) Coronary heart diseaseMother Ovarian cancerFather CancerDenies family history of Colorectal cancer Pulmonary embolism Social History Smoking Status: Former smoker Tobacco Type: Cigarettes Second Hand Exposure: No; Hx Alcohol Use: No Hx Substance Use: No Preferred Language: Nicaraguan Communication Ability: Effective Visual Impairment: No Limitations Hearing Ability: Normal Supervising Floorperson Required: No Beliefs That Will Affect Care: None marital status: Current Living Situation: Spouse current occupational status: retired Feels Safe at Home: Yes Childhood Exposure to Second-Hand Smoke: Yes caffeine: Yes during the past year weight has: remained stable Dental Care, Regularly: Yes Physical Activity Frequency: 3-4 Times per Week Physical Activity Frequency Comment: walk Seatbelt Use: always Sunscreen Use: No Assistive Devices: Glasses Review of Systems Review of Systems: as per HPI Allergies Allergy/AdvReac Type Severity Reaction Status Date / Time diltiazem Allergy Mild RASH Verified 01/29/22 00:35 NSAIDS (Non-Steroidal AdvReac DR. CHOU Verified 01/29/22 00:35 Anti-Inflamma NOT TO TAKE BECAUSE OF BLEEDING TENDANCY Home Medications Medication Instructions Recorded Confirmed Type No Known Home Medications 01/11/22 01/29/22 History Patient History Medical History COPD (chronic obstructive pulmonary disease) History of gastrectomy Stomach cancer Surgical History Hx of hysterectomy Family History Grandmother (Paternal) Breast cancer Grandfather (Maternal) Coronary heart disease Mother Ovarian cancer Father Cancer Denies family history of Colorectal cancer Pulmonary embolism Social History Smoking Status: Former smoker Tobacco Type: Cigarettes Second Hand Exposure: No; Hx Alcohol Use: No Hx Substance Use: No Preferred Language: Nicaraguan Communication Ability: Effective Visual Impairment: No Limitations Hearing Ability: Normal Supervising Floorperson Required: No Beliefs That Will Affect Care: None marital status: Current Living Situation: Spouse current occupational status: retired Feels Safe at Home: Yes Childhood Exposure to Second-Hand Smoke: Yes caffeine: Yes during the past year weight has: remained stable Dental Care, Regularly: Yes Physical Activity Frequency: 3-4 Times per Week Physical Activity Frequency Comment: walk Seatbelt Use: always Sunscreen Use: No Assistive Devices: Glasses Physical Exam Constitutional: WD/WN, vitals as above Eyes: PERRL, conjunctivae normal, anicteric sclerae Neck: trachea midline, no thyromegaly Respiratory: normal respiratory effort, lungs clear to auscultation Cardiovascular: RRR, no murmur, no edema Gastrointestinal (Abdomen): soft, middle line scar, mild tenderness , no rebound pain, no distend, BS +, Musculoskeletal: no cyanosis or clubbing, extremities motor strength 5/5 Neurologic: patellar DTR's 2+ bilat, sensation intact Psychiatric: A+Ox3, euthymic affect Results & Data ([facility]) Vital Signs (Past 12 Hours) Vital Signs Temp Pulse Pulse Resp BP BP Pulse Ox 01/29/22 03:53 80 18 155/90 H 95 01/29/22 02:51 84 21 168/93 H 95 01/29/22 01:01 95 H 20 156/98 H 91 01/28/22 23:58 36.7 C 105 H 24 188/117 H 95 O2 Del Method 01/29/22 03:53 Room Air 01/29/22 02:51 Room Air 01/29/22 01:01 Room Air 01/28/22 23:58 Room Air Laboratory Results Abnormal lab results 01/29/22 01/29/22 01/29/22 Range/Units 00:22 00:22 00:30 WBC 11.95 H (4.8-10.8) K/ul MPV 9.3 L (9.4-12.3) fL Neut # (Auto) 9.71 H (1.4-6.5) K/uL Immature Gran # (Auto) 0.04 H (0.00-0.02) K/uL POC BUN 34 H (7-18) mg/dl BUN 34 H (6-23) mg/dl BUN/Creatinine Ratio 54.8 H (10-20) Glucose 134 H (70-99(Fasting)) mg/dl POC Glucose (other) 141 H (70-99) mg/dl Ur Specific Freedom (1.000-1.030) Urine Protein (Negative) Urine RBC (Auto) (0-4) /hpf U Epithel Cells (Auto) (0-5) /lpf Calcium Oxalate Crystal (None Prsent) Urine Mucus (None Prsent) 01/29/22 Range/Units 00:57 WBC (4.8-10.8) K/ul MPV (9.4-12.3) fL Neut # (Auto) (1.4-6.5) K/uL Immature Gran # (Auto) (0.00-0.02) K/uL POC BUN (7-18) mg/dl BUN (6-23) mg/dl BUN/Creatinine Ratio (10-20) Glucose (70-99(Fasting)) mg/dl POC Glucose (other) (70-99) mg/dl Ur Specific Freedom > 1.045 H (1.000-1.030) Urine Protein 1+ H (Negative) Urine RBC (Auto) 5-10 H (0-4) /hpf U Epithel Cells (Auto) >30 H (0-5) /lpf Calcium Oxalate Crystal Present A (None Prsent) Urine Mucus Present A (None Prsent) Diagnostic Findings CT scan- SBO,
[2022-01-29] MEDS ORDERED: ACETAMINOPHEN 1000 MG/100 ML IV IV PRN (05:13)
[2022-01-29] MEDS ORDERED: HYDROmorphone INJ 0.5 MG/0.5 ML SYR IV PRN (05:13)
--- NOTE | 2022-01-29 05:13 | Billing Data ---
Date of Service January 29, 2022 Coding Level of Care Code 86458 Initial Inpt Care Lvl 2
[2022-01-29] MEDS: LACTATED RINGER'S 1,000 ML IV SCH ×2 (05:19→14:49)
[2022-01-29] MEDS ORDERED: ACETAMINOPHEN 1,000 MG/100 ML VIAL IV PRN (05:30)
[2022-01-29] MEDS ORDERED: ACETAMINOPHEN 60 ML IV PRN ×2 (05:30→07:48)
[2022-01-29] MEDS ORDERED: PROCHLORPERAZINE 5 MG in SYRINGE 4 ML IV PRN (07:43)
--- NOTE | 2022-01-29 08:02 | CT Scan Report ---
ABDOMEN AND PELVIS CT WITH IV CONTRAST CT DOSE: 235.28 mGy.cm HISTORY: Acute generalized abdominal pain eval for SBO vs perf TECHNIQUE: Multiaxial CT images of the abdomen and pelvis were performed following the IV administrat ion of 94 cc of Optiray, A dose lowering technique was utilized adhering to the principles of ALARA. COMPARISON STUDY: CT abdomen and pelvis 07/31/2020 FINDINGS: Extensive coronary artery calcifications. The heart is upper limits of normal in size. Mild right hem idiaphragmatic elevation. Pulmonary emphysema. There are a few low suspicion subcentimeter subpleural solid nodules noted right lung base measuring up to 6 mm. The study is degraded by respiratory motio n artifact. No pneumatosis or pneumoperitoneum identified. The spleen, atrophic pancreas and adrenal glands are unremarkable. Cholecystectomy with likely postsu rgical biliary ductal dilation. There is patency of the hepatic and portal veins. Unremarkable kidney s. No urolith or hydronephrosis. Decompressed or bladder with mild wall thickening. Atherosclerosis o f the aorta without aneurysm identified. No lymphadenopathy. Distended fluid-filled distal esophagus. Postoperative changes of prior gastrectomy. High-grade small bowel obstruction with transition point in the left lower abdomen, image 166 series 3, likely second eric to small bowel adhesions. Upstream dilated air and fluid-filled small bowel loops with a stool-fi lled loop just proximal to the site of obstruction. The dilated loops measure up to approximately 3.7 cm. Decompressed distal loops. The appendix is not visualized. Mild interloop edema with trace abdom inal pelvic ascites. Unremarkable soft tissues. No acute fracture identified. Lumbar levoscoliosis. D egenerative changes of the spine, pelvis and hips. IMPRESSION: 1. High-grade small bowel obstruction with transition point within the abdominal left lower quadrant, likely secondary to adhesions. 2. No pneumatosis or pneumoperitoneum. 3. Mild interloop edema with small volume of abdominopelvic ascites. 4. Prior gastrectomy, cholecystectomy and hysterectomy. 5. Pulmonary emphysema. ACT 112: Negative or not required by law. The above report was generated using voice recognition software. It may contain grammatical, syntax o r spelling errors. Electronically signed by: Jozef Campbell M.D. 01/29/2022 8:00 AM
[2022-01-29] MEDS: ACETAMINOPHEN IV PRN ×2 (09:38→16:26)
[2022-01-29] MEDS: HEPARIN SOD 5,000 UNIT/0.5 ML VIAL SQ SCH ×2 (09:39→20:44)
--- NOTE | 2022-01-29 18:58 | Communication Note ---
Date of Service: January 29, 2022 chart reviewed, case d/w dr lima, seen in f/u from early AM admission - sleeping comfortably when i see her. SBO - conservative care. otherwise as per dr lima and as per same day H&P
[2022-01-29] MEDS ORDERED: MELATONIN 3 MG TAB PO PRN (19:49)
[2022-01-30 07:09] LABS: Basophils # (auto) 0.03 K/uL (0-0.2); Basophils % (auto) 0.7 %; Eosinophils # (auto) 0.19 K/uL (0-0.50); Eosinophils % (auto) 4.2 %; Hematocrit (blood only) 37.3 % (34.1-44.9); Hemoglobin 12.2 g/dl (12.0-16.0); Immature Granulocytes # (auto) 0.01 K/uL (0.00-0.02); Immature Granulocytes % (auto) 0.2 %; Lymphocytes # (auto) 1.72 K/uL (1.2-3.4); Lymphocytes % (auto) 38.3 %; Mean Corpuscular Hemoglobin 29.6 pg (25.0-34.0); Mean Corpuscular Hgb Conc 32.7 g/dL (32.0-36.0); Mean Corpuscular Volume 90.5 fL (80.0-100.0); Mean Platelet Volume 9.9 fL (9.4-12.3); Monocytes # (auto) 0.34 K/uL (0.24-0.82); Monocytes % (auto) 7.6 %; Platelet Count 247 K/uL (130-400); RDW Coefficient of Variation 12.8 % (11.5-14.5); RDW Standard Deviation 42.7 fL (36.4-46.3); Red Blood Count 4.12 M/uL (3.93-5.22); White Blood Count 4.49 K/ul (4.8-10.8)
[2022-01-30] MEDS: HEPARIN SOD 5,000 UNIT/0.5 ML VIAL SQ SCH (09:29)
[2022-01-30 09:33] LABS: Albumin Globulin Ratio 1.7 (0.9-2); Albumin Level 3.8 gm/dl (3.4-5.0); Bilirubin,Total 0.7 mg/dl (0.2-1.0); Calcium 8.9 mg/dl (8.5-10.1); Globulin 2.2 gm/dl (2.5-4.0); Potassium 3.7 mmol/L (3.5-5.1)
[2022-01-30 09:53] LABS: BUN Creatinine Ratio 19.6 (10-20); Creatinine Clr Calc Pharmacy 75.6 ml/min; Est GFR (African American) 113.7 ml/min; Est GFR (Non-African American) 98.1 ml/min
--- NOTE | 2022-01-30 10:31 | Surgery Progress Note ---
Date of Service January 30, 2022 Assessment & Plan (1) Small bowel obstruction due to adhesions: Plan: Resolved tolerated diet No n,v + bowel function Plan: no surgical intervention required at this time advance to full liquids continue ambulation will order jewel bearing grinder consult , patient request continue current medical management possibly home later today would recommend low fiber diet for 1-2 weeks and then advance to regular diet given the SBO Dr. Contreras has seen and examined pt, agrees with above. Admission and Anticipated Discharge Date Admission Date: January 29, 2022 Subjective feeling 100% better no abdominal pain no n,v had bowel movement this am tolerated clear liquids Physical Exam Constitutional: WD/WN, vitals as above no acute distress and not ill appearing Respiratory: normal respiratory effort; no respiratory distress, no labored breathing and no retractions Gastrointestinal (Abdomen): Inspection/Auscultation: abdomen normal to inspection and + abdominal surgical scar (midline laparotomy scar); abdomen not distended Percussion/Palpation: abdomen soft; abdomen nontender, no guarding and abdomen not rigid Skin: no rashes, warm and dry Psychiatric: A+Ox3, euthymic affect Results & Data ([facility]) Vital Signs (Past 12 Hours) Vital Signs Temp Pulse Resp BP Pulse Ox O2 Del Method 01/30/22 07:30 36.9 C 70 16 155/80 H 93 Room Air 01/29/22 22:50 36.4 C L 71 16 134/72 92 Room Air Laboratory Results 01/30/22 01/30/22 Range/Units 06:38 06:38 WBC 4.49 L (4.8-10.8) K/ul RBC 4.12 (3.93-5.22) M/uL Hgb 12.2 (12.0-16.0) g/dl Hct 37.3 (34.1-44.9) % MCV 90.5 (80.0-100.0) fL MCH 29.6 (25.0-34.0) pg MCHC 32.7 (32.0-36.0) g/dL RDW Std Deviation 42.7 (36.4-46.3) fL RDW Coeff of Erwin 12.8 (11.5-14.5) % Plt Count 247 (130-400) K/uL MPV 9.9 (9.4-12.3) fL Immature Gran % (Auto) 0.2 % Neut % (Auto) 49.0 % Lymph % (Auto) 38.3 % [place] % (Auto) 7.6 % Eos % (Auto) 4.2 % Baso % (Auto) 0.7 % Neut # (Auto) 2.20 (1.4-6.5) K/uL Lymph # (Auto) 1.72 (1.2-3.4) K/uL [place] # (Auto) 0.34 (0.24-0.82) K/uL Eos # (Auto) 0.19 (0-0.50) K/uL Baso # (Auto) 0.03 (0-0.2) K/uL Immature Gran # (Auto) 0.01 (0.00-0.02) K/uL Sodium 139 (136-145) mmol/L Potassium 3.7 (3.5-5.1) mmol/L Chloride 105 (98-107) mmol/L Carbon Dioxide 28 (21-32) mmol/L Anion Gap 6 (3-11) BUN 10 D (6-23) mg/dl Creatinine 0.51 L (0.6-1.2) mg/dl Est Cr Clr Drug Dosing 75.6 ml/min Est GFR ( Amer) 113.7 ml/min Est GFR (Non-Af Amer) 98.1 ml/min BUN/Creatinine Ratio 19.6 (10-20) Glucose 75 (70-99(Fasting)) mg/dl Calcium 8.9 (8.5-10.1) mg/dl Total Bilirubin 0.7 (0.2-1.0) mg/dl AST 34 (13-39) U/L ALT 26 (7-52) U/L Alkaline Phosphatase 60 (34-104) U/L Total Protein 6.0 D (6.0-8.3) gm/dl Albumin 3.8 (3.4-5.0) gm/dl Globulin 2.2 L (2.5-4.0) gm/dl Albumin/Globulin Ratio 1.7 (0.9-2)
--- NOTE | 2022-01-30 13:01 | Discharge Summary ---
Date of Service January 30, 2022 Admission HPI Per Admitting Provider This is a 71-year-old female with a history of stomach cancer s/p gastrectomy, hysterectomy, cholecystectomy, appendectomy, previous SBO ~2009, COPD, hyperlipidemia, prediabetes, osteoporosis who presented to [facility] for evaluation of abdominal pain. Patient said she was in her normal state of health until earlier this evening, when she developed a sharp stabbing abdominal pain that radiated across her whole entire belly. She said it was the worst pain she ever experienced. It was associated with nausea and dry heaves. She did not take any medications at home to relieve the pain. Because it did not go away after several hours, she did decide to come to the emergency department for evaluation. She said over the last couple days, she has had some feelings of dyspepsia, but really has not bothered her too much. Otherwise, she denies any issues with her bowel movements or stomach lately. On review of systems, she does mention to me that she has had some urinary frequency and urgency. She denies any dysuria. She notes that she is only had 1 UTI her whole entire life. She does endorse a significant surgical history, inclusive of gastric cancer status post gastrectomy, hysterectomy, appendectomy, cholecystectomy. She also endorses history of a small bowel obstruction around 2009 after her gastrectomy. She denies any alcohol, tobacco, or recreational drug use. In the ED, patient was found to be hypertensive and borderline tachycardic. Afebrile. Admission labs demonstrated mild leukocytosis to 12 with left shift, BMP demonstrating BUN 34/creatinine 0.62, normal LFTs, normal lipase. Urine studies demonstrate high specific gravity with 1+ proteinuria. CT-A/P STAT-Rad: " High-grade small bowel obstruction noted with dilated loops of small bowel demonstrating air-fluid levels measuring up to 3.3 cm and with a collapsed appearance of distal bowel loops." She was given Zofran, Dilaudid, and started on IV fluids. ---- This documentation was created utilizing dictation software. As such, syntax, grammatical, and word-choice errors may be present. Notes are screened prior to submission in an attempt to reduce these errors. If there are any questions or concerns, please contact the author directly for clarification. Principal Diagnosis SBO Discharge Exam Constitutional WD/WN, vitals as above Eyes + anicteric sclerae Neck normal visual inspection Respiratory normal respiratory effort, lungs clear to auscultation Cardiovascular RRR, no murmur, no edema Gastrointestinal (Abdomen) normal bowel sounds, soft, nontender, no hepatosplenomegaly Musculoskeletal Head/Neck/Chest: normocephalic and head atraumatic Skin no rashes, warm and dry Neurologic moves all extremities Psychiatric A+Ox3, euthymic affect Discharge Data Allergies Allergy/AdvReac Type Severity Reaction Status Date / Time diltiazem Allergy Mild RASH Verified 01/29/22 00:35 NSAIDS (Non-Steroidal AdvReac DR. CHOU Verified 01/29/22 00:35 Anti-Inflamma NOT TO TAKE BECAUSE OF BLEEDING TENDANCY Consultations 01/29/22 02:33 Consult General Surgery Routine 01/29/22 02:54 ED Decision to Admit Stat Ordered Studies 01/29/22 00:08 CT abd pelvis IV con only Urgent Hospital Course (1) SBO (small bowel obstruction): This is a 71-year-old female with a history of stomach cancer s/p gastrectomy, hysterectomy, cholecystectomy, appendectomy, previous SBO ~2009, COPD, hyperlipidemia, prediabetes, osteoporosis who presented to [facility] for evaluation of abdominal pain, subsequently found to have a high-grade SBO on abdominal imaging - likely secondary to adhesions. High Grade SBO - Likely secondary to adhesions from multiple intraabdominal surgeries - Patient is s/p gastrectomy --no utilization of NG/NJ tube use during hospitalization -Patient was n.p.o. for about 16 hours and then titrated up to clear liquids and this morning was advanced to full liquid/regular diet and was able to tolerate - Pain: Tylenol IV > Dilaudid; judicious use of NSAIDs - Appreciate surgical consult-recommended conservative management for now - Monitor daily labs, no gross abnormalities during hospitalization HLD, Prediabetes, Osteoporosis - History noted. Continue outpatient PCP care, which was reviewed in our system. Code: Full Diet: NPO PPX: SCDs in case of need for procedure - initiate pharmacologic thereafter given elevated risk with cancer history, age Dispo: MS Total Time Total Time Spent Total Time Spent (In Minutes): <30 Discharge Plan Discharge Items Patient Disposition: Home - Self-Care Reason For Visit: HIGH GRADE SBO Discharge Diagnosis: Small bowel obstruction Activity: Per Instructions section Non-emergency contact: Primary Care Provider Call non-emergency contact if: you have any medication questions, your symptoms worsen and your pain is worsening Follow-up/Referrals: Haseeb Stout MD [Primary Care Provider] - 02/07/22 2:00 pm Diet: Regular Addtl Attending Provider Instructions: You were seen in the hospital for evaluation of acute abdominal pain. While you are here you had imaging that was consistent with a small bowel obstruction. As explained to you, the small bowel obstruction was likely due to adhesions (scar tissue) from previous abdominal surgeries. For this reason you were put on nothing by mouth diet and was given bowel rest and slowly titrated up as you are able to tolerate. By the time you are discharged from the hospital you were able to tolerate a regular diet. As mentioned, do not spend too much time thinking about what may have triggered this obstruction as it is likely nothing that you ate that was the enticing cause. Please follow-up with your primary care provider within the next week for further instructions regarding your care. Is been a pleasure to be part of your care and we wish you the best in both your health and recovery. Pending Studies at Discharge: No Stand-Alone Forms: My [facility], Smoking Cessation Medications and DC Order Prescriptions: No Action No Known Home Medications Discharge Orders: Discharge Order (Routine); Ordered 01/30/22 Ordered By: Stefan Mejia/Other Patient Handouts: Small Bowel Obstruction Admission Data Admit Date/Time: 01/29/22 02:06 Attending Provider: Rock Caputo Admit Provider: Rock Huggins Primary Care Provider: Haseeb Stout Other Providers: Lexie Contreras ; Crista Wood Other Interventions: Discharge Summary Assessment (RN) Last Done: 01/30/22 14:05 Supervising Physician Co-Signing Physician Notes I personally examined the patient and verified all cifuentes points of history and exam, discussed case, and agree with decision making with Dr Monique Feeling better. Eating normal food. Would very much like to go home. Vitals noted, in general she is awake and alert pleasant no distress. HEENT normocephalic atraumatic mucous membranes moist. Breathing unlabored no accessory muscle use good effort. Skin shows no rashes no pallor or icterus. Neuro without focal deficits. Small bowel obstructionadhesionalfortunately appears to be improved. Safe/stable for home. Outpatient PCP follow-up. otherwise as above
--- NOTE | 2022-01-30 17:48 | Billing Data ---
Date of Service January 30, 2022 Coding Level of Care Code D/C DAY MANAGEMENT <30 MINS
--- NOTE | 2022-02-08 08:59 | Coding Query ---
BMI To promote full compliance with coding requirements relating to patient care, physician participation is requested in all cases of outpatient coder uncertainty. Please assist us with the question(s) below: Please place an X within the parenthesis (x). If other, please document: BMI 19.1 was documented in this record for this patient. If the BMI is significant, please check the box that provides a more specific associated diagnosis: ( ) Overweight/Obese ( ) Obesity ( ) Morbid obesity ( ) Obesity Hypoventilation Syndrome (OHS) ( ) Heathy weight, not significant (x ) Underweight/Thin ( ) Other, please specify Thank you Jane MARINA
== END 2022-01-30 14:30 | disposition home or self-care (01) | DRG 389 ==
LOC: ED 23:48 → 2N 01-29 02:06 → SUATTDRO 01-29 02:06 → 2N 01-29 04:37
DX: R63.6 Underweight; E78.5 Hyperlipidemia, unspecified; Z90.49 Acquired absence of other specified parts of digestive tract; Z88.6 Allergy status to analgesic agent; Z87.19 Personal history of other diseases of the digestive system; M81.0 Age-related osteoporosis without current pathological fracture; Z68.1 Body mass index [BMI] 19.9 or less, adult; J44.9 Chronic obstructive pulmonary disease, unspecified; Z87.891 Personal history of nicotine dependence; Z90.3 Acquired absence of stomach [part of]; Z88.8 Allergy status to other drugs, medicaments and biological substances; Z90.710 Acquired absence of both cervix and uterus; K56.50 Intestinal adhesions [bands], unspecified as to partial versus complete obstruction; Z85.028 Personal history of other malignant neoplasm of stomach; R73.03 Prediabetes

== ENCOUNTER 2022-10-26 00:40 | Inpatient (IN) ==
[2022-10-26] MEDS ORDERED: MoRPHine SULFATE 2 MG/ML CARP IV STA ×3 (00:58→05:27)
[2022-10-26] MEDS ORDERED: FAMOTIDINE 20MG IV PUSH 20 MG/5 ML SYR IV STA (00:58)
[2022-10-26] MEDS ORDERED: ACETAMINOPHEN IV STA (00:58)
[2022-10-26] MEDS ORDERED: METOCLOPRAMIDE HCL INJ 5 MG/ML 2 ML VIAL IV ONE (00:58)
--- NOTE | 2022-10-26 01:02 | Emergency Department Note ---
Impression & Plan Abdominal pain, Nausea, Small bowel obstruction ED Provider Note ED Provider Note NAME: MO SHEETS AGE:71 SEX: Female : 1950 ARRIVES VIA: Private vehicle INFORMANT: Patient ED PROVIDER(s): Adamaris Montez DO CHIEF COMPLAINT: Abdominal pain HPI: This is a 71-year-old female presents emergency department complaining of upper abdominal pain that began this evening around 6 PM. She states she felt fine earlier in the day. No recent change in diet or medications. No prior similar events. Patient with significant prior surgical history including removal of part of her stomach for cancer, as well as cholecystectomy and appendectomy. Patient states pain has been waxing and waning sometimes she rates it at a 1 or 2 and other times she states she would rated as a 10 out of 10. She states pain is otherwise nonradiating. No change with position or exertion. She did try Gas-X and Tums at home without relief. She denies any sense of abdominal bloating. Denies any recent change in bowel movements or urine. She denies black or bloody stools. Patient states she has been nauseated however no vomiting. She denies any fevers or chills. PAST MEDICAL HISTORY:See Below PAST SURGICAL HISTORY:See Below FAMILY HISTORY:See Below SOCIAL HISTORY:See Below HOME MEDICATIONS:See Below ALLERGIES:See Below VITALS:See Below PHYSICAL EXAMINATION: GENERAL: alert, uncomfortable and anxious appearing, well nourished, no distress, non-toxic EYE EXAM: normal conjunctiva, PERRL and EOM's grossly intact OROPHARYNX: no exudate, no erythema, lips, buccal mucosa, and tongue normal and mucous membranes are moist NECK: supple, no nuchal rigidity, no adenopathy, non-tender LUNGS: Clear to auscultation. Normal chest wall mechanics, no w/r/r HEART: no murmurs, S1 normal and S2 normal ABDOMEN: abdomen soft, epigastric and bilateral upper quadrant tenderness with p alpation, normo-active bowel sounds, no masses, no rebound or guarding. BACK: Back is symmetrical on inspection and there is no deformity, no midline tenderness, no CVA tenderness. SKIN: no rashes, petechiae, orbruising UPPER EXTREMITIES: upper extremities are grossly normal. FROM, nml pulses b/l. LOWER EXTREMITIES: No pitting edema. FROM, nml pulses b/l. NEURO EXAM: Normal sensorium, cranial nerves II-XII grossly intact, normal speech, no facial droop,nogross weakness of arms, no gross weakness of legs. Gross sensation intact. No ataxia. Vital Signs: reviewed and remarkable Differential Diagnosis: Bowel obstruction, volvulus, mesenteric ischemia, perforation, GI bleed, intestinal spasm, colitis, enteritis, as well as others were considered MEDICAL DECISION MAKING: This is a 71-year-old female presents emerged part with abdominal pain and nausea. Patient with significant past surgical history. She was afebrile and vital signs stable. Labs drawn and sent, IV established, EKG performed at bedside and interpreted by me and patient monitored on telemetry. Patient started on IV fluid rehydration and given IV Tylenol, IV Reglan, and IV morphine for her pain and nausea. Patient sent for CT imaging which ultimately revealed a small bowel obstruction. Patient was given additional morphine due to ongoing pain. Case discussed with the hospitalist for additional evaluation and management. Consultation(s): 0439: DIscussed with Dr. Plunkett. ER Treatment Provided: See below Diagnostics Interpreted By Me: -ECG: Normal sinus at 83, normal axis, normal intervals, no acute ST/T wave changes -Cardiac Monitoring: An order was placed for continuous cardiac monitoring. The monitor shows a rate of 76 with normal sinus rhythm. -Laboratory studies: As stated above and show below. -Imaging studies: [] Triage Nursing Note Reviewed Prior/Outside Records Reviewed Past Med/Surg History Medical History COPD (chronic obstructive pulmonary disease) History of gastrectomy History of gastrectomy Osteoporosis Small bowel obstruction due to adhesions Stomach cancer Surgical History History of appendectomy History of cataract surgery Hx of cholecystectomy Hx of hysterectomy Hx of LASIK Family History Grandmother (Paternal) Breast cancer Grandfather (Maternal) Coronary heart disease Myocardial infarction Mother Ovarian cancer Cancer Father , Liver Cancer Grandmother (Maternal) Myocardial infarction Sister Myocardial infarction Aunt Myocardial infarction Denies family history of Prostate cancer Colorectal cancer Pulmonary embolism Social History Smoking Status: Former smoker Tobacco Type: Cigarettes packs per day: 2; Cigarettes Per Day: 2 Packs a day; Second Hand Exposure: No; Do You Dip or Chew Tobacco: No; Hx Alcohol Use: Yes Alcohol type: beer Alcohol Intake Frequency: 2-3 x/Week Hx Substance Use: No Preferred Language: Grenadian Communication Ability: Effective Visual Impairment: No Limitations Hearing Ability: Normal Stenciling Machine Tender Required: No Beliefs That Will Affect Care: None marital status: Current Living Situation: Spouse current occupational status: retired 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 CHOU Verified 10/26/22 01:05 Anti-Inflamma NOT TO TAKE BECAUSE OF BLEEDING TENDANCY Home Meds Home Medications Medication Instructions Recorded Confirmed alendronate 70 mg tablet (Fosamax) 70 mg PO WK 10/26/22 10/26/22 Previous Rx's Medication Instructions Recorded losartan 25 mg tablet 25 mg PO DAILY #30 tabs 09/28/22 Results & Data (ED) Vital Signs Vital Signs - 24 hr 10/26/22 00:44 10/26/22 01:20 10/26/22 02:34 Temperature 36.3 C L Temperature Source Temporal Artery Scan Pulse Rate 107 H Pulse Rate [Apical] 95 H 76 Respiratory Rate 32 H 18 16 Respiratory Depth Shallow Blood Pressure 162/107 H Blood Pressure [Right Arm] 176/108 H 146/101 H Blood Pressure Mean 125 Blood Pressure Mean [Right Arm] 130 116 Pulse Oximetry 98 95 95 Oxygen Delivery Method Room Air Room Air Room Air Sepsis Recent Fever Within 48 Hours No Sepsis New/Unexplained Change in Mental Status No Sepsis Action Taken by Nursing No Action Required 10/26/22 04:09 10/26/22 04:53 10/26/22 05:08 Temperature Temperature Source Pulse Rate 72 Pulse Rate [Apical] 71 77 Respiratory Rate 16 16 Respiratory Depth Blood Pressure Blood Pressure [Right Arm] 166/82 H 157/96 H Blood Pressure Mean Blood Pressure Mean [Right Arm] 110 116 Pulse Oximetry 96 97 Oxygen Delivery Method Room Air Room Air Sepsis Recent Fever Within 48 Hours Sepsis New/Unexplained Change in Mental Status Sepsis Action Taken by Nursing Laboratory Data 10/26/22 01:30 10/26/22 01:30 Lab Results 10/26/22 10/26/22 10/26/22 Range/Units 01:30 01:30 01:30 WBC 7.77 (4.8-10.8) K/ul RBC 4.37 (4.20-5.40) M/uL Hgb 13.1 (12.0-16.0) g/dl Hct 39.4 (37.0-47.0) % MCV 90.2 (80.0-100.0) fL MCH 30.0 (25.0-34.0) pg MCHC 33.2 (32.0-36.0) g/dL RDW Std Deviation 43.8 (36.4-46.3) fL RDW Coeff of [place] 13.2 (11.5-14.5) % Plt Count 268 (130-400) K/uL MPV 9.5 (9.4-12.4) fL Immature Gran % (Auto) 0.3 % Neut % (Auto) 70.6 % Lymph % (Auto) 21.6 % [place] % (Auto) 5.9 % Eos % (Auto) 1.2 % Baso % (Auto) 0.4 % Neut # (Auto) 5.49 (1.40-6.50) K/uL Lymph # (Auto) 1.68 (1.2-3.4) K/uL [place] # (Auto) 0.46 (0.11-0.59) K/uL Eos # (Auto) 0.09 (0-0.50) K/uL Baso # (Auto) 0.03 (0-0.2) K/uL Immature Gran # (Auto) 0.02 (0.01-0.20) K/uL Sodium 138 (136-145) mmol/L Potassium 4.1 (3.5-5.1) mmol/L Chloride 104 (98-107) mmol/L Carbon Dioxide 27 (21-32) mmol/L Anion Gap 7 (3-11) BUN 28 H (6-23) mg/dl Creatinine 0.63 (0.6-1.2) mg/dl Est Cr Clr Drug Dosing 60.3 ml/min Est GFR ( Amer) 106.1 ml/min Est GFR (Non-Af Amer) 91.5 ml/min BUN/Creatinine Ratio 44.4 H (10-20) Glucose 114 H (70-99(Fasting)) mg/dl Lactate 0.8 (0.4-2.0) mmol/L Calcium 9.4 (8.6-10.3) mg/dl Magnesium 1.9 (1.7-2.4) mg/dl Total Bilirubin 0.6 (0.2-1.0) mg/dl AST 25 (13-39) U/L ALT 17 (7-52) U/L Alkaline Phosphatase 68 (34-104) U/L Troponin I High Sens 4.4 (0-14) pg/ml Total Protein 6.7 (6.0-8.3) gm/dl Albumin 4.1 (3.4-5.0) gm/dl Globulin 2.6 (2.5-4.0) gm/dl Albumin/Globulin Ratio 1.6 (0.9-2) Lipase 12 (11-82) U/L Urine Color Urine Appearance (Clear) Urine pH (4.5-7.5) Ur Specific [place] (1.000-1.030) Urine Protein (Negative) Urine Glucose (UA) (Negative) Urine Ketones (Negative) Urine Blood (Negative) Urine Nitrite (Negative) Urine Bilirubin (Negative) Urine Urobilinogen (Negative) Ur Leukocyte Esterase (Negative) Urine WBC (Auto) (0-5) /hpf Urine RBC (Auto) (0-4) /hpf U Hyaline Cast (Auto) (0-5) /lpf U Epithel Cells (Auto) (0-5) /lpf Urine Bacteria (Auto) (Negative) Urine Crystals Calcium Oxalate Crystal (None Prsent) Urine Mucus (None Prsent) SARS-CoV-2, RNA, NAAT (NEGATIVE) 10/26/22 10/26/22 Range/Units 01:30 04:40 WBC (4.8-10.8) K/ul RBC (4.20-5.40) M/uL Hgb (12.0-16.0) g/dl Hct (37.0-47.0) % MCV (80.0-100.0) fL MCH (25.0-34.0) pg MCHC (32.0-36.0) g/dL RDW Std Deviation (36.4-46.3) fL RDW Coeff of [place] (11.5-14.5) % Plt Count (130-400) K/uL MPV (9.4-12.4) fL Immature Gran % (Auto) % Neut % (Auto) % Lymph % (Auto) % [place] % (Auto) % Eos % (Auto) % Baso % (Auto) % Neut # (Auto) (1.40-6.50) K/uL Lymph # (Auto) (1.2-3.4) K/uL [place] # (Auto) (0.11-0.59) K/uL Eos # (Auto) (0-0.50) K/uL Baso # (Auto) (0-0.2) K/uL Immature Gran # (Auto) (0.01-0.20) K/uL Sodium (136-145) mmol/L Potassium (3.5-5.1) mmol/L Chloride (98-107) mmol/L Carbon Dioxide (21-32) mmol/L Anion Gap (3-11) BUN (6-23) mg/dl Creatinine (0.6-1.2) mg/dl Est Cr Clr Drug Dosing ml/min Est GFR ( Amer) ml/min Est GFR (Non-Af Amer) ml/min BUN/Creatinine Ratio (10-20) Glucose (70-99(Fasting)) mg/dl Lactate (0.4-2.0) mmol/L Calcium (8.6-10.3) mg/dl Magnesium (1.7-2.4) mg/dl Total Bilirubin (0.2-1.0) mg/dl AST (13-39) U/L ALT (7-52) U/L Alkaline Phosphatase (34-104) U/L Troponin I High Sens (0-14) pg/ml Total Protein (6.0-8.3) gm/dl Albumin (3.4-5.0) gm/dl Globulin (2.5-4.0) gm/dl Albumin/Globulin Ratio (0.9-2) Lipase (11-82) U/L Urine Color Yellow Urine Appearance Cloudy A (Clear) Urine pH 6.0 (4.5-7.5) Ur Specific [place] 1.027 (1.000-1.030) Urine Protein Negative (Negative) Urine Glucose (UA) Negative (Negative) Urine Ketones Trace H (Negative) Urine Blood Negative (Negative) Urine Nitrite Negative (Negative) Urine Bilirubin Negative (Negative) Urine Urobilinogen Negative (Negative) Ur Leukocyte Esterase Negative (Negative) Urine WBC (Auto) 1-5 (0-5) /hpf Urine RBC (Auto) 0-4 (0-4) /hpf U Hyaline Cast (Auto) 1-5 (0-5) /lpf U Epithel Cells (Auto) >30 H (0-5) /lpf Urine Bacteria (Auto) Negative (Negative) Urine Crystals Not Reportable Calcium Oxalate Crystal Present A (None Prsent) Urine Mucus Present A (None Prsent) SARS-CoV-2, RNA, NAAT NEGATIVE (NEGATIVE) Administered Medications Sodium Chloride (Nss 1000ml) 1,000 mls @ 100 mls/hr IV .Q10H SHAILESH Stop: 11/25/22 00:59 Last Infusion: 10/26/22 05:19 Dose: 100 mls/hr Documented By: Admin: 10/26/22 01:34 Dose: 125 mls/hr Documented By: JACKSON Discontinued Medications Famotidine (Pepcid 20mg Iv Push) 20 mg in 5 mls @ 2.5 mls/min IV NOW STA Stop: 10/26/22 00:59 Last Admin: 10/26/22 01:34 Dose: 2.5 mls/min Documented By: JACKSON Acetaminophen 680 mg/ EMPTY (BAG) 68 mls @ 272 mls/hr IV NOW STA Stop: 10/26/22 00:59 Last Infusion: 10/26/22 01:50 Dose: 0 mls/hr Documented By: Admin: 10/26/22 01:34 Dose: 272 mls/hr Documented By: JACKSON Ioversol (Optiray 320 100ml) 100 ml IV ONCE ONE Stop: 10/26/22 02:26 Last Admin: 10/26/22 02:25 Dose: 94 ml Documented By: CHINTAN Metoclopramide HCl (Metoclopramide Hcl Inj 5 Mg/Ml 2 Ml Vial) 5 mg IV ONE ONE Stop: 10/26/22 00:59 Last Admin: 10/26/22 01:34 Dose: 5 mg Documented By: JACKSON Morphine Sulfate (Morphine Sulfate 2 Mg/Ml Carp) 2 mg IV NOW STA Stop: 10/26/22 00:59 Last Admin: 10/26/22 01:34 Dose: 2 mg Documented By: JACKSON Morphine Sulfate (Morphine Sulfate 2 Mg/Ml Carp) 2 mg IV NOW STA Stop: 10/26/22 03:02 Last Admin: 10/26/22 03:04 Dose: 2 mg Documented By: KENNY Morphine Sulfate (Morphine Sulfate 2 Mg/Ml Carp) 2 mg IV NOW STA Stop: 10/26/22 05:28 Last Admin: 10/26/22 05:33 Dose: 2 mg Documented By: KENNY Imaging Data Radiologist's Impression: Abdomen/Pelvis CT 10/26/22 01:52 Exam(s): CT ABDOMEN + PELVIS With Contrast IV Amt: 94 ml optiray 320 EXAM: CT Abdomen and Pelvis With Intravenous Contrast CLINICAL HISTORY: Reason for exam: upper abd pain, prior gastric resection. TECHNIQUE: Axial computed tomography images of the abdomen and pelvis with intravenous contrast. CTDI is 10.88 mGy and DLP is 449.24 mGy-cm. Automated exposure control was utilized for the study. A dose lowering technique was utilized adhering to the principles of ALARA. CONTRAST: Patient received 94 ml optiray 320 of IV contrast COMPARISON: CT Abdomen Pelvis dated 01/29/2022 FINDINGS: Lung bases: Unremarkable. No mass. No consolidation. Heart: Coronary calcifications. Mediastinum: Small hiatal hernia. ABDOMEN: Liver: Unremarkable. No mass. Gallbladder and bile ducts: Cholecystectomy and central biliary dilation, stable. Pancreas: Unremarkable. No mass. No ductal dilation. Spleen: Unremarkable. No splenomegaly. Adrenals: Unremarkable. No mass. Kidneys and ureters: Mild heterogeneity of the left renal upper pole without discrete renal mass. Similar to the prior. No solid mass. No hydronephrosis. Stomach and bowel: Multiple markedly dilated small bowel loops with air-fluid levels similar to the prior and likely represents small bowel obstruction. Transition point likely in the anterior left lower quadrant, similar to the prior. Associated mesenteric edema and small amount of free fluid in the lower abdomen and pelvis. Stable postoperative changes of the stomach. PELVIS: Appendix: No findings to suggest acute appendicitis. Bladder: Unremarkable. No mass. Reproductive: Hysterectomy. ABDOMEN and PELVIS: Intraperitoneal space: No free air. See above. Bones/joints: Scoliosis and degenerative changes of the spine. No acute fracture. No dislocation. Soft tissues: Unremarkable. Vasculature: Marked aortoiliac atherosclerotic calcifications. No abdominal aortic aneurysm. Lymph nodes: Unremarkable. No enlarged lymph nodes. IMPRESSION: 1. Similar findings of small bowel obstruction. Transition point likely in the anterior left lower quadrant, similar to the prior. Associated mesenteric edema and small amount of free fluid in the lower abdomen and pelvis. Ischemic component not excluded. 2. Mild heterogeneity of the left renal upper pole without discrete renal mass. Similar to the prior. 3. Other incidental nonacute findings. Electronically signed by: Jono Quiñones M.D. 10/26/22 04:21 AM Discharge Plan Visit Data Chief Complaint: Abdominal Pain Stated Complaint: ABDOMINAL PAIN ED Provider: Adamaris Montez Discharge Problem: Abdominal pain, Nausea, Small bowel obstruction Forms Stand Alone Forms: [facility] [place] [employer] Prescriptions Prescriptions: No Action losartan 25 mg tablet 25 mg PO DAILY Qty: 30 2RF alendronate [Fosamax] 70 mg tablet 70 mg PO WK Rx Instructions: TAKES ON FRIDAYS. Take 1 tablet once weekly with 8 ounces of plain water. Wait 60 minutes before eating or drinking anything else Referrals Referrals: Haseeb Stout MD [Primary Care Provider] -
[2022-10-26] MEDS: SODIUM CHLORIDE 0.9% 1000ML 1,000 ML IV SCH ×3 (01:34→18:38)
[2022-10-26 01:50] LABS: Appearance Urine Cloudy (Clear); Bacteria Urine Automated Negative (Negative); Bilirubin Urine Negative (Negative); Blood Urine Negative (Negative); Color Urine Yellow; Epithelial Cell Urine Auto >30 /lpf (0-5); Glucose Urine UA Negative (Negative); Ketones Urine Trace (Negative); Leukocyte Esterase Urine Negative (Negative); Nitrite Urine Negative (Negative); Protein Urine Negative (Negative); RBC Urine Automated 0-4 /hpf (0-4); Specific Gravity Urine 1.027 (1.000-1.030); Urobilinogen Urine Negative (Negative)
[2022-10-26 01:57] LABS: Basophils # (auto) 0.03 K/uL (0-0.2); Basophils % (auto) 0.4 %; Eosinophils # (auto) 0.09 K/uL (0-0.50); Eosinophils % (auto) 1.2 %; Hematocrit (blood only) 39.4 % (37.0-47.0); Hemoglobin 13.1 g/dl (12.0-16.0); Immature Granulocytes # (auto) 0.02 K/uL (0.01-0.20); Immature Granulocytes % (auto) 0.3 %; Lymphocytes # (auto) 1.68 K/uL (1.2-3.4); Lymphocytes % (auto) 21.6 %; Mean Corpuscular Hgb Conc 33.2 g/dL (32.0-36.0); Mean Corpuscular Volume 90.2 fL (80.0-100.0); Mean Platelet Volume 9.5 fL (9.4-12.4); Monocytes # (auto) 0.46 K/uL (0.11-0.59); Monocytes % (auto) 5.9 %; Neutrophils # (auto) 5.49 K/uL (1.40-6.50); Neutrophils % (auto) 70.6 %; Platelet Count 268 K/uL (130-400); RDW Coefficient of Variation 13.2 % (11.5-14.5); RDW Standard Deviation 43.8 fL (36.4-46.3); Red Blood Count 4.37 M/uL (4.20-5.40); White Blood Count 7.77 K/ul (4.8-10.8)
[2022-10-26 02:07] LABS: Albumin Globulin Ratio 1.6 (0.9-2); Albumin Level 4.1 gm/dl (3.4-5.0); BUN Creatinine Ratio 44.4 (10-20); Bilirubin,Total 0.6 mg/dl (0.2-1.0); Calcium 9.4 mg/dl (8.6-10.3); Creatinine Clr Calc Pharmacy 60.3 ml/min; Est GFR (African American) 106.1 ml/min; Est GFR (Non-African American) 91.5 ml/min; Globulin 2.6 gm/dl (2.5-4.0); Magnesium 1.9 mg/dl (1.7-2.4); Potassium 4.1 mmol/L (3.5-5.1); Total Protein 6.7 gm/dl (6.0-8.3)
[2022-10-26 02:13] LABS: Troponin I High Sensitivity 4.4 pg/ml (0-14)
[2022-10-26 02:15] LABS: Calcium Oxalate Crystals Urine Present (None Prsent); Mucus Urine Present (None Prsent)
[2022-10-26] MEDS ORDERED: OPTIRAY 320 100ml IV ONE (02:25)
--- NOTE | 2022-10-26 04:22 | CT Scan Report ---
Exam(s): CT ABDOMEN + PELVIS With Contrast IV Amt: 94 ml optiray 320 EXAM: CT Abdomen and Pelvis With Intravenous Contrast CLINICAL HISTORY: Reason for exam: upper abd pain, prior gastric resection. TECHNIQUE: Axial computed tomography images of the abdomen and pelvis with intravenous contrast. CTDI is 10.88 mGy and DLP is 449.24 mGy-cm. Automated exposure control was utilized for the study. A dose lowering technique was utilized adhering to the principles of ALARA. CONTRAST: Patient received 94 ml optiray 320 of IV contrast COMPARISON: CT Abdomen Pelvis dated 01/29/2022 FINDINGS: Lung bases: Unremarkable. No mass. No consolidation. Heart: Coronary calcifications. Mediastinum: Small hiatal hernia. ABDOMEN: Liver: Unremarkable. No mass. Gallbladder and bile ducts: Cholecystectomy and central biliary dilation, stable. Pancreas: Unremarkable. No mass. No ductal dilation. Spleen: Unremarkable. No splenomegaly. Adrenals: Unremarkable. No mass. Kidneys and ureters: Mild heterogeneity of the left renal upper pole without discrete renal mass. Similar to the prior. No solid mass. No hydronephrosis. Stomach and bowel: Multiple markedly dilated small bowel loops with air-fluid levels similar to the prior and likely represents small bowel obstruction. Transition point likely in the anterior left lower quadrant, similar to the prior. Associated mesenteric edema and small amount of free fluid in the lower abdomen and pelvis. Stable postoperative changes of the stomach. PELVIS: Appendix: No findings to suggest acute appendicitis. Bladder: Unremarkable. No mass. Reproductive: Hysterectomy. ABDOMEN and PELVIS: Intraperitoneal space: No free air. See above. Bones/joints: Scoliosis and degenerative changes of the spine. No acute fracture. No dislocation. Soft tissues: Unremarkable. Vasculature: Marked aortoiliac atherosclerotic calcifications. No abdominal aortic aneurysm. Lymph nodes: Unremarkable. No enlarged lymph nodes. IMPRESSION: 1. Similar findings of small bowel obstruction. Transition point likely in the anterior left lower quadrant, similar to the prior. Associated mesenteric edema and small amount of free fluid in the lower abdomen and pelvis. Ischemic component not excluded. 2. Mild heterogeneity of the left renal upper pole without discrete renal mass. Similar to the prior. 3. Other incidental nonacute findings. Electronically signed by: Jono Quiñones M.D. 10/26/22 04:21 AM
--- NOTE | 2022-10-26 04:44 | History & Physical Report ---
Date of Service October 26, 2022 Assessment & Plan (1) Small bowel obstruction due to adhesions: Plan: 71 yo female with PMHx of HTN, osteoporosis, and h/o SBO due to adhesions presents with abdominal pain. #SBO -1 day worsening abdominal pain with nausea. CT A/P with SBO. Does have history of SBO, recurrences likely due to previous abdominal surgeries (stomach resection, cholecystectomy, appendectomy). -NPO, NSS @ 100, pain control -consider gen surg consult #HTN -resume home losartan when able #Osteoporosis -takes fosamax weekly, may resume when able is she is due for dose DVT ppx: lovenox FEN/GI: NPO, NSS @ 100 Code Status: full Dispo: med surg (2) Abdominal pain: (3) Nausea: (4) Hypertension: (5) Osteoporosis: History of Present Illness Chief Complaint: abdominal pain Primary Care Provider: Haseeb Stout MD 71 yo female with PMHx of HTN, osteoporosis, and h/o SBO due to adhesions presents with abdominal pain. Yesterday evening patient started having progressively worsening abdominal pain with nausea and dry heaving. Denies headache, fever, chest pain, shortness of breath, constipation, diarrhea, vomiting, blood in stool, dysuria. She did try taking Tums and Gas-X at home with no resolve. She has an extensive abdominal surgical history including removal of part of her stomach due to cancer, cholecystectomy, and appendectomy. She does have a history of SBO and states this is probably her third episode. Allergies Allergy/AdvReac Type Severity Reaction Status Date / Time diltiazem Allergy Intermediate RASH Verified 10/26/22 01:05 NSAIDS (Non-Steroidal AdvReac Unknown DR. CHOU Verified 10/26/22 01:05 Anti-Inflamma NOT TO TAKE BECAUSE OF BLEEDING TENDANCY Home Medications Medication Instructions Recorded Confirmed Type losartan 25 mg tablet 25 mg PO DAILY #30 tabs 09/28/22 10/26/22 Rx alendronate 70 mg tablet (Fosamax) 70 mg PO WK 10/26/22 10/26/22 History Past Med/Surg History Medical History COPD (chronic obstructive pulmonary disease) History of gastrectomy History of gastrectomy Osteoporosis Small bowel obstruction due to adhesions Stomach cancer Surgical History History of appendectomy History of cataract surgery Hx of cholecystectomy Hx of hysterectomy Hx of LASIK Family History Grandmother (Paternal) Breast cancer Grandfather (Maternal) Coronary heart disease Myocardial infarction Mother Ovarian cancer Cancer Father , Liver Cancer Grandmother (Maternal) Myocardial infarction Sister Myocardial infarction Aunt Myocardial infarction Denies family history of Prostate cancer Colorectal cancer Pulmonary embolism Social History Smoking Status: Former smoker Tobacco Type: Cigarettes packs per day: 2; Cigarettes Per Day: 2 Packs a day; Smoking End Date: 2006; Second Hand Exposure: No; Do You Dip or Chew Tobacco: No; Hx Alcohol Use: Yes Alcohol type: beer Alcohol Intake Frequency: 2-3 x/Week Hx Substance Use: No Preferred Language: Bur[place]ian Communication Ability: Effective Visual Impairment: No Limitations Hearing Ability: Normal Cane Cutter Required: No Beliefs That Will Affect Care: None marital status: Current Living Situation: Spouse current occupational status: retired current occupation: worked at [employer] as a [employer] How many Children do You have: 2 Other Information That Helps Us Care for You: No Feels Safe at Home: Yes Safety Concerns: Feels Safe At This Time Childhood Exposure to Second-Hand Smoke: Yes Diet: regular caffeine: Yes during the past year weight has: remained stable Dental Care, Regularly: Yes Physical Activity Frequency: Daily Physical Activity Frequency Comment: walk Seatbelt Use: always Sunscreen Use: No Assistive Devices: None Review of Systems Review of Systems: All systems reviewed & are unremarkable except as noted in HPI & below Physical Exam Physical Exam: Constitutional: in no acute distress, pleasant, intact memory. AOx3. Vitals as above. HEENT: No scleral injection or discharge.Moist mucous membranes.Clear oropharynx. Neck: Supple without lymphadenopathy or thyromegaly. Trachea midline. Lungs: Clear to auscultation bilaterally with good effort. Cardiac: Regular rate and rhythm. No murmurs. No extremity edema. 2+ distal peripheral pulses. Abdomen: Hypoactive bowel sounds. Soft and nondistended.Mildly diffuse tenderness L>R. No guarding or rebound tenderness. No hepatosplenomegaly. MSK: No cyanosis or clubbing. Skin: No abnormal rashes, warm, dry. Neurologic: no focal deficits Results & Data Results & Data Vital Signs (Past 12 Hours) Vital Signs Temp Pulse Pulse Resp BP BP Pulse Ox 10/26/22 04:09 71 16 166/82 H 96 10/26/22 02:34 76 16 146/101 H 95 10/26/22 01:20 95 H 18 176/108 H 95 10/26/22 00:44 36.3 C L 107 H 32 H 162/107 H 98 O2 Del Method 10/26/22 04:09 Room Air 10/26/22 02:34 Room Air 10/26/22 01:20 Room Air 10/26/22 00:44 Room Air Laboratory Results Laboratory Results WBC 7.77 K/ul (4.8-10.8) 10/26/22 01:30 RBC 4.37 M/uL (4.20-5.40) 10/26/22 01:30 Hgb 13.1 g/dl (12.0-16.0) 10/26/22 01:30 Hct 39.4 % (37.0-47.0) 10/26/22 01:30 MCV 90.2 fL (80.0-100.0) 10/26/22 01:30 MCH 30.0 pg (25.0-34.0) 10/26/22 01:30 MCHC 33.2 g/dL (32.0-36.0) 10/26/22 01:30 RDW Std Deviation 43.8 fL (36.4-46.3) 10/26/22 01:30 RDW Coeff of Erwin 13.2 % (11.5-14.5) 10/26/22 01:30 Plt Count 268 K/uL (130-400) 10/26/22 01:30 MPV 9.5 fL (9.4-12.4) 10/26/22 01:30 Immature Gran % (Auto) 0.3 % 10/26/22 01:30 Neut % (Auto) 70.6 % 10/26/22 01:30 Lymph % (Auto) 21.6 % 10/26/22 01:30 [place] % (Auto) 5.9 % 10/26/22 01:30 Eos % (Auto) 1.2 % 10/26/22 01:30 Baso % (Auto) 0.4 % 10/26/22 01:30 Neut # (Auto) 5.49 K/uL (1.40-6.50) 10/26/22 01:30 Lymph # (Auto) 1.68 K/uL (1.2-3.4) 10/26/22 01:30 [place] # (Auto) 0.46 K/uL (0.11-0.59) 10/26/22 01:30 Eos # (Auto) 0.09 K/uL (0-0.50) 10/26/22 01:30 Baso # (Auto) 0.03 K/uL (0-0.2) 10/26/22 01:30 Immature Gran # (Auto) 0.02 K/uL (0.01-0.20) 10/26/22 01:30 Sodium 138 mmol/L (136-145) 10/26/22 01:30 Potassium 4.1 mmol/L (3.5-5.1) 10/26/22 01:30 Chloride 104 mmol/L (98-107) 10/26/22 01:30 Carbon Dioxide 27 mmol/L (21-32) 10/26/22 01:30 Anion Gap 7 (3-11) 10/26/22 01:30 BUN 28 mg/dl (6-23) H 10/26/22 01:30 Creatinine 0.63 mg/dl (0.6-1.2) 10/26/22 01:30 Est Cr Clr Drug Dosing 60.3 ml/min 10/26/22 01:30 Est GFR ( Amer) 106.1 ml/min 10/26/22 01:30 Est GFR (Non-Af Amer) 91.5 ml/min 10/26/22 01:30 BUN/Creatinine Ratio 44.4 (10-20) H 10/26/22 01:30 Glucose 114 mg/dl (70-99(Fasting)) H 10/26/22 01:30 Lactate 0.8 mmol/L (0.4-2.0) 10/26/22 01:30 Calcium 9.4 mg/dl (8.6-10.3) 10/26/22 01:30 Magnesium 1.9 mg/dl (1.7-2.4) 10/26/22 01:30 Total Bilirubin 0.6 mg/dl (0.2-1.0) 10/26/22 01:30 AST 25 U/L (13-39) 10/26/22 01:30 ALT 17 U/L (7-52) 10/26/22 01:30 Alkaline Phosphatase 68 U/L (34-104) 10/26/22 01:30 Troponin I High Sens 4.4 pg/ml (0-14) 10/26/22 01:30 Total Protein 6.7 gm/dl (6.0-8.3) 10/26/22 01:30 Albumin 4.1 gm/dl (3.4-5.0) 10/26/22 01:30 Globulin 2.6 gm/dl (2.5-4.0) 10/26/22 01:30 Albumin/Globulin Ratio 1.6 (0.9-2) 10/26/22 01:30 Lipase 12 U/L (11-82) 10/26/22 01:30 Urine Color Yellow 10/26/22 01:30 Urine Appearance Cloudy (Clear) A 10/26/22 01:30 Urine pH 6.0 (4.5-7.5) 10/26/22 01:30 Ur Specific [place] 1.027 (1.000-1.030) 10/26/22 01:30 Urine Protein Negative (Negative) 10/26/22 01:30 Urine Glucose (UA) Negative (Negative) 10/26/22 01:30 Urine Ketones Trace (Negative) H 10/26/22 01:30 Urine Blood Negative (Negative) 10/26/22 01:30 Urine Nitrite Negative (Negative) 10/26/22 01:30 Urine Bilirubin Negative (Negative) 10/26/22 01:30 Urine Urobilinogen Negative (Negative) 10/26/22 01:30 Ur Leukocyte Esterase Negative (Negative) 10/26/22 01:30 Urine WBC (Auto) 1-5 /hpf (0-5) 10/26/22 01:30 Urine RBC (Auto) 0-4 /hpf (0-4) 10/26/22 01:30 U Hyaline Cast (Auto) 1-5 /lpf (0-5) 10/26/22 01:30 U Epithel Cells (Auto) >30 /lpf (0-5) H 10/26/22 01:30 Urine Bacteria (Auto) Negative (Negative) 10/26/22 01:30 Urine Crystals Not Reportable 10/26/22 01:30 Calcium Oxalate Crystal Present (None Prsent) A 10/26/22 01:30 Urine Mucus Present (None Prsent) A 10/26/22 01:30 SARS-CoV-2, RNA, NAAT NEGATIVE (NEGATIVE) 10/26/22 04:40 Impressions Abdomen/Pelvis CT 10/26/22 01:52 Exam(s): CT ABDOMEN + PELVIS With Contrast IV Amt: 94 ml optiray 320 EXAM: CT Abdomen and Pelvis With Intravenous Contrast CLINICAL HISTORY: Reason for exam: upper abd pain, prior gastric resection. TECHNIQUE: Axial computed tomography images of the abdomen and pelvis with intravenous contrast. CTDI is 10.88 mGy and DLP is 449.24 mGy-cm. Automated exposure control was utilized for the study. A dose lowering technique was utilized adhering to the principles of ALARA. CONTRAST: Patient received 94 ml optiray 320 of IV contrast COMPARISON: CT Abdomen Pelvis dated 01/29/2022 FINDINGS: Lung bases: Unremarkable. No mass. No consolidation. Heart: Coronary calcifications. Mediastinum: Small hiatal hernia. ABDOMEN: Liver: Unremarkable. No mass. Gallbladder and bile ducts: Cholecystectomy and central biliary dilation, stable. Pancreas: Unremarkable. No mass. No ductal dilation. Spleen: Unremarkable. No splenomegaly. Adrenals: Unremarkable. No mass. Kidneys and ureters: Mild heterogeneity of the left renal upper pole without discrete renal mass. Similar to the prior. No solid mass. No hydronephrosis. Stomach and bowel: Multiple markedly dilated small bowel loops with air-fluid levels similar to the prior and likely represents small bowel obstruction. Transition point likely in the anterior left lower quadrant, similar to the prior. Associated mesenteric edema and small amount of free fluid in the lower abdomen and pelvis. Stable postoperative changes of the stomach. PELVIS: Appendix: No findings to suggest acute appendicitis. Bladder: Unremarkable. No mass. Reproductive: Hysterectomy. ABDOMEN and PELVIS: Intraperitoneal space: No free air. See above. Bones/joints: Scoliosis and degenerative changes of the spine. No acute fracture. No dislocation. Soft tissues: Unremarkable. Vasculature: Marked aortoiliac atherosclerotic calcifications. No abdominal aortic aneurysm. Lymph nodes: Unremarkable. No enlarged lymph nodes. IMPRESSION: 1. Similar findings of small bowel obstruction. Transition point likely in the anterior left lower quadrant, similar to the prior. Associated mesenteric edema and small amount of free fluid in the lower abdomen and pelvis. Ischemic component not excluded. 2. Mild heterogeneity of the left renal upper pole without discrete renal mass. Similar to the prior. 3. Other incidental nonacute findings. Electronically signed by: Jono Quiñones M.D. 10/26/22 04:21 AM Supervising Physician Co-Signing Physician Notes Attending addendum: I have supervised the medical residents activities, and agree with the H&P unless as otherwise noted. Assessment and Plan: Small bowel obstruction- Transition point left lower quadrant Likely secondary to adhesions Multiple previous abdominal surgeries including stomach resection, cholecystectomy and appendectomy N.p.o. NG tube to low intermittent suction NSS at 100 mils per hour General surgery consult Hypertension- Losartan on hold while n.p.o. Hydralazine 10 mg IV every 4 hours as needed systolic blood pressure greater than 160 Remaining orders and notations as noted Resident Activity Tracking Resident Involvement: Resident Care Provided Care Provided: Adult Hospital Medicine
[2022-10-26] MEDS: ONDANSETRON INJ 2 MG/ML 2 ML VIAL IV PRN ×2 (07:08→16:15)
[2022-10-26] MEDS: ACETAMINOPHEN 1,000 MG/100 ML VIAL IV PRN ×2 (07:12→16:45)
[2022-10-26] MEDS: ENOXAPARIN INJ 40 MG/0.4 ML SYR SQ SCH (09:19)
[2022-10-26] MEDS: MoRPHine SULFATE 2 MG/ML CARP IV PRN ×3 (09:19→19:36)
--- NOTE | 2022-10-26 15:21 | Electrocardiogram Report ---
Test Reason : Blood Pressure : / mmHG Vent. Rate : 083 BPM Atrial Rate : 083 BPM P-R Int : 182 ms QRS Dur : 072 ms QT Int : 360 ms P-R-T Axes : 088 059 083 degrees QTc Int : 423 ms Normal sinus rhythm Normal ECG When compared with ECG of 25-APR-2022 02:32, No significant change was found Confirmed by Vasiliy Hayes ([id number]) on 10/26/2022 3:20:50 PM Referred By: REFERRED SELF Confirmed By:Vasiliy Hayes
--- NOTE | 2022-10-26 16:26 | Communication Note ---
Date of Service: October 26, 2022 Patient was seen this afternoon. She was admitted early this AM with a SBO. She has been NPO and states she did pass flatus x 2 today but no BM. She has had no nausea and no vomiting. She states the abdominal pain is improving and has only had one dose of morphine. She is trying to get up and walk through the hallway. Will try ice chips and sips. If pain increases, nausea or vomiting would consult surgery. Otherwise anticipate to be able to try clear liquids in the AM. Abdominal exam with + BS soft and mild tender to palpation Left abdomen, no R/R/G noted.
[2022-10-26] MEDS: MELATONIN 3 MG TAB PO PRN (21:36)
--- NOTE | 2022-10-27 | Billing Data ---
Date of Service October 27, 2022 Coding Level of Care Code 49069 INT INP/OBS CARE
[2022-10-27] MEDS: MoRPHine SULFATE 2 MG/ML CARP IV PRN ×2 (01:43→13:37)
[2022-10-27] MEDS: SODIUM CHLORIDE 0.9% 1000ML 1,000 ML IV SCH (04:13)
[2022-10-27] MEDS: ENOXAPARIN INJ 40 MG/0.4 ML SYR SQ SCH (06:14)
[2022-10-27] MEDS: ACETAMINOPHEN 1,000 MG/100 ML VIAL IV PRN (06:37)
[2022-10-27 11:22] LABS: BUN Creatinine Ratio 23.1 (10-20); Calcium 8.2 mg/dl (8.6-10.3); Creatinine Clr Calc Pharmacy 76.1 ml/min; Est GFR (Non-African American) 97.5 ml/min; Potassium 4.1 mmol/L (3.5-5.1)
--- NOTE | 2022-10-27 11:33 | XRay Report ---
XR abdomen min 2V CLINICAL HISTORY: SBO, interval change TECHNIQUE: 2 views of the abdomen were obtained. Comparison: Comparison is made to chest and abdomen radiograph 04/09/2013 FINDINGS: Lung bases are unremarkable. Degenerative changes are seen in the visualized skeleton. The bowel gas pattern is nonobstructive. A moderate amount of stool is noted within the large bowel. IMPRESSION: Nonobstructive bowel gas pattern. ACT 112: Negative or not required by law. Electronically signed by: Don Grove M.D. 10/27/2022 11:30 AM
[2022-10-27 11:42] LABS: Ferritin 35.3 ng/ml (8-388)
[2022-10-27 11:48] LABS: Vitamin B12 135 pg/ml (180-914)
[2022-10-27] MEDS ORDERED: DEXTROSE 50% 50 ML SYRINGE IV ONE (12:03)
[2022-10-27] MEDS: D5W AND NSS 1,000 ML IV SCH (12:21)
--- NOTE | 2022-10-27 13:11 | Hospitalist Progress Note ---
Date of Service October 27, 2022 Assessment & Plan (1) Small bowel obstruction due to adhesions: Plan: resolving clinically & radiographically allow clears cont IVF but can lower rate later today if tolerating clears SBO likely on the basis of adhesions had a decent amount of free fluid on the study thus obtained mesenteric dopplers - this returned normal mesenteric ischemia unlikely as cause of her presentation (2) Abdominal pain: Plan: resolved 2nd to #1 (3) Nausea: Plan: 2nd to #1 resolved allow clears (4) Hypertension: Plan: resume losartan titrate as needed (5) Osteoporosis: (6) History of gastrectomy: Plan: she reports entire stomach was removed 2nd to gastric ca at risk of B12 and Fe def she is indeed B12 def (7) B12 deficiency: Plan: will need ongoing parenteral replacement start B12 shots daily while here will need these as outpatient as well (8) Chronic constipation: Plan: will need bowel regimen in the future COPIOUS stool on KUB today reports firm, hard stools at home, and has a BM every few days only (9) Hypoglycemia: Plan: 2nd to prolonged fasting state resolved s/p amp D50 add dextrose to fluids allow clears Plan updated at bedside Admission and Anticipated Discharge Date Admission Date: October 26, 2022 Subjective patient feeling much better in comparison to yesterday abd pain fully resolved passing flatus she has an appetite and wishes to eat no nausea no vomiting she states this episode of SBO was similar to past ones however, the pain was worse than usual patient states her gastrectomy was COMPLETE rather than partial never taken B12/Fe supplements she has had issues with constipation at home recently Review of Systems Review of Systems: gen - no fever cv - no cp pulm - no dyspnea Physical Exam Physical Exam: gen - very thin, NAD, pleasant mouth - MMM neck - no JVD heart - RRR, s1 s2 lungs - CTA b/l abd - soft NT ND BS+, no HSM, no peritoneal signs ext - no edema, pulses 2+ b/l Results & Data Results & Data Vital Signs (Past 12 Hours) Vital Signs Temp Pulse Resp BP Pulse Ox O2 Del Method 10/27/22 07:10 36.8 C 78 16 138/69 93 Room Air Laboratory Results Laboratory Results - last 48 hr 10/27/22 10/27/22 10/27/22 10:51 10:51 12:40 Sodium 138 Potassium 4.1 Chloride 105 Carbon Dioxide 22 Anion Gap 11 BUN 12 Creatinine 0.52 L Est Cr Clr Drug Dosing 76.1 Est GFR ( Amer) 113.0 Est GFR (Non-Af Amer) 97.5 BUN/Creatinine Ratio 23.1 H Glucose 55 L POC Glucose 156 H Calcium 8.2 L Iron 116 TIBC 315 Unsaturated IBC 199 Transferrin % Sat 37 Ferritin 35.3 Vitamin B12 135 L Folate > 22.30 Diagnostic Findings Abdomen X-Ray 10/27/22 10:44 XR abdomen min 2V CLINICAL HISTORY: SBO, interval change TECHNIQUE: 2 views of the abdomen were obtained. Comparison: Comparison is made to chest and abdomen radiograph 04/09/2013 FINDINGS: Lung bases are unremarkable. Degenerative changes are seen in the visualized skeleton. The bowel gas pattern is nonobstructive. A moderate amount of stool is noted within the large bowel. IMPRESSION: Nonobstructive bowel gas pattern. ACT 112: Negative or not required by law. Electronically signed by: Don Grove M.D. 10/27/2022 11:30 AM Mesenteric US 10/27/22 13:10 US duplex mesenteric CLINICAL HISTORY: SBO vs mesenteric ischemia; abd pain TECHNIQUE: Real-time grayscale sonographic images of the mesenteric vessels were obtained. Comparison: None available at the time of this dictation. FINDINGS/IMPRESSION: Mesenteric artery velocity measures 219 cm/s distally. Aortic velocity is 101 cm/s. Celiac artery velocity is 87 cm/s. Exam is negative for hemodynamically significant mesenteric artery stenosis. ACT 112: Negative or not required by law. Electronically signed by: Don Grove M.D. 10/27/2022 3:48 PM PG Care Time/CCT Total # of Minutes Spent Total Time Spent with Patient: Total time spent is greater than 50% in coordination of care (as documented) at patient's floor/unit and/or counseling patient: Coding Level of Care Code 15781 SUB INP/OBS CARE 3/50MIN Diagnoses Small bowel obstruction due to adhesions K56.50 Abdominal pain R10.9 Nausea R11.0 Hypertension I10 Osteoporosis M81.0 History of gastrectomy Z90.3 B12 deficiency E53.8 Chronic constipation K59.09 Hypoglycemia E16.2
[2022-10-27] MEDS: CYANOCOBALAMIN 1000 MCG/ML VIAL IM SCH (15:43)
--- NOTE | 2022-10-27 15:49 | Ultrasound Report ---
US duplex mesenteric CLINICAL HISTORY: SBO vs mesenteric ischemia; abd pain TECHNIQUE: Real-time grayscale sonographic images of the mesenteric vessels were obtained. Comparison: None available at the time of this dictation. FINDINGS/IMPRESSION: Mesenteric artery velocity measures 219 cm/s distally. Aortic velocity is 101 cm /s. Celiac artery velocity is 87 cm/s. Exam is negative for hemodynamically significant mesenteric ar syd stenosis. ACT 112: Negative or not required by law. Electronically signed by: Don Grove M.D. 10/27/2022 3:48 PM
[2022-10-27] MEDS: LOSARTAN POTASSIUM 25 MG TAB PO SCH (17:40)
[2022-10-27] MEDS ORDERED: POLYETHYLENE (MIRALAX) 17 GM PACK PO PRN (21:32)
[2022-10-27] MEDS: MELATONIN 3 MG TAB PO PRN (21:57)
[2022-10-28] MEDS: D5W AND NSS 1,000 ML IV SCH (03:30)
[2022-10-28] MEDS: ENOXAPARIN INJ 40 MG/0.4 ML SYR SQ SCH (05:47)
[2022-10-28 07:02] LABS: BUN Creatinine Ratio 10.9 (10-20); Calcium 8.4 mg/dl (8.6-10.3); Est GFR (African American) 117.6 ml/min; Est GFR (Non-African American) 101.5 ml/min; Potassium 3.5 mmol/L (3.5-5.1)
[2022-10-28] MEDS: LOSARTAN POTASSIUM 25 MG TAB PO SCH (08:31)
[2022-10-28] MEDS: CYANOCOBALAMIN 1000 MCG/ML VIAL IM SCH (08:32)
--- NOTE | 2022-10-28 20:25 | Discharge Summary ---
Date of Service October 28, 2022 Admission HPI Per Admitting Provider 71 yo female with PMHx of HTN, osteoporosis, and h/o SBO due to adhesions presents with abdominal pain. Yesterday evening patient started having progressively worsening abdominal pain with nausea and dry heaving. Denies headache, fever, chest pain, shortness of breath, constipation, diarrhea, vomiting, blood in stool, dysuria. She did try taking Tums and Gas-X at home with no resolve. She has an extensive abdominal surgical history including removal of part of her stomach due to cancer, cholecystectomy, and appendectomy. She does have a history of SBO and states this is probably her third episode. Discharge Exam gen - very thin, NAD, pleasant mouth - MMM neck - no JVD heart - RRR, s1 s2 lungs - CTA b/l abd - soft NT ND BS+, no HSM, no peritoneal signs ext - no edema, pulses 2+ b/l Discharge Data Allergies Allergy/AdvReac Type Severity Reaction Status Date / Time diltiazem Allergy Intermediate RASH Verified 10/26/22 01:05 NSAIDS (Non-Steroidal AdvReac Unknown DR. CHOU Verified 10/26/22 01:05 Anti-Inflamma NOT TO TAKE BECAUSE OF BLEEDING TENDANCY Consultations 10/26/22 04:50 ED Decision to Admit Stat Ordered Studies 10/26/22 01:52 CT Abd and Pelvis [CT abd pelvis IV con only] Stat 10/27/22 13:10 US duplex mesenteric Routine Hospital Course (1) Small bowel obstruction due to adhesions: resolving clinically & radiographically allow clears cont IVF but can lower rate later today if tolerating clears SBO likely on the basis of adhesions had a decent amount of free fluid on the study thus obtained mesenteric dopplers - this returned normal mesenteric ischemia unlikely as cause of her presentation (2) Abdominal pain: resolved 2nd to #1 (3) Nausea: 2nd to #1 resolved allow clears (4) Hypertension: resume losartan titrate as needed (5) Osteoporosis: (6) History of gastrectomy: she reports entire stomach was removed 2nd to gastric ca at risk of B12 and Fe def she is indeed B12 def (7) B12 deficiency: will need ongoing parenteral replacement start B12 shots daily while here will need these as outpatient as well (8) Chronic constipation: will need bowel regimen in the future COPIOUS stool on KUB today reports firm, hard stools at home, and has a BM every few days only (9) Hypoglycemia: 2nd to prolonged fasting state resolved s/p amp D50 add dextrose to fluids allow clears Plan updated at bedside Discharge Plan Discharge Items Patient Disposition: Home - Self-Care Reason For Visit: ABDOMINAL PAIN Discharge Diagnosis: 1. small bowel obstruction - resolved 2. vitamin B12 deficiency 3. history of gastrectomy 4. high blood pressure 5. constipation Activity: As commented below Activity Comment: gradually increase activities over the next 3-5 days Non-emergency contact: Primary Care Provider Call non-emergency contact if: you have any medication questions, your symptoms worsen and you have a fever Follow-up/Referrals: Haseeb Stout MD [Primary Care Provider] - Diet: Low Fiber Addtl Attending Provider Instructions: Mrs Castellanos, Mello were hospitalized for small bowel obstruction. This improved with diet restriction, IV fluids, and time. Your x-rays on 10/27 showed resolution of the bowel blockage. You have been passing plenty of gas and you have had stools over the last 24 hours. You have tolerated a full liquids diet without nausea, vomiting, or abdominal pain. During the stay we found evidence of vitamin B12 deficiency. Your level was 135 (normal is 180 or higher). This is likely due to your history of gastrectomy. We gave you 2 shots of vitamin B12 while here. Your iron levels suggest that your total body iron storage is on the lower end of normal. This simply bears watching over time. Recommendations - 1. Diet - Starting with breakfast on 10/29 GRADUALLY re-introduce low fiber foods into your diet. See "low fiber" diet handout. Go slowly with this step. Focus on good hydration over the next few days as well. Stay on a low fiber diet for 1 week, then resume normal fiber-containing foods thereafter. 2. Constipation - in about 1 week you can start to take miralax one serving daily. Some people need to take miralax twice daily. Shoot for 1 soft bowel movement at least every other day. Again you can start the miralax in about 1 week. 3. Vitamin B12 - please ask Dr Stout to provide you B12 shots at the office. I would recommend 1 shot per week for 4 weeks straight, then once or twice a month thereafter. Follow-up - see Dr Stout THIS WEEK Return to [facility] if - * you have fevers over 100 degrees * you have recurrent abdominal pain, nausea or vomiting * you have inability to pass gas or stool * any other concerns It was our pleasure to care for you! -Dr Carranza Pending Studies at Discharge: No Stand-Alone Forms: My [facility], Smoking Cessation Medications and DC Order Prescriptions: Continued losartan 25 mg tablet 25 mg PO DAILY Qty: 30 2RF alendronate [Fosamax] 70 mg tablet 70 mg PO WK Rx Instructions: TAKES ON FRIDAYS. Take 1 tablet once weekly with 8 ounces of plain water. Wait 60 minutes before eating or drinking anything else Discharge Orders: Discharge Order (Routine); Ordered 10/28/22 Ordered By: Jevon Mejia/Other Patient Handouts: Low-Fiber Diet Admission Data Admit Date/Time: 10/26/22 05:16 Attending Provider: Jevon Carranza Admit Provider: Kamron Calero Primary Care Provider: Haseeb Stout Other Providers: Kaushik Plunkett Coding Diagnoses Small bowel obstruction due to adhesions K56.50 Abdominal pain R10.9 Nausea R11.0 Hypertension I10 Osteoporosis M81.0 History of gastrectomy Z90.3 B12 deficiency E53.8 Chronic constipation K59.09 Hypoglycemia E16.2
== END 2022-10-28 20:52 | disposition home or self-care (01) | DRG 390 ==
LOC: ED 00:40 → 3W 05:16 → SUATTDRO 05:16 → 3W 06:10

== ENCOUNTER 2023-01-03 09:26 | Observation (INO) ==
--- NOTE | 2022-12-18 16:15 | PAT Medication Instructions ---
Medication Instructions Date of Service December 18, 2022 Home Medications Medication Instructions Recorded albuterol sulfate 90 mcg/actuation 1 inh inhalation QID PRN shortness 11/19/22 breath activated powder inhaler of breath or wheezing #1 ea fluticasone 500 mcg-salmeterol 50 1 inh inhalation BID 30 days #60 ea 11/19/22 mcg/dose blistr powdr for inhalation (Advair Diskus) simvastatin 20 mg tablet 20 mg PO QPM #30 tabs 11/19/22 alendronate 70 mg tablet (Fosamax) 70 mg PO WK albuterol sulfate 90 mcg/actuation breath activated powder inhaler 1 inh inhalation QID PRN shortness of breath or wheezing fluticasone 500 mcg-salmeterol 50 mcg/dose blistr powdr for inhalation (Advair Diskus) 1 inh inhalation BID simvastatin 20 mg tablet 20 mg PO QPM losartan 25 mg tablet 25 mg PO QAM Continue as directed alendronate 70 mg tablet (Fosamax) 70 mg PO WK DO NOT take the morning of surgery losartan 25 mg tablet 25 mg PO QAM Take morning of surgery With a small sip of water, OTHERWISE NOTHING TO EAT OR DRINK AFTER MIDNIGHT: albuterol sulfate 90 mcg/actuation breath activated powder inhaler 1 inh inhalation QID PRN shortness of breath or wheezing (use if needed; please bring rescue inhaler with you to hospital day of surgery if possible) fluticasone 500 mcg-salmeterol 50 mcg/dose blistr powdr for inhalation (Advair Diskus) 1 inh inhalation BID Take evening before surgery albuterol sulfate 90 mcg/actuation breath activated powder inhaler 1 inh inhalation QID PRN shortness of breath or wheezing (if needed) fluticasone 500 mcg-salmeterol 50 mcg/dose blistr powdr for inhalation (Advair Diskus) 1 inh inhalation BID simvastatin 20 mg tablet 20 mg PO QPM Other Notes If you have any questions please call us at [phone] or [phone] or [phone] or [phone]
--- NOTE | 2022-12-20 11:12 | Anesthesiology Consultation ---
Date of Service December 20, 2022 Assessment & Plan (1) Encounter for pre-operative examination: - COVID screening: Per assessment on 12/20: No known COVID-19 positive contacts or current COVID-19 related symptoms. No recent Covid positive test result. - Outpatient joint assessment: Pt currently scheduled for inpatient pathway. If surgeon requests review for outpatient joint pathway, patient is an acceptable candidate for [facility] outpatient joint program from anesthesia standpoint pending surgeon's office assessment that patient is motivated, has good support and completes Same Day Joint Program preop requirements. - Patient acceptable risk for surgery pending recent PCP preop office visit note (MNP 12/19, note still in draft). Chart Review Chart Review: Patient seen in Pre Admission Testing Teaching & Discussion Pre-Anesthesia Teaching/Discussion Notes: Instructed NPO after midnight before surgery,except medications with 15 cc of water. Medication instructions provided according to the PAT guidelines. History Surgery Operation Date: 01/03/23 09:40 Proposed Procedures p Left Total Shoulder Arthroplasty - Keyon Cheek MD Height/Weight Height: 5 ft 2 in Weight: 46.2 kg Allergies Allergy/AdvReac Type Severity Reaction Status Date / Time diltiazem Allergy Intermediate Rash Verified 12/19/22 11:54 NSAIDS (Non-Steroidal AdvReac Unknown Advised to Verified 12/20/22 11:10 Anti-Inflamma avoid d/t "bleeding tendency" (hx gastrectomy) Medications Home Medications Medication Instructions Recorded Confirmed Last Taken alendronate 70 mg tablet (Fosamax) 70 mg PO WK 10/26/22 12/19/22 10/19/22 albuterol sulfate 90 mcg/actuation 1 inh inhalation QID PRN shortness 11/19/22 12/19/22 Unknown breath activated powder inhaler of breath or wheezing #1 ea fluticasone 500 mcg-salmeterol 50 1 inh inhalation BID 30 days #60 ea 11/19/22 12/19/22 Unknown mcg/dose blistr powdr for inhalation (Advair Diskus) simvastatin 20 mg tablet 20 mg PO QPM #30 tabs 11/19/22 12/19/22 Unknown losartan 25 mg tablet 25 mg PO QAM 12/17/22 12/19/22 Unknown Past Medical History Medical History COPD (chronic obstructive pulmonary disease) Glaucoma laser surgery to correct Hyperlipidemia Hypertension Lung nodule seen on imaging study Meniere's disease Osteoporosis Prediabetes diet controlled Small bowel obstruction due to adhesions 10/2022, treated at [facility] with diet modifications, no surgical intervention required Stomach cancer 2008 > gastrectomy Exercise / Class Metabolic Activity II 4-5 Yardwork/Stairs/Walk up hill (one FS (no CP, no SOB)) Past Family History Family History Grandmother (Paternal) Breast cancer Grandfather (Maternal) Coronary heart disease Myocardial infarction Mother Ovarian cancer Cancer Father , Liver Cancer Grandmother (Maternal) Myocardial infarction Sister Myocardial infarction Aunt Myocardial infarction Denies family history of Prostate cancer Colorectal cancer Pulmonary embolism Past Surgical History Surgical History History of appendectomy History of arthroscopy R/L shoulder History of carpal tunnel release R/L History of cataract surgery R/L History of colonoscopy History of gastrectomy History of tooth extraction Hx of cholecystectomy Hx of hysterectomy Hx of LASIK Past Anesthesia History No Hx of Anesthesia Complications and No Family Hx of Anesthesia Complications History of PONV No Hx of PONV and Hx of Motion Sickness (+ vertigo/Meniere's disease) Social History Smoking Status: Former smoker tobacco type: cigarettes Do You Dip or Chew Tobacco: No Smoking End Date: 2006 (Hx 2 PPD) Hx Alcohol Use: Yes Alcohol type: beer alcohol intake frequency: a few times a week Hx Substance Use: No substance use type: does not use Review of Systems Patient denies chest pain, shortness of breath, dyspnea on exertion, fever, chills, cough, wheezing, palpitations. Physical Exam Vital Signs VITALS BP 147/71 P 76 TEMP 98.4 SP02 95%RA RESP 16 PHYSICAL Full cervical extension range of motion. Full TMJ range of motion. TMD 3 finger breaths Mallampati Score 1 Dentition: intact, + cap upper front right Lungs: clear throughout to auscultation Cardiac: regular rate and rhythm, no murmurs noted Spine: normal Carotid arteries: negative bruit Extremities: no LE edema Lab Results Anesthesia Preop Results Results Anesthesia Widget: WBC 6.19 K/ul (4.8-10.8) 12/20/22 Hgb 11.8 g/dl (12.0-16.0) L 12/20/22 Hct 36.4 % (37.0-47.0) L 12/20/22 Plt 272 K/uL (130-400) 12/20/22 Na 138 mmol/L (136-145) 12/20/22 K 4.4 mmol/L (3.5-5.1) 12/20/22 Cl 107 mmol/L (98-107) 12/20/22 CO2 27 mmol/L (21-32) 12/20/22 BUN 22 mg/dl (6-23) 12/20/22 Creat 0.52 mg/dl (0.6-1.2) L 12/20/22 Glucose Level 100 mg/dl (70-99(Fasting)) H 12/20/22 PT 9.9 Seconds (9.0-12.0) 12/20/22 PTT 23.9 Seconds (21.0-31.0) 12/20/22 INR 0.9 (0.9-1.1) 12/20/22 Urine Color Yellow 12/20/22 Urine Appearance Clear (Clear) 12/20/22 Urine pH 6.5 (4.5-7.5) 12/20/22 Urine Specific [place] 1.023 (1.000-1.030) 12/20/22 Urine Protein Negative (Negative) 12/20/22 Urine Glucose (UA) Negative (Negative) 12/20/22 Urine Ketones Negative (Negative) 12/20/22 Urine Blood Negative (Negative) 12/20/22 Urine Nitrite Negative (Negative) 12/20/22 Urine Bilirubin Negative (Negative) 12/20/22 Urine Urobilinogen Negative (Negative) 12/20/22 Urine Leukocyte Esterase Negative (Negative) 12/20/22 Urine WBC (Auto) 1-5 /hpf (0-5) 10/26/22 Urine RBC (Auto) 0-4 /hpf (0-4) 10/26/22 Urine Hyaline Casts (Auto) 1-5 /lpf (0-5) 10/26/22 Urine Epithelial Cells (Auto) >30 /lpf (0-5) H 10/26/22 Urine Bacteria (Auto) Negative (Negative) 10/26/22 SARS-CoV-2, RNA, NAAT NEGATIVE (NEGATIVE) 10/26/22 Blood Type O Positive 12/20/22 Antibody Screen NEGATIVE 12/20/22 Testing Electrocardiogram Date: 10/26/22 Findings: + NSR @ (83) Chest X-Ray Date: 06/02/22 FINDINGS: No pneumothorax. No pleural effusions. Emphysema again noted. The heart is normal in size. The lungs are clear. A right subclavian Port-A-Cath terminates at the proximal SVC. IMPRESSION: Emphysema. No focal lung consolidations to suggest a pneumonia.
--- NOTE | 2023-01-02 19:26 | History & Physical Report ---
Date of Service January 02, 2023 Assessment & Plan (1) Primary osteoarthritis, left shoulder: Plan: Treatment options discussed with the patient. She has failed conservative measures and would like to proceed with surgical intervention. Risks, benefits and alternatives to surgery including but not limited to infection, DVT, pain, stiffness, need for revision surgery, damage to blood vessels, damage to nerves, PE, , were discussed with the patient and they wish to proceed. Plan for left total shoulder arthroplasty scheduled for [facility] on January [address] Cheek. Plan on outpatient physical therapy postop. All questions answered. Patient will follow-up postoperatively. History of Present Illness Chief Complaint: Left shoulder pain Primary Care Provider: Haseeb Stout MD 72-year-old female with past medical history significant for COPD, Osteoporosis, history of stomach cancer who presents with ongoing left shoulder pain. Pain is interfering with her daily activities. She has failed conservative measures and would like to proceed with surgical intervention. Patient denies headaches, sweats, fevers, chills, double vision, blurred vision, cough, sore throat, dysphagia, chest pain, sob, wheezing, n/v/d/c, numbness, tingling, fatigue, urinary symptoms, mood disorders. ROS positive for left shoulder pain and stiffness. Allergies Allergy/AdvReac Type Severity Reaction Status Date / Time diltiazem Allergy Intermediate Rash Verified 12/19/22 11:54 NSAIDS (Non-Steroidal AdvReac Unknown Advised to Verified 12/20/22 11:10 Anti-Inflamma avoid d/t "bleeding tendency" (hx gastrectomy) Home Medications Medication Instructions Recorded Confirmed Type alendronate 70 mg tablet (Fosamax) 70 mg PO WK 10/26/22 12/19/22 History albuterol sulfate 90 mcg/actuation 1 inh inhalation QID PRN shortness 11/19/22 12/19/22 Rx breath activated powder inhaler of breath or wheezing #1 ea fluticasone 500 mcg-salmeterol 50 1 inh inhalation BID 30 days #60 ea 11/19/22 12/19/22 Rx mcg/dose blistr powdr for inhalation (Advair Diskus) simvastatin 20 mg tablet 20 mg PO QPM #30 tabs 11/19/22 12/19/22 Rx losartan 25 mg tablet 25 mg PO QAM 12/17/22 12/19/22 History Past Med/Surg History Medical History COPD (chronic obstructive pulmonary disease) Glaucoma laser surgery to correct Hyperlipidemia Hypertension Lung nodule seen on imaging study Meniere's disease Osteoporosis Prediabetes diet controlled Small bowel obstruction due to adhesions 10/2022, treated at [facility] with diet modifications, no surgical intervention required Stomach cancer 2008 > gastrectomy Surgical History History of appendectomy History of arthroscopy R/L shoulder History of carpal tunnel release R/L History of cataract surgery R/L History of colonoscopy History of gastrectomy History of tooth extraction Hx of cholecystectomy Hx of hysterectomy Hx of LASIK Family History Grandmother (Paternal) Breast cancer Grandfather (Maternal) Coronary heart disease Myocardial infarction Mother Ovarian cancer Cancer Father , Liver Cancer Grandmother (Maternal) Myocardial infarction Sister Myocardial infarction Aunt Myocardial infarction Denies family history of Prostate cancer Colorectal cancer Pulmonary embolism Social History Smoking Status: Former smoker Tobacco Type: Cigarettes packs per day: 2; Smoking End Date: 2006 (Hx 2 PPD); Second Hand Exposure: No; Do You Dip or Chew Tobacco: No; Tobacco Cessation Education Requested by Patient: No Hx Alcohol Use: Yes Alcohol type: beer Alcohol Intake Frequency: 2-3 x/Week Hx Substance Use: No Preferred Language: Persian Communication Ability: Effective Visual Impairment: No Limitations Hearing Ability: Normal Production Support Manager Required: No Beliefs That Will Affect Care: None marital status: Current Living Situation: Spouse current occupational status: retired current occupation: worked at [employer] as a [employer]IE[employer] How many Children do You have: 2 Other Information That Helps Us Care for You: No Feels Safe at Home: Yes Safety Concerns: Feels Safe At This Time Childhood Exposure to Second-Hand Smoke: Yes Diet: regular caffeine: Yes during the past year weight has: remained stable Dental Care, Regularly: Yes Physical Activity Frequency: Daily Physical Activity Frequency Comment: walk Seatbelt Use: always Sunscreen Use: No Assistive Devices: Glasses Review of Systems All systems reviewed & are unremarkable except as noted in HPI & below Physical Exam Constitutional: well developed and well nourished; no acute distress Eyes: PERRL, conjunctivae normal, anicteric sclerae ENMT: external ear and nose normal, oropharynx normal Neck: trachea midline, no thyromegaly Respiratory: normal respiratory effort, lungs clear to auscultation Cardiovascular: RRR, no murmur, no edema Musculoskeletal: Left shoulder:Painful range of motion. External rotation of 30 degrees, forward flexion to 150 degrees, abduction to 100 degrees. Has pain with strength testing. Positive impingement signs. Skin: no rashes, warm and dry Neurologic: patellar DTR's 2+ bilat, sensation intact Psychiatric: A+Ox3, euthymic affect Results & Data Diagnostic Findings Left shoulder radiographs demonstrate advanced osteoarthritis glenohumeral joint, [id number] anterior glenohumeral joint. There is periarticular osteophytes.
[~2023-01-03 09:26] MED LIST changes: -ACET-1256 PO; +ACETAMINOPHEN 500 MG TAB PO SCH; -ADVIN50/60 INH; +BUPIVACAINE 0.5 % 5 MG/1 ML PF 10ML VIAL ONE; -CHOL1TAB42; -DOXY100C76 PO; +FAMOTIDINE 20 MG TAB PO SCH; +GABAPENTIN 300 MG CAP PO SCH; -IPRA-64 INH; +LR 15ML/HR IV SCH; +LR 60ML/HR IV SCH; +METOCLOPRAMIDE HCL 10 MG TABLET PO SCH; -PRED10TA PO; -PROAIR HFA 108 INH; +TRANEXAMIC ACID 1,000 MG **IV Intra-op IV SCH; +TRANEXAMIC ACID 1,000 MG **IV Pre-op IV SCH; -ZOLE5INJ IV; +ceFAZolin 2000MG 2,000 MG/15 ML SYR IV SCH; +dexAMETHasone 4 MG TAB PO SCH
--- NOTE | 2023-01-03 10:08 | History & Physical Bridge Note ---
Date of Service January 03, 2023 History & Physical Bridge Note I have examined the patient, reviewed the History & Physical and in the interval since the performance of the History & Physical I have noted the following changes of clinical significance: no changes noted
[2023-01-03] MEDS ORDERED: ATROPINE SULFATE 0.1 MG/ML 10ML SYR IV PRN (10:12)
[2023-01-03] MEDS ORDERED: ONDANSETRON INJ 2 MG/ML 2 ML VIAL IV PRN (10:12)
[2023-01-03] MEDS ORDERED: ePHEDrine sulfate 50 MG/ML AMP IV PRN (10:12)
[2023-01-03] MEDS ORDERED: EPINEPHrine INJ 1 MG/ML AMP ONE (10:43)
[2023-01-03] MEDS ORDERED: EpINEphrine HCL INJ 1 MG/ML 1ML SYRINGE ONE (10:55)
[2023-01-03] MEDS ORDERED: fentaNYL citrate PF 100 MCG/2 ML VIAL ONE (11:06)
[2023-01-03] MEDS ORDERED: DEXAMETHASONE SOD INJ 4 MG/ML VIAL ONE (11:06)
[2023-01-03] MEDS ORDERED: MIDAZOLAM HCL 1 MG/ML 2ML VIAL ONE (11:06)
[2023-01-03] MEDS ORDERED: ROCURONIUM BROMIDE 10 MG/ML 5 ML VIAL IV ONE (11:06)
[2023-01-03] MEDS ORDERED: SUGAMMADEX SODIUM 200 MG/2 ML VIAL IV ONE (11:06)
[2023-01-03] MEDS ORDERED: PROPOFOL IV EMULSION 10 MG/ML 20 ML VIAL IV ONE (11:06)
[2023-01-03] MEDS ORDERED: ONDANSETRON INJ 2 MG/ML 2 ML VIAL ONE (11:06)
[2023-01-03] MEDS ORDERED: PHENYLEPHRINE HCL 10 MG/ML VIAL ONE (12:15)
[2023-01-03] MEDS: fentaNYL citrate PF 100 MCG/2 ML VIAL IV PRN ×4 (14:29→14:44)
--- NOTE | 2023-01-03 14:32 | Operative Report ---
Post Operative Report Pre & Post Diagnosis Operation Date: 01/03/23 11:20 Pre-Op Diagnosis: Left Shoulder Glenohumeral Osteoarthritis Post-Op Diagnosis: Left Shoulder glenohumeral Osteoarthritis , biceps tenosynovitis with tendinopathy proximal I identified the patient and participated in the time-out.: Yes Procedure Operation Date: 01/03/23 11:20 Actual Procedures p Left Total Shoulder Arthroplasty, Cemented(Left), biceps tenodesis - Keyon Cheek MD Surgeon Keyon Cheek MD Manager Urgent Care Maximiliano ZARCO Estimated Blood Loss 45 Findings Consistent with Post-Op Diagnosis Specimens bone cut humeral head Drains 2 Hemovac Anesthesia Type General Regional Complications none Disposition Disposition: Recovery Room Indications 72-year-old female with progressive osteoarthritis in her left glenohumeral joint and decreased range of motion over time. She has failed conservative management. She has had previous arthroscopic debridement noting advanced humeral head arthritic changes. Description of Procedure The patient was taken to the operating room and anesthetized under a general and regional block anesthesia. A towel roll was placed under the medial border of the scapula of the left shoulder. The patient's head was placed on a foam headrest and protective eyewear was placed and the extremities were well padded. The arm was draped free in order to manipulate the shoulder as necessary. The shoulder exam demonstrated forward flexion to 160 degrees abduction and 90 degrees external rotation forward flexion to 160 degrees abduction and 90 degrees external rotation only to 15 degrees. The left shoulder was sterilely prepped and draped in the usual sterile fashion. An anterior deltopectoral approach was performed. A longitudinal incision was made in the interval. The skin was incised sharply and subcutaneous tissues dissected down to the fascia. The cephalic vein was identified and retracted laterally with the deltoid. Any crossing veins were tied off with silk ties and divided. The clavipectoral fascia was divided at the lateral margin of the conjoined tendon and divided up to the level of the coracoacromial ligament which was preserved. The upper 1 cm of the pectoralis was released for inferior exposure. The biceps tendon findings demonstrated biceps tenosynovitis with proximal widening intra- articularly consistent with tendinopathy. The rotator cuff tendon findings demonstrated some scarred bursal tissue overlying the rotator cuff with intact rotator cuff. The circumflex vessels were identified and tied off with silk ties and divided laterally. The fibers and subscapularis were split longitudinally at the level of the circumflex vessels down to the capsule and then reflected off the inferior capsule using a Kitner elevator. The axillary nerve was identified with a tug test and protected with a blunt Brittny retractor. The rotator interval was opened up and extended down to the glenoid. The biceps tendon was identified and tenodesed to the pectoralis tendon with [id number] #2 FiberWire sutures in the proximal biceps was resected. The subscapularis tendon was taken down with a trans-tendinous incision leaving a cuff of tissue for repair on the lesser tuberosity. The incision was carried down through the tendon and the capsule and a #1 Vicryl suture was placed into the free end of the subscapularis tendon. The capsule was subperiosteally dissected off the inferior neck of the humerus exposing the humeral osteophytes which demonstrated moderately large osteophytes anterior inferior posterior and some superior. Humeral head itself was grade 4 articular wear. The osteophytes were excised with a rongeur. The capsular release along the inferior neck of the humerus was completed. The humerus was then retracted posterior to the glenoid with a Fukuda retractor. The remainder of the biceps tendon and labrum were resected. The glenoid findings demonstrated grade 3 wear of the glenoid no exposed bone. I did an anterior inferior and posterior inferior release with electrocautery on bone and a Santamaria elevator with the axillary nerve continuing to be protected with the blunt Hohmann retractor inferiorly. When the releases were completed and the humeral head was exposed with some extension and external rotation and in anatomic head cut was made using the oscillating saw. The Tornier total shoulder arthroplasty was used including the Cortiloc glenoid component and ascend flex PTC stem. Attention was first taken to preparation of the humeral shaft. A centralizing awl was used followed by broaches up to the appropriate size which was a 3 stem. It was noted that there was a cyst in the greater tuberosity area after the starter awl was used. The trial broach was left in place and a cut protector was placed. The humerus was then retracted posterior to the glenoid using a Bankart retractor anteriorly and blunt Brittny and posterior Tornier glenoid retractor. A central drill hole was made into the glenoid. The glenoid was sized for a size small 30 radius component. The glenoid was reamed and the central drill widened and the guide for the 3 peripheral peg holes was placed in the peg holes were drilled and a trial component was placed with a tight fit. The trial was removed and the glenoid was irrigated with pulsatile lavage antibiotic solution and the drill holes were dried and packed with epinephrine-soaked tampons for hemostasis. The Palacos G cement was vacuum mixed. The final component was cemented into position and held in position with pressure until the cement cured. A humeral head trial was placed. A trial reduction was performed and the shoulder was stable. The trial was removed and the humerus and canal were irrigated with pulsed saline solution. 3 drill holes were made into the hard bone in the bicipital groove lateral to the lesser tuberosity and 3 #5 FiberWire transosseous sutures were placed for repair of the subscapularis with Too -Cameron suture technique. After further irrigation of the canal and the final components were assembled. The final components were the 40 x 18 low offset humeral head assembled to the ascend flex PTC 3B standard length stem. After irrigation of the canal bone graft from the humeral head cancellous bone was used to bone graft the bone cyst in the greater tuberosity and cancellous bone graft was placed around the humeral implant to enhance press-fit fixation. The implant was then impacted into the humerus with a tight press-fit. The humerus was reduced to the glenoid and stability verified. The subscapularis was repaired with the #5 FiberWire sutures in a Too-Cameron suture technique and lateral row fixation with [id number] #2 FiberWire in the soft tissue. The rotator interval was closed and maximal external rotation. The pectoralis was then closed with [id number] #2 FiberWire suture. The sutures were passed through the biceps tendon as well to reinforce the biceps tenodesis. The arm was taken through range of motion no sign for degrees forward flexion 100 degrees AB duction 10 degrees external rotation without tension on the repair. Shoulder was stable without any subluxation. 2 Hemovac drains were placed. The deltopectoral interval was closed with [id number] #1 Vicryl sutures. The subcutaneous ti ssues were closed with interrupted 2-0 Vicryl and the skin was closed with smith and a sterile dressing was applied. The patient tolerated the procedure well. Maximiliano ZARCO, my physician hospital clinic assistant, patient positioning, assisted in soft tissue retraction instrument management suture management and assisted in the subcutaneous and skin closure and will participate in the postoperative care the patient. I attest to the content of the Intraoperative Record and any orders documented therein. Any exceptions are noted below.
--- NOTE | 2023-01-03 15:55 | XRay Report ---
LEFT SHOULDER 2 VIEWS CLINICAL HISTORY: Postoperative examination. FINDINGS: 2 portable views of the left shoulder are obtained. The skeletal structures are osteopenic. A left shoulder arthroplasty is in near anatomic alignment. No acute fracture is seen. Skin clips, a surgical drain, subcutaneous gas, and soft tissue swelling overlying the left shoulder are expected postsurgical changes. The visualized left lung parenchymal appears clear. A right-sided central venou s infusion port catheter is noted. IMPRESSION: Expected postsurgical findings status post left shoulder arthroplasty. No acute fracture seen. Electronically signed by: Ulisses Kaye M.D. 01/03/2023 3:53 PM
[2023-01-03] MEDS ORDERED: diphenhydrAMINE 50 MG/ML VIAL IV PRN (16:04)
[2023-01-03] MEDS ORDERED: HYDROmorphone INJ 0.5 MG/0.5 ML SYR IV PRN (16:04)
[2023-01-03] MEDS ORDERED: oxyCODONE HCL IR 5 MG TAB (IMMEDIATE RELEASE) PO PRN (16:04)
[2023-01-03] MEDS ORDERED: SODIUM CHLORIDE 0.9% 1,000 ML IV SCH (16:04)
[2023-01-03] MEDS ORDERED: MAGNESIUM HYDROXIDE SUSP 30 ML UDC PO PRN (16:04)
[2023-01-03] MEDS ORDERED: bisacodyL 10 MG SUPP PR PRN (16:04)
[2023-01-03] MEDS ORDERED: NALOXONE HCL 0.4 MG/1 ML VIAL/CARP IV PRN (16:04)
[2023-01-03] MEDS ORDERED: ALBUTEROL HFA 8 GM INHALER INH PRN (16:12)
--- NOTE | 2023-01-03 17:30 | Hospitalist Consultation ---
Date of Consultation January 03, 2023 Assessment & Plan (1) Primary osteoarthritis, left shoulder: s/p left total shoulder arthroplasty post-op management as per Ortho pain control, bowel regimen to be added given long history of issues with constipation leading to SBOs-add senna and miralax follow CBC, BMP (2) Hypertension: BPs controlled HOLD home losartan for tomorrow AM follow BMP (3) Prediabetes: most recent A1C 6.2% no need for insulin or glucose checks here (4) Hyperlipidemia: continue simvastatin (5) History of gastrectomy: noted (6) B12 deficiency: noted on last admission continue replacement as outpatient (7) Chronic constipation: add Miralax and scheduled senna (8) COPD with emphysema: use home nebs and maintenance inhaler no acute issues (9) Osteoporosis: continue fosamax at home once weekly Plan DVT proph-SCDs Dispo-continued stay on med/surg. Hospitalist service will follow along History of Present Illness Reason for Consultation: Post-op medical management Requesting Physician: Dr. Cheek Attending Physician: Keyon Cheek MD History of Present Illness This pt is a 72 yo female with a h/o HTN, gastric CA s/p gastrectomy, B12 deficiency, COPD, lung nodule, SBO, osteoporosis, constipation, here s/p left total shoulder arthroplasty. SHe is doing well, has no pain so far. Denies any SOB, chest pain, nausea. Hospitalist service consulted for post op medical management Allergies Allergy/AdvReac Type Severity Reaction Status Date / Time diltiazem Allergy Intermediate Rash Verified 01/03/23 10:01 NSAIDS (Non-Steroidal AdvReac Unknown Advised to Verified 01/03/23 10:01 Anti-Inflamma avoid d/t "bleeding tendency" (hx gastrectomy) Home Medications Medication Instructions Recorded Confirmed Type alendronate 70 mg tablet (Fosamax) 70 mg PO WK 10/26/22 01/03/23 History albuterol sulfate 90 mcg/actuation 1 inh inhalation QID PRN shortness 11/19/22 01/03/23 Rx breath activated powder inhaler of breath or wheezing #1 ea fluticasone 500 mcg-salmeterol 50 1 inh inhalation BID 30 days #60 ea 11/19/22 01/03/23 Rx mcg/dose blistr powdr for inhalation (Advair Diskus) simvastatin 20 mg tablet 20 mg PO QPM #30 tabs 11/19/22 01/03/23 Rx losartan 25 mg tablet 25 mg PO QAM 12/17/22 01/03/23 History Patient History Medical History (Updated 01/03/23 @ 17:30 by Kaylen Thomas MD) B12 deficiency Chronic constipation COPD (chronic obstructive pulmonary disease) Glaucoma laser surgery to correct History of gastrectomy Hyperlipidemia Hypertension Lung nodule seen on imaging study Lung nodule seen on imaging study Meniere's disease Osteoporosis Prediabetes diet controlled Small bowel obstruction due to adhesions 10/2022, treated at [facility] with diet modifications, no surgical intervention required Stomach cancer 2007 > gastrectomy Surgical History History of appendectomy History of arthroscopy R/L shoulder History of carpal tunnel release R/L History of cataract surgery R/L History of colonoscopy History of gastrectomy History of tooth extraction Hx of cholecystectomy Hx of hysterectomy Hx of LASIK Family History Grandmother (Paternal) Breast cancer Grandfather (Maternal) Coronary heart disease Myocardial infarction Mother Ovarian cancer Cancer Father , Liver Cancer Grandmother (Maternal) Myocardial infarction Sister Myocardial infarction Aunt Myocardial infarction Denies family history of Prostate cancer Colorectal cancer Pulmonary embolism Social History Smoking Status: Former smoker Tobacco Type: Cigarettes packs per day: 2; Smoking End Date: 2006 (Hx 2 PPD); Second Hand Exposure: No; Do You Dip or Chew Tobacco: No; Tobacco Cessation Education Requested by Patient: No Hx Alcohol Use: Yes Alcohol type: beer Alcohol Intake Frequency: 2-3 x/Week Hx Substance Use: No Preferred Language: Singaporean Communication Ability: Effective Visual Impairment: No Limitations Hearing Ability: Normal Ostomy Nurse Required: No Beliefs That Will Affect Care: None marital status: Current Living Situation: Spouse current occupational status: retired 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 How many Children do You have: 2 Other Information That Helps Us Care for You: No Feels Safe at Home: Yes Safety Concerns: Feels Safe At This Time Childhood Exposure to Second-Hand Smoke: Yes Diet: regular caffeine: Yes during the past year weight has: remained stable Dental Care, Regularly: Yes Physical Activity Frequency: Daily Physical Activity Frequency Comment: walk Seatbelt Use: always Sunscreen Use: No Assistive Devices: Glasses Review of Systems Review of Systems: All systems reviewed & are unremarkable except as noted in HPI & below Physical Exam Constitutional: WD/WN, vitals as above Eyes: PERRL, conjunctivae normal, anicteric sclerae ENMT: external ear and nose normal, oropharynx normal Neck: trachea midline, no thyromegaly Respiratory: normal respiratory effort, lungs clear to auscultation Cardiovascular: RRR, no murmur, no edema Chest (Breasts): Chest: normal inspection of chest Gastrointestinal (Abdomen): normal bowel sounds, soft, nontender, no hepatosplenomegaly Musculoskeletal: Extremities: + extremities abnormal to inspection (LUE in shoulder sling), no cyanosis and no clubbing Skin: no rashes, warm and dry Neurologic: moves all extremities and awake; no focal motor deficits Psychiatric: A+Ox3, euthymic affect Lymphatic: no lymphedema Results & Data Results & Data Vital Signs (Past 12 Hours) Vital Signs Temp Pulse Pulse Resp BP Pulse Ox O2 Del Method 01/03/23 16:45 36.3 C L 73 16 128/69 94 Room Air 01/03/23 16:19 36.4 C L 77 16 121/67 91 Room Air 01/03/23 15:35 74 16 114/68 93 Nasal Cannula 01/03/23 15:15 73 16 120/61 92 Room Air 01/03/23 15:05 36.4 C L 74 18 127/66 93 Room Air 01/03/23 14:55 70 18 128/64 94 Oxymask 01/03/23 14:35 77 19 139/70 97 Oxymask 01/03/23 15:25 74 15 113/64 93 Room Air 01/03/23 14:45 70 18 140/74 98 Oxymask 01/03/23 14:26 36.3 C L 82 17 165/71 H 98 Oxymask 01/03/23 09:55 36.5 C 94 H 20 144/95 H 96 Room Air O2 Flow Rate 01/03/23 16:45 01/03/23 16:19 01/03/23 15:35 2 01/03/23 15:15 01/03/23 15:05 01/03/23 14:55 2 01/03/23 14:35 6 01/03/23 15:25 01/03/23 14:45 4 01/03/23 14:26 6 01/03/23 09:55 Laboratory Results preop labs reviewed PG Care Time/CCT Total # of Minutes Spent Total Time Spent with Patient: Total time spent is greater than 50% in coordination of care (as documented) at patient's floor/unit and/or counseling patient: Coding Level of Care Code 42275 IN/OBS CONSULT LVL 3,45M Diagnoses Primary osteoarthritis, left shoulder M19.012 Hypertension I10 Prediabetes R73.03 Hyperlipidemia E78.5 History of gastrectomy Z90.3 B12 deficiency E53.8 Chronic constipation K59.09 COPD with emphysema J43.9 Osteoporosis M81.0
--- NOTE | 2023-01-03 17:38 | Anesthesiology Progress Note ---
Date of Service January 03, 2023 Anesthesia Post Procedure Vital Signs Vital Signs: Temp Pulse Pulse Resp BP Pulse Ox O2 Del Method 01/03/23 16:45 36.3 C L 73 16 128/69 94 Room Air 01/03/23 16:19 36.4 C L 77 16 121/67 91 Room Air 01/03/23 15:35 74 16 114/68 93 Nasal Cannula 01/03/23 15:15 73 16 120/61 92 Room Air 01/03/23 15:05 36.4 C L 74 18 127/66 93 Room Air 01/03/23 14:55 70 18 128/64 94 Oxymask 01/03/23 14:35 77 19 139/70 97 Oxymask 01/03/23 15:25 74 15 113/64 93 Room Air 01/03/23 14:45 70 18 140/74 98 Oxymask 01/03/23 14:26 36.3 C L 82 17 165/71 H 98 Oxymask 01/03/23 09:55 36.5 C 94 H 20 144/95 H 96 Room Air O2 Flow Rate 01/03/23 16:45 01/03/23 16:19 01/03/23 15:35 2 01/03/23 15:15 01/03/23 15:05 01/03/23 14:55 2 01/03/23 14:35 6 01/03/23 15:25 01/03/23 14:45 4 01/03/23 14:26 6 01/03/23 09:55 Pain Intensity Bilateral Lower Back: Pain Intensity: 4 Transfer of Care Handoff Completed per policy Notes Mental Status: alert / awake / arousable and participated in evaluation Patient Amnestic to Procedure: Yes Nausea / Vomiting: adequately controlled Pain: adequately controlled Airway Patency, RR, SpO2: stable & adequate BP & HR: stable & adequate Hydration State: stable & adequate Anesthetic Complications: no major complications apparent and Pt Satisfied with anesthetic care
[2023-01-03] MEDS: DOCUSATE SODIUM 100 MG CAP PO SCH (20:29)
[2023-01-03] MEDS: ceFAZolin 1000MG 1,000 MG/7.5 ML SYR IV SCH (20:29)
[2023-01-03] MEDS: POLYETHYLENE (MIRALAX) 17 GM PACK PO SCH (20:42)
[2023-01-03] MEDS ORDERED: SENNA 8.6 MG TAB PO SCH (21:00)
[2023-01-03] MEDS ORDERED: SIMVASTATIN 20 MG TAB PO SCH (21:00)
[2023-01-03] MEDS: ACETAMINOPHEN 500 MG TAB PO SCH (21:27)
[2023-01-03] MEDS: ONDANSETRON INJ 2 MG/ML 2 ML VIAL IV PRN (21:27)
[2023-01-04] MEDS: ceFAZolin 1000MG 1,000 MG/7.5 ML SYR IV SCH (05:00)
[2023-01-04] MEDS: ACETAMINOPHEN 500 MG TAB PO SCH (05:01)
[2023-01-04 06:36] LABS: Basophils # (auto) 0.02 K/uL (0.00-0.20); Basophils % (auto) 0.2 %; Hematocrit (blood only) 33.1 % (37.0-47.0); Hemoglobin 10.8 g/dl (12.0-16.0); Immature Granulocytes # (auto) 0.05 K/uL (0.01-0.20); Immature Granulocytes % (auto) 0.5 %; Lymphocytes # (auto) 1.31 K/uL (1.20-3.40); Lymphocytes % (auto) 12.4 %; Mean Corpuscular Hemoglobin 29.5 pg (25.0-34.0); Mean Corpuscular Hgb Conc 32.6 g/dL (32.0-36.0); Mean Corpuscular Volume 90.4 fL (80.0-100.0); Mean Platelet Volume 9.3 fL (9.4-12.4); Monocytes # (auto) 1.01 K/uL (0.11-0.59); Monocytes % (auto) 9.6 %; Neutrophils # (auto) 8.16 K/uL (1.40-6.50); Neutrophils % (auto) 77.3 %; Platelet Count 283 K/uL (130-400); RDW Coefficient of Variation 12.7 % (11.5-14.5); RDW Standard Deviation 42.2 fL (36.4-46.3); Red Blood Count 3.66 M/uL (4.20-5.40); White Blood Count 10.55 K/ul (4.8-10.8)
[2023-01-04 06:51] LABS: BUN Creatinine Ratio 32.4 (10-20); Calcium 8.2 mg/dl (8.6-10.3); Creatinine Clr Calc Pharmacy 54.7 ml/min; Est GFR (African American) 102.7 ml/min; Est GFR (Non-African American) 88.6 ml/min; Potassium 4.3 mmol/L (3.5-5.1)
[2023-01-04] MEDS: DOCUSATE SODIUM 100 MG CAP PO SCH (07:45)
[2023-01-04] MEDS: POLYETHYLENE (MIRALAX) 17 GM PACK PO SCH (07:46)
[2023-01-04] MEDS: ONDANSETRON INJ 2 MG/ML 2 ML VIAL IV PRN (07:47)
[2023-01-04] MEDS ORDERED: LOSARTAN POTASSIUM 25 MG TAB PO SCH (09:00)
[2023-01-04] MEDS ORDERED: MULTIVITAMIN TAB PO SCH (09:00)
[2023-01-04] MEDS ORDERED: FLUTICASONE/VILANTEROL 200/25MCG 14 PUFFS/INHALER INH SCH (09:00)
--- NOTE | 2023-01-04 09:00 | Orthopedic Progress Note ---
Date of Service January 04, 2023 Assessment & Plan (1) Primary osteoarthritis, left shoulder: Plan: Postop day 1 status post left total shoulder arthroplasty PT/OT protocols. Nonweightbearing left upper extremity. DVT prophylaxis-SCDs. Pain management as written DC planning-patient is planning for outpatient PT upon discharge. Plan on discharge home today Admission and Anticipated Discharge Date Admission Date: January 03, 2023 Subjective Postop day 1 Patient sitting up in bed awake and alert. No complaints this morning. Pain is controlled. States that her block is still working. Physical Exam Physical Exam: Dressings are clean, dry, and intact. Sling is in place. Continues to have her nerve block working. She is able to move some of her fingers but continues to have weakness with flexion and extension of the thumb and wrist. Decreased sensation across all of her fingers. She states that she can feel me touching her fingers but her fingers feel "asleep". Cap refill is less than 2 seconds Results & Data Vital Signs (Past 12 Hours) Vital Signs Temp Pulse Resp BP Pulse Ox O2 Del Method 01/04/23 07:10 36.7 C 77 16 153/83 H 93 Room Air 01/04/23 02:06 36.6 C 73 18 146/72 H 96 Room Air 01/03/23 22:41 36.8 C 83 18 128/72 96 Room Air Laboratory Results Laboratory Results WBC 10.55 K/ul (4.8-10.8) 01/04/23 06:17 RBC 3.66 M/uL (4.20-5.40) L 01/04/23 06:17 Hgb 10.8 g/dl (12.0-16.0) L 01/04/23 06:17 Hct 33.1 % (37.0-47.0) L 01/04/23 06:17 MCV 90.4 fL (80.0-100.0) 01/04/23 06:17 MCH 29.5 pg (25.0-34.0) 01/04/23 06:17 MCHC 32.6 g/dL (32.0-36.0) 01/04/23 06:17 RDW Std Deviation 42.2 fL (36.4-46.3) 01/04/23 06:17 RDW Coeff of Erwin 12.7 % (11.5-14.5) 01/04/23 06:17 Plt Count 283 K/uL (130-400) 01/04/23 06:17 MPV 9.3 fL (9.4-12.4) L 01/04/23 06:17 Immature Gran % (Auto) 0.5 % 01/04/23 06:17 Neut % (Auto) 77.3 % 01/04/23 06:17 Lymph % (Auto) 12.4 % 01/04/23 06:17 [place] % (Auto) 9.6 % 01/04/23 06:17 Eos % (Auto) 0.0 % 01/04/23 06:17 Baso % (Auto) 0.2 % 01/04/23 06:17 Neut # (Auto) 8.16 K/uL (1.40-6.50) H 01/04/23 06:17 Lymph # (Auto) 1.31 K/uL (1.20-3.40) 01/04/23 06:17 [place] # (Auto) 1.01 K/uL (0.11-0.59) H 01/04/23 06:17 Eos # (Auto) 0.00 K/uL (0.00-0.50) 01/04/23 06:17 Baso # (Auto) 0.02 K/uL (0.00-0.20) 01/04/23 06:17 Immature Gran # (Auto) 0.05 K/uL (0.01-0.20) 01/04/23 06:17 Sodium 137 mmol/L (136-145) 01/04/23 06:17 Potassium 4.3 mmol/L (3.5-5.1) 01/04/23 06:17 Chloride 106 mmol/L (98-107) 01/04/23 06:17 Carbon Dioxide 26 mmol/L (21-32) 01/04/23 06:17 Anion Gap 5 (3-11) 01/04/23 06:17 BUN 22 mg/dl (6-23) 01/04/23 06:17 Creatinine 0.68 mg/dl (0.6-1.2) 01/04/23 06:17 Est Cr Clr Drug Dosing 54.7 ml/min 01/04/23 06:17 Est GFR ( Amer) 102.7 ml/min 01/04/23 06:17 Est GFR (Non-Af Amer) 88.6 ml/min 01/04/23 06:17 BUN/Creatinine Ratio 32.4 (10-20) H 01/04/23 06:17 Glucose 125 mg/dl (70-99(Fasting)) H 01/04/23 06:17 Calcium 8.2 mg/dl (8.6-10.3) L 01/04/23 06:17 Impressions Shoulder X-Ray 01/03/23 14:37 LEFT SHOULDER 2 VIEWS CLINICAL HISTORY: Postoperative examination. FINDINGS: 2 portable views of the left shoulder are obtained. The skeletal structures are osteopenic. A left shoulder arthroplasty is in near anatomic alignment. No acute fracture is seen. Skin clips, a surgical drain, subcutaneous gas, and soft tissue swelling overlying the left shoulder are expected postsurgical changes. The visualized left lung parenchymal appears clear. A right-sided central venous infusion port catheter is noted. IMPRESSION: Expected postsurgical findings status post left shoulder arthroplasty. No acute fracture seen. Electronically signed by: Ulisses Kaye M.D. 01/03/2023 3:53 PM
--- NOTE | 2023-01-04 13:22 | Hospitalist Progress Note ---
Date of Service January 04, 2023 Assessment & Plan (1) Primary osteoarthritis, left shoulder: Plan: day 1 s/p left total shoulder arthroplasty post-op management as per Ortho pain control, bowel regimen to be added given long history of issues with constipation leading to SBOs-add senna and miralax follow CBC, BMP (2) Hypertension: Plan: BPs controlled HOLD home losartan for tomorrow AM follow BMP (3) Prediabetes: Plan: most recent A1C 6.2% no need for insulin or glucose checks here (4) Hyperlipidemia: Plan: continue simvastatin (5) History of gastrectomy: Plan: noted (6) B12 deficiency: Plan: noted on last admission continue replacement as outpatient (7) Chronic constipation: Plan: add Miralax and scheduled senna (8) COPD with emphysema: Plan: use home nebs and maintenance inhaler no acute issues (9) Osteoporosis: Plan: continue fosamax at home once weekly Plan DVT proph-SCDs Dispo-continued stay on med/surg. Hospitalist service will follow along Admission and Anticipated Discharge Date Admission Date: January 03, 2023 Subjective patient seen and examined, sitting up in the bed, arm in a sling Review of Systems Review of Systems: All systems reviewed are negative, apart from the ones contained in the history. Physical Exam Physical Exam: The patient is awake, alert and oriented 3, well developed and well nourished, normocephalic and atraumatic, lying in bed and in no acute distress. HEENT--PERRL, EOMI, mucous membranes and oropharynx mildly dry Neck--supple. No JVD. No bruits. Thyroid normal, trachea midline, no adenopathy. Heart--normal S1 and S2. No murmurs, rubs or gallops. Lungs--clear bilaterally, no respiratory distress, no accessory muscle use. Abdomen--normal bowel sounds and soft. Mild epigastric and left sided abdominal pain Extremities--no cyanosis or clubbing. No edema. Dermatologic--normal skin turgor, normal color, no abnormal lymph nodes, no rash. Neurologic--cranial nerves II through XII grossly intact. Rheumatologic--normal range of motion. Psychiatric--normal affect. Results & Data Results & Data Vital Signs (Past 12 Hours) Vital Signs Temp Pulse Resp BP Pulse Ox O2 Del Method 01/04/23 07:10 98.1 F 77 16 153/83 H 93 Room Air 01/04/23 02:06 97.9 F 73 18 146/72 H 96 Room Air PG Care Time/CCT Total # of Minutes Spent Total Time Spent with Patient: Total time spent is greater than 50% in coordination of care (as documented) at patient's floor/unit and/or counseling patient: Coding Level of Care Code 44754 SUB INP/OBS CARE 2/35MIN Diagnoses Primary osteoarthritis, left shoulder M19.012 Hypertension I10 Prediabetes R73.03 Hyperlipidemia E78.5 History of gastrectomy Z90.3 B12 deficiency E53.8 Chronic constipation K59.09 COPD with emphysema J43.9 Osteoporosis M81.0 Time Spent (min) 35
--- NOTE | 2023-01-08 08:46 | Discharge Summary ---
Date of Service January 08, 2023 Admission HPI Per Admitting Provider 72-year-old female with past medical history significant for COPD, Osteoporosis, history of stomach cancer who presents with ongoing left shoulder pain. Pain is interfering with her daily activities. She has failed conservative measures and would like to proceed with surgical intervention. Patient denies headaches, sweats, fevers, chills, double vision, blurred vision, cough, sore throat, dysphagia, chest pain, sob, wheezing, n/v/d/c, numbness, tingling, fatigue, urinary symptoms, mood disorders. ROS positive for left shoulder pain and stiffness. Admission Exam Per Admitting Provider Physical Exam Constitutional: well developed and well nourished; no acute distress Eyes: PERRL, conjunctivae normal, anicteric sclerae ENMT: external ear and nose normal, oropharynx normal Neck: trachea midline, no thyromegaly Respiratory: normal respiratory effort, lungs clear to auscultation Cardiovascular: RRR, no murmur, no edema Musculoskeletal: Left shoulder:Painful range of motion. External rotation of 30 degrees, forward flexion to 150 degrees, abduction to 100 degrees. Has pain with strength te sting. Positive impingement signs. Skin: no rashes, warm and dry Neurologic: patellar DTR's 2+ bilat, sensation intact Psychiatric: A+Ox3, euthymic affect Principal Diagnosis Left shoulder osteoarthritis Discharge Data Allergies Allergy/AdvReac Type Severity Reaction Status Date / Time diltiazem Allergy Intermediate Rash Verified 01/03/23 10:01 NSAIDS (Non-Steroidal AdvReac Unknown Advised to Verified 01/03/23 10:01 Anti-Inflamma avoid d/t "bleeding tendency" (hx gastrectomy) Consultations 12/31/22 15:12 Consult Hospitalist Routine Procedures Performed Operation Date: 01/03/23 11:20 Actual Procedures p Left Total Shoulder Arthroplasty, Cemented(Left) - Keyon Cheek MD Ordered Studies 01/03/23 05:00 US - OR guided needle placemen Routine Hospital Course (1) Primary osteoarthritis, left shoulder: Patient:MO SHEETS Admit Date:01/03/23 MR#:[id number] Att Phy:Daphne Rivera MD Acct ID:[id number] Usha Phy:Haseeb Stout MD Date:1950 Liam Phy: Age:72 Location:3E Sex:F Room/Bed:E3[facility] cc: ~ *NOTICE TO RECEIVING CONSTITUTION PARTY/AGENCY This information is strictly Confidential and protected under [place] law. [place] law prohibits you from making any further disclosure of this information unless further disclosure is expressly permitted by the written consent of the person to whom it pertains or is authorized by law. A general authorization for the release of medical or other information is not sufficient for this purpose. Hospital accepts no responsibility if the information is made available to any other person, INCLUDING THE PATIENT. Date of Service January 04, 2023 Assessment & Plan (1) Primary osteoarthritis, left shoulder: Plan: Postop day 1 status post left total shoulder arthroplasty PT/OT protocols. Nonweightbearing left upper extremity. DVT prophylaxis-SCDs. Pain management as written DC planning-patient is planning for outpatient PT upon discharge. Plan on discharge home today Admission and Anticipated Discharge Date Admission Date: January 03, 2023 Subjective Postop day 1 Patient sitting up in bed awake and alert. No complaints this morning. Pain is controlled. States that her block is still working. Physical Exam Physical Exam: Dressings are clean, dry, and intact. Sling is in place. Continues to have her nerve block working. She is able to move some of her fingers but continues to have weakness with flexion and extension of the thumb and wrist. Decreased sensation across all of her fingers. She states that she can feel me touching her fingers but her fingers feel "asleep". Cap refill is less than 2 seconds Results & Data Vital Signs (Past 12 Hours) Vital Signs Temp Pulse Resp BP Pulse Ox O2 Del Method 01/04/23 07:10 36.7 C 77 16 153/83 H 93 Room Air 01/04/23 02:06 36.6 C 73 18 146/72 H 96 Room Air 01/03/23 22:41 36.8 C 83 18 128/72 96 Room Air Laboratory Results Laboratory Results WBC 10.55 K/ul (4.8-10.8) 01/04/23 06:17 RBC 3.66 M/uL (4.20-5.40) L 01/04/23 06:17 Hgb 10.8 g/dl (12.0-16.0) L 01/04/23 06:17 Hct 33.1 % (37.0-47.0) L 01/04/23 06:17 MCV 90.4 fL (80.0-100.0) 01/04/23 06:17 MCH 29.5 pg (25.0-34.0) 01/04/23 06:17 MCHC 32.6 g/dL (32.0-36.0) 01/04/23 06:17 RDW Std Deviation 42.2 fL (36.4-46.3) 01/04/23 06:17 RDW Coeff of Erwin 12.7 % (11.5-14.5) 01/04/23 06:17 Plt Count 283 K/uL (130-400)C 01/04/23 06:17 MPV 9.3 fL (9.4-12.4) L 01/04/23 06:17 Immature Gran % (Auto) 0.5 % 01/04/23 06:17 Neut % (Auto) 77.3 % 01/04/23 06:17 Lymph % (Auto) 12.4 % 01/04/23 06:17 [place]isco[place] % (Auto) 9.6 % 01/04/23 06:17 Eos % (Auto) 0.0 % 01/04/23 06:17 Baso % (Auto) 0.2 % 01/04/23 06:17 Neut # (Auto) 8.16 K/uL (1.40-6.50) H 01/04/23 06:17 Lymph # (Auto) 1.31 K/uL (1.20-3.40) 01/04/23 06:17 [place]iscoe # (Auto) 1.01 K/uL (0.11-0.59) H 01/04/23 06:17 Eos # (Auto)E 0.00 K/uL (0.00-0.50) 01/04/23 06:17 Baso # (Auto) 0.02 K/uL (0.00-0.20) 01/04/23 06:17 Immature Gran # (Auto) 0.05 K/uL (0.01-0.20) 01/04/23 06:17 SodiumE 137 mmol/L (136-145) 01/04/23 06:17 Potassium 4.3 mmol/L (3.5-5.1) 01/04/23 06:17 Chloride 106 mmol/L (98-107) 01/04/23 06:17 Carbon Dioxide 26 mmol/L (21-32) 01/04/23 06:17 Anion Gap 5 (3-11) 01/04/23 06:17 BUN 22 mg/dl (6-23) 01/04/23 06:17 Creatinine 0.68 mg/dl (0.6-1.2) 01/04/23 06:17 Est Cr Clr Drug Dosing 54.7 ml/min 01/04/23 06:17 Est GFR ( Amer) 102.7 ml/min 01/04/23 06:17 Est GFR (Non-Af Amer) 88.6 ml/min 01/04/23 06:17 BUN/Creatinine Ratio 32.4 (10-20) H 01/04/23 06:17 Glucose 125 mg/dl (70-99(Fasting)) H 01/04/23 06:17 Calcium 8.2 mg/dl (8.6-10.3) L 01/04/23 06:17 Impressions Shoulder X-Ray 01/03/23 14:37 LEFT SHOULDER 2 VIEWS CLINICAL HISTORY: Postoperative examination. FINDINGS: 2 portable views of the left shoulder are obtained. The skeletal structures are osteopenic. A left shoulder arthroplasty is in near anatomic alignment. No acute fracture is seen. Skin clips, a surgical drain, subcutaneous gas, and soft tissue swelling overlying the left shoulder are expected postsurgical changes. The visualized left lung parenchymal appears clear. A right-sided central venous infusion port catheter is noted. IMPRESSION: Expected postsurgical findings status post left shoulder arthroplasty. No acute fracture seen. Electronically signed by: Ulisses Kaye M.D. 01/03/2023 3:53 PM Signed By: <Electronically signed by Maximiliano Mccoy PA-C> 01/04/23 0906 Created:01/04/23 0858 Total Time Total Time Spent Total Time Spent (In Minutes): 5 Discharge Plan Discharge Items Patient Disposition: Home - Self-Care Reason For Visit: Left Shoulder Osteoarthritis Discharge Diagnosis: Left Shoulder Osteoarthritis Activity: Per Instructions section Weightbearing: Left non-weightbearing Non-emergency contact: Surgeon Call non-emergency contact if: you have any medication questions, your pain is not controlled, your temperature is above 101.5, your wound has increased redness and your wound has increased drainage Follow-up/Referrals: Haseeb Stout MD [Primary Care Provider] - Keyon Cheek MD [Surgeon] - (Follow up with Dr. Cheek or his PA in 2 weeks from the day of your surgery for your first post operative visit.) Diet: Regular Addtl Attending Provider Instructions: ACTIVITY RECOMMENDATIONS: SELF CARE INSTRUCTIONS AFTER TOTAL SHOULDER ARTHROPLASTY A. You may do daily exercises as taught in physical therapy while in hospital. No lifting with the operative arm. Please schedule your outpatient physical therapy appointment to begin within 2-3 days after leaving the hospital. Specific restrictions will be written on your physical therapy prescription that is provided to you. B. You are to wear your sling/immobilizer at all times EXCEPT when performing your daily exercises, participating in physical therapy and for hygiene purposes. C. You may perform dry, daily dressing changes. Please keep your incision covered. You may shower 48 hours after surgery. Do not apply soap or any ointment/lotions directly over incision. Do not soak incision in bath tub/swimming pool. D. You may use ice as needed to operative shoulder. SPECIAL CARE INSTRUCTIONS: MEDICATION INSTRUCTIONS: *It is recommended you take Aspirin 325mg daily for four weeks post-op. VERY IMPORTANT TO READ AND REVIEW A. There are a few signs you need to watch for after you are home. Call [facility] at [phone] if you experience any of the followin. Increased severe shoulder pain. Some pain is expected especially when you exercise. 2. Increased swelling in you shoulder or arm; pain or swelling in either upper extremity. 3. Any fluid drainage from the incision. 4. Shortness of breath or chest pain. B. Please call [facility] at [phone] if you have any questions or concerns about your operation or recovery. C. Call your physician if: 1. Temperature is greater than 101 degrees (F). 2. Pain is not relieved by prescribed pain medications. 3. Increase drainage or redness from incision. 4. Unanswered questions or concerns. FOLLOW UP VISIT: Please call [facility] at [phone] to schedule a follow up appointment with Dr. Cheek or his PA in 12-14 days from your surgery date. Stand-Alone Forms: Bi[facility], Pain - Opioid Pain Management, Smoking Cessation Medications and DC Order Prescriptions: New acetaminophen [Tylenol Extra Strength] 500 mg Tablet 1,000 mg PO Q8 14 Days Qty: 84 0RF polyethylene glycol 3350 [Miralax] 17 gram powder in packet 17 g PO DAILY PRN (Reason: constipation) Qty: 5 0RF oxycodone 5 mg tablet 5 mg PO Q4H MDD 6 PRN (Reason: pain) Qty: 30 0RF ondansetron 4 mg tablet,disintegrating 4 mg PO Q6H PRN (Reason: nausea and vomiting) Qty: 10 0RF Continued simvastatin 20 mg tablet 20 mg PO QPM Qty: 30 2RF fluticasone propion-salmeterol [Advair Diskus] 500-50 mcg/dose blister with device 1 inh inhalation BID 30 Days Qty: 60 3RF albuterol sulfate 90 mcg/actuation aerosol powdr breath activated 1 inh inhalation QID PRN (Reason: shortness of breath or wheezing) Qty: 1 1RF losartan 25 mg tablet 25 mg PO QAM alendronate [Fosamax] 70 mg tablet 70 mg PO WK Rx Instructions: TAKES ON FRIDAYS. Take 1 tablet once weekly with 8 ounces of plain water. Wait 60 minutes before eating or drinking anything else Discharge Orders: Discharge Order (Routine); Ordered 01/04/23 Ordered By: Maximiliano Mejia/Other Patient Handouts: DVT Post Op Prevention Admission Data Admit Date/Time: 01/03/23 14:37 Attending Provider: Daphne Rivera Admit Provider: Keyon Cheek Primary Care Provider: Haseeb Stout Other Providers: Jevon Carranza [place]. Other Interventions: Discharge Summary Assessment (RN) Last Done: 01/04/23 10:54
== END 2023-01-04 12:27 | disposition home or self-care (01) ==
LOC: ASU 09:26 → 3E 09:26 → SUATTDRO 14:37
DX: Z87.891 Personal history of nicotine dependence; E78.5 Hyperlipidemia, unspecified; Z80.3 Family history of malignant neoplasm of breast; Z80.0 Family history of malignant neoplasm of digestive organs; Z79.899 Other long term (current) drug therapy; Z82.49 Family history of ischemic heart disease and other diseases of the circulatory system; I10 Essential (primary) hypertension; M81.0 Age-related osteoporosis without current pathological fracture; Z80.41 Family history of malignant neoplasm of ovary; K59.09 Other constipation; R73.03 Prediabetes; E53.8 Deficiency of other specified B group vitamins; M19.012 Primary osteoarthritis, left shoulder; Z88.6 Allergy status to analgesic agent; J44.9 Chronic obstructive pulmonary disease, unspecified